=== PATIENT | female | born 1945 | race Caucasian/White ===

== ENCOUNTER → 2018-03-21 07:57 | Outpatient (CLI) | payer OTHER, SELFPAY ==
--- NOTE | 2018-03-21 | DI.MG.S_ITS ---
BILATERAL DIGITAL SCREENING MAMMOGRAM 3D/2D WITH CAD POST LUMPECTOMY: 03/21/2018 CLINICAL: Routine screening. Personal history of right breast cancer. Comparison is made to exams dated: 03/10/2017 mammogram, 03/09/2016 mammogram, and 03/02/2015 mammogram - [facility]. There are scattered fibroglandular elements in both breasts. Current study was also evaluated with a Computer Aided Detection (CAD) system. There are benign post operative findings in the right breast. No significant masses, calcifications, or other findings are seen in either breast. There has been no significant interval change. IMPRESSION: There is no mammographic evidence of malignancy. A 1 year screening mammogram is recommended. This exam was interpreted at Station ID: [id number]. NOTE: For mammograms, a report in lay terms will be sent to the patient. Approximately 15% of breast malignancies will not be visualized mammographically. In the management of a palpable breast mass, a negative mammogram must not discourage biopsy of a clinically suspicious lesion. Electronically Signed By: Connie howard/gianni:03/21/2018 15:59:25 letter sent: Normal Exam ACR BI-RADS Category 2: Benign Finding(s) 3342F
== END ==
PROVIDERS: Family Provider Family Medicine; PCP Family Medicine; Visit Provider Family Medicine
DX: Z12.31 Encounter for screening mammogram for malignant neoplasm of breast (principal); Z85.3 Personal history of malignant neoplasm of breast
CPT/HCPCS: 77063; 77067

== ENCOUNTER 2018-04-25 12:31 | Inpatient (IN) | payer OTHER, SELFPAY ==
[2018-04-25] VITALS (8 sets, daily range): BP systolic 91–154; BP diastolic 51–68; PULSE 79–91; RESP 15–22; TEMP 36.6–36.7; O2SAT 96–100; BMI 24.9
--- NOTE | 2018-04-25 13:03 | ED.SYNCOPE ---
HPI - Syncope General Chief Complaint: Syncope Stated Complaint: PASSED OUT AN HOUR AGO Time Seen by Provider: 04/25/18 12:40 Source: patient Mode of arrival: ambulatory Limitations: no limitations History of Present Illness HPI narrative: Patient is a 72-year-old female who presents after syncopal episode. She says she has been fatigued over the last couple of days. Today while on the toilet she passed out. She felt very lightheaded her was holding her she passed out briefly. As she does have a history of gastric ulcer which was found after numerous blood transfusions and EGD and by that time bleeding had stopped. She is not vomiting she says she does not vomit she sometimes feels nauseated. Over last 1 week she has had some black stool but not consistently. No black stool today. She has no abdominal pain. She denies any shortness of breath. MD complaint: loss of consciousness -: second(s) Related Data Home Medications Medication Instructions Recorded Confirmed lactase 250 mg PO TIDWM #0 05/21/16 04/25/18 loratadine [Claritin] 10 mg PO QDAY #0 05/21/16 04/25/18 aspirin 81 mg PO QDAY #0 09/15/16 04/25/18 CARBOXYMETHYLCELL/HYPROMELLOSE 1 jose OU BID #0 02/08/17 04/25/18 (Genteal Gel Drops) [PRO-BIOTIC] 2 cap PO QDAY #0 02/08/17 04/25/18 [ULTRA-ZYME] 325 mg TIDWM #0 02/08/17 04/25/18 ProAir HFA 2 puff INHALATION PRN PRN 04/25/18 04/25/18 acetaminophen [Tylenol] 650 mg PO Q6H PRN 04/25/18 04/25/18 alprazolam 0.5 - 1 tab PO PRN PRN 04/25/18 04/25/18 beclomethasone dipropionate [Qvar 2 puff INHALATION BID 04/25/18 04/25/18 RediHaler] citalopram 40 mg PO DAILY 04/25/18 04/25/18 clotrimazole-betameth dip-zinc 1 appful TOPICAL BID PRN 04/25/18 04/25/18 cyclobenzaprine 5 - 10 mg PO PRN PRN 04/25/18 04/25/18 diphenhydramine HCl [Benadryl] 50 mg PO Q6-8H PRN 04/25/18 04/25/18 epinephrine [EpiPen 2-Shen] 0.3 mg IM SEE INSTRUCTIONS PRN 04/25/18 04/25/18 fluconazole [Diflucan] 150 mg PO X1 PRN 04/25/18 04/25/18 Previous Rx's Medication Instructions Recorded rizatriptan [Maxalt] 10 mg PO SEE INSTRUCTIONS #12 tab 06/08/17 atenolol 25 mg tablet 25 mg PO QDAY #90 tab 11/23/17 hydrochlorothiazide 25 mg tablet 25 mg PO QDAY #90 tab 02/13/18 nortriptyline 50 mg capsule 50 mg PO HS #90 cap 02/13/18 esomeprazole magnesium 40 mg 40 mg PO QDAY #90 cap 03/13/18 capsule,delayed release ezetimibe 10 mg tablet 10 mg PO Q DAY #90 tab 03/13/18 calcitonin (salmon) 200 1 spray INTRANASAL (ALT) DAILY 03/14/18 unit/actuation nasal spray #3.7 ml Allergies Allergy/AdvReac Type Severity Reaction Status Date / Time lentils [LENTILS] Allergy Severe SOB Verified 04/25/18 13:28 nut - unspecified [NUT] Allergy Severe ANAPHYLAXIS Verified 04/25/18 13:28 soy [SOY] Allergy Severe SOB Verified 04/25/18 13:28 latex [LATEX] Allergy Intermediate RASH Verified 04/25/18 13:28 propofol [PROPOFOL] Allergy Unknown UNSURE OF Verified 04/25/18 13:28 REACTION-related to soy?? corn Allergy Verified 04/25/18 17:31 grapefruit Allergy Verified 04/25/18 17:31 legumes Allergy Verified 04/25/18 17:31 orange Allergy Verified 04/25/18 17:31 potato Allergy Verified 04/25/18 17:31 adhesive tape [ADHESIVE TAPE] AdvReac Mild Verified 04/25/18 13:28 iceburg lettuce Allergy Uncoded 04/25/18 17:31 Review of Systems Review of Systems All systems reviewed & are unremarkable except as noted in HPI and below Constitutional Denies chills, Reports fatigue, Denies fever(s), Denies lethargy and Denies weakness Cardiovascular Reports syncope, Denies palpitations, Denies dyspnea and Denies dyspnea on exertion Respiratory Denies cough, Denies dyspnea, Denies dyspnea on exertion and Denies wheezing Gastrointestinal Gastrointestinal: Reports as per HPI, Denies abdominal pain, Reports change in stool character, Denies diarrhea, Denies nausea and Denies vomiting Musculoskeletal Denies back pain, Denies muscle weakness, Denies numbness and Denies tingling Integumentary/Breasts Denies pruritus, Denies erythema, Denies rash and Denies wounds Neurologic Reports syncope, Denies numbness, Denies tingling and Denies weakness Endocrine Reports fatigue and Denies palpitations Allergic/Immunologic Denies wheezing [facility] Medical History Gastric ulcer (Acute) Surgical History History of cataract removal with insertion of prosthetic lens History of third molar tooth extraction Status post breast lumpectomy Status post hysterectomy Status post laparoscopic cholecystectomy Status post tonsillectomy and adenoidectomy Social History household members: spouse Smoking Status: Never smoker alcohol intake: current Exam Initial Vital Signs Initial Vital Signs: Vital Signs Temperature 98.0 F 04/25/18 12:41 Pulse Rate 89 04/25/18 12:41 Respiratory Rate 15 04/25/18 12:41 Blood Pressure 91/51 L 04/25/18 12:41 Pulse Oximetry 100 04/25/18 12:41 GENERAL: Slightly pale alert and oriented x3 no acute distress HEENT: Head atraumatic,EOMI, pupils reactive, face symmetric, CARDIOVASCULAR: Regular rate and rhythm without murmurs, rubs or gallops. RESPIRATORY: Breath sounds equal bilaterally, no wheezes rales or rhonchi. ABDOMEN: Soft, nontender. Normoactive bowel sounds all 4 quadrants. No guarding or rebound. RECTAL: No stool : No CVA tenderness EXTREMITIES: Normal range of motion, no clubbing or edema. Neurovascularly intact NEUROLOGICAL: Alert and oriented x4.Normal gait and speech. Cranial nerves II through XII grossly intact. SKIN: Warm, dry, no laceration, no petechiae, no rashes or lesions. Course Orders Ordered: ED Orders 04/25/18 13:09 Complete Blood Count AUTO DIFF Stat Comprehensive Metabolic Panel Stat Lactate (Lactic Acid) Stat Packed Cells Stat Partial Thromboplastin Time Stat Prothrombin Time INR Stat Type and Screen Stat Discontinued Medications Sodium Chloride (Normal Saline 0.9%) 1,000 mls @ 1,000 mls/hr IV BOLUS ONE Stop: 04/25/18 14:16 Last Infusion: 04/25/18 14:47 Dose: 0 mls/hr Admin: 04/25/18 13:28 Dose: 1,000 mls/hr Ondansetron HCl (Zofran) 4 mg IV NOW ONE Stop: 04/25/18 13:18 Last Admin: 04/25/18 13:29 Dose: 4 mg Pantoprazole Sodium (Protonix) 40 mg IV NOW ONE Stop: 04/25/18 13:18 Last Admin: 04/25/18 13:29 Dose: 40 mg Vital Signs - 8 hr 04/25/18 12:41 04/25/18 15:07 04/25/18 16:00 Temperature 98.0 F Pulse Rate 89 79 87 Respiratory Rate 15 16 22 Blood Pressure 91/51 L Blood Pressure [Left Arm] 154/54 H 116/61 Pulse Oximetry 100 98 04/25/18 16:16 04/25/18 16:39 Temperature 97.9 F Pulse Rate 82 91 H Respiratory Rate 20 20 Blood Pressure 116/61 109/68 Blood Pressure [Left Arm] Pulse Oximetry 98 100 MDM - Syncope Medical Records Attestation: I reviewed the patient's medical records. Lab Data Attestation: I reviewed the patient's lab results. Result diagrams: 04/25/18 13:09 04/25/18 13:09 Lab Results 04/25/18 04/25/18 04/25/18 Range/Units 13:09 13:09 13:09 WBC 10.5 (4.5-11.0) X10^3/uL RBC 3.41 L (4.0-5.2) X10^6/uL Hgb 10.9 L (12.0-16.0) g/dL Hct 31.4 L (36-46) % MCV 92.1 (80-100) fL MCH 31.9 (26-34) PG MCHC 34.7 (30-36) % RDW 13.6 (11.6-14.8) % Plt Count 265 (150-400) X10^3/uL Neut % (Auto) 73.9 (50-75) % Lymph % (Auto) 16.1 L (25-40) % [place] % (Auto) 8.5 (3-14) % Eos % (Auto) 1.0 L (2-4) % Baso % (Auto) 0.5 (0-2) % Neut # (Auto) 7800 H (1494-9776) /uL PT (10.1-12.7) SECONDS INR (0.9-1.3) APTT (26.4-36.2) SECONDS Sodium (137-145) mmol/L Potassium (3.4-5.1) mmol/L Chloride (98-107) mmol/L Carbon Dioxide (22-32) mmol/L BUN (7-17) mg/dL Creatinine (0.52-1.04) mg/dL Estimated GFR (>60) mL/min BUN/Creatinine Ratio (6-22) Glucose (80-110) mg/dL Lactate 1.5 (0.7-2.1) mmol/L Calcium (8.4-10.2) mg/dL Total Bilirubin (0.2-1.3) mg/dL AST (14-36) IU/L ALT (9-52) IU/L Alkaline Phosphatase (38-126) U/L Total Protein (6.3-8.2) g/dL Albumin (3.5-5.0) g/dL Globulin (1.7-4.1) g/dL Albumin/Globulin Ratio (1.0-2.8) Blood Type A Positive Antibody Screen Negative Crossmatch See Detail 04/25/18 04/25/18 Range/Units 13:09 13:09 WBC (4.5-11.0) X10^3/uL RBC (4.0-5.2) X10^6/uL Hgb (12.0-16.0) g/dL Hct (36-46) % MCV (80-100) fL MCH (26-34) PG MCHC (30-36) % RDW (11.6-14.8) % Plt Count (150-400) X10^3/uL Neut % (Auto) (50-75) % Lymph % (Auto) (25-40) % [place] % (Auto) (3-14) % Eos % (Auto) (2-4) % Baso % (Auto) (0-2) % Neut # (Auto) (7894-2899) /uL PT 12.6 (10.1-12.7) SECONDS INR 1.1 (0.9-1.3) APTT 27 (26.4-36.2) SECONDS Sodium 142 (137-145) mmol/L Potassium 4.1 (3.4-5.1) mmol/L Chloride 105 (98-107) mmol/L Carbon Dioxide 26 (22-32) mmol/L BUN 70 H (7-17) mg/dL Creatinine 0.90 (0.52-1.04) mg/dL Estimated GFR > 60.0 (>60) mL/min BUN/Creatinine Ratio 77.8 H (6-22) Glucose 112 H (80-110) mg/dL Lactate (0.7-2.1) mmol/L Calcium 8.7 (8.4-10.2) mg/dL Total Bilirubin 0.4 (0.2-1.3) mg/dL AST 21 (14-36) IU/L ALT 26 (9-52) IU/L Alkaline Phosphatase 56 (38-126) U/L Total Protein 5.6 L (6.3-8.2) g/dL Albumin 3.3 L (3.5-5.0) g/dL Globulin 2.3 (1.7-4.1) g/dL Albumin/Globulin Ratio 1.4 (1.0-2.8) Blood Type Antibody Screen Crossmatch [facility] Narrative Medical decision making narrative: Patient is not actively bleeding. Initially hypotensive but blood pressure quickly improved with a small amount of fluid. BUN significantly more elevated than creatinine consistent with upper GI bleed. His hemoglobin been and hematocrit is do not meet criteria for blood transfusion. I have spoken with Dr. Zuniga, updated on patient's history of current symptoms and test results. She agrees to consult. No intervention needed on. Dr. Luevano accepts patient Discharge Plan Departure Patient Disposition: Admitted As Inpatient Clinical Impression: Acute upper gastrointestinal bleeding Discharge Date/Time: 04/25/18 16:58 Interventions: ED Discharge Assessment Last Done: 04/25/18 16:16 Admit Date/Time: 04/25/18 16:03 Admit Provider: Yocasta Mcdonnell
[2018-04-25] MEDS: SODIUM CHLORIDE 0.9% 1,000 ML 1000 ML IV (13:28)
[2018-04-25] MEDS: ONDANSETRON 4 MG/2 ML INJ IV (13:29)
[2018-04-25] MEDS: PANTOPRAZOLE 40 MG VIAL IV ×2 (13:29→23:53)
[2018-04-25 13:31] LABS: Add Manual Diff / Slide Review NO; Basophils Percent Auto 0.5 % (0-2); Hematocrit 31.4 % (36-46); Hemoglobin 10.9 g/dL (12.0-16.0); Lymphocytes Percent Auto 16.1 % (25-40); Mean Corpuscular HGB Conc 34.7 % (30-36); Mean Corpuscular Hemoglobin 31.9 PG (26-34); Mean Corpuscular Volume 92.1 fL (80-100); Monocytes Percent Auto 8.5 % (3-14); Neutrophils Absolute Auto 7800 /uL (1500-7000); Neutrophils Percent Auto 73.9 % (50-75); Platelet Count 265 X10^3/uL (150-400); Red Blood Cell Count 3.41 X10^6/uL (4.0-5.2); Red Cell Distribution Width 13.6 % (11.6-14.8); White Blood Cell Count 10.5 X10^3/uL (4.5-11.0)
--- NOTE | 2018-04-25 13:33 | PC.NURSE ---
pt c/o mucous in her BM this morning. denies CP, N&V
[2018-04-25 13:34] LABS: INR 1.1 (0.9-1.3); Prothrombin Time 12.6 SECONDS (10.1-12.7)
[2018-04-25 13:37] LABS: PTT Partial Thromboplastin Tim 27 SECONDS (26.4-36.2)
[2018-04-25 13:39] LABS: Alanine Aminotransferase 26 IU/L (9-52); Albumin 3.3 g/dL (3.5-5.0); Albumin Globulin Ratio 1.4 (1.0-2.8); Alkaline Phosphatase 56 U/L (38-126); Aspartate Aminotransferase 21 IU/L (14-36); BUN Creatinine Ratio 77.8 (6-22); Bilirubin Total 0.4 mg/dL (0.2-1.3); Blood Urea Nitrogen 70 mg/dL (7-17); Calcium 8.7 mg/dL (8.4-10.2); Carbon Dioxide 26 mmol/L (22-32); Chloride 105 mmol/L (98-107); Estimated Glomerular Filt Rate > 60.0 mL/min (>60); Globulin 2.3 g/dL (1.7-4.1); Glucose 112 mg/dL (80-110); HEMOLYSIS < 15 (0-50); Potassium 4.1 mmol/L (3.4-5.1); Sodium 142 mmol/L (137-145); Total Protein 5.6 g/dL (6.3-8.2)
[2018-04-25 13:44] LABS: Lactate (Lactic Acid) 1.5 mmol/L (0.7-2.1)
--- NOTE | 2018-04-25 19:44 | PC.NURSE ---
Addendum entered by Shadia Campbell R.N. 04/25/18 22:57: 2119 H & H 29.[address] Mcdonnell, no orders received. Original Note: Addendum entered by Shadia Campbell R.N. 04/25/18 21:43: Correction to note below . . .Tele reading from ER report Relatively uneventful evening. Denies discomfort. Tele in place, NSR first degree AVB per ICU staff HL intact.patent. H & H drawn at 2109. Call light w/in reach, bed alarm on for pt safety. Continue w/plan of care. Original Note: Pt arrived from ER to RM 214 at 1630. Pt and spouse oriented to room and call system. Pt states she had a syncopal episode earlier today. Denies such at this time. Tele in place showing NSR per ICU staff. HL in LFA intact/patent. Call light w/in reach, bed alarm on for pt safety.
--- NOTE | 2018-04-25 21:23 | PM.HP.1 ---
History of Present Illness Date Patient Seen: 04/25/18 Time Patient Seen: 16:45 Chief complaint: PASSED OUT AN HOUR AGO Narrative: Patient is a 72-year-old female who follows with Dr. Babin here today with her because of the syncopal episode earlier today. She has a history of a GI bleed in the past year requiring 4 units of blood. Her blood pressures at home and on presentation were systolic in the 80s. She was given fluids in the emergency department and her blood pressures have improved and she is feeling much better. Tells me for the last few days she has been feeling more fatigued than normal. She tells me that last week she had a stool that smelled like melena. However she has not had any stools that looked like melena. She has a history constipation predominant IBS. She also tells me that yesterday afternoon she had an episode of a looser stool with some urgency so she took some antidiarrheal medications. Physician in the ED was unable to get stool on rectal exam. She has no pain type complaints. She does occasionally get abdominal distension but does not have that now. Patient History Medical History Breast cancer (Acute) Gastric ulcer (Acute) IBS (irritable bowel syndrome) (Acute) Surgical History History of cataract removal with insertion of prosthetic lens History of third molar tooth extraction Status post breast lumpectomy Status post hysterectomy Status post laparoscopic cholecystectomy Status post tonsillectomy and adenoidectomy Family & Social History Social History: household members spouse Safety & Behavioral: Feels Safe in Current Yes Environment Been Physically Hurt or No Threatened By a Person Suicidal Ideation Description None Suicide Plan Description No Plan Tobacco & Substance use: Smoking Status Never smoker alcohol intake current alcohol intake frequency holiday/special occasion Substance Use Type does not use Meds Home Medications Medication Instructions Recorded Confirmed Type lactase 250 mg PO TIDWM #0 05/21/16 04/25/18 History loratadine [Claritin] 10 mg PO QDAY #0 05/21/16 04/25/18 History aspirin 81 mg PO QDAY #0 09/15/16 04/25/18 History CARBOXYMETHYLCELL/HYPROMELLOSE 1 jose OU BID #0 02/08/17 04/25/18 History (Genteal Gel Drops) [PRO-BIOTIC] 2 cap PO QDAY #0 02/08/17 04/25/18 History [ULTRA-ZYME] 325 mg TIDWM #0 02/08/17 04/25/18 History rizatriptan [Maxalt] 10 mg PO SEE INSTRUCTIONS #12 tab 06/08/17 04/25/18 Rx atenolol 25 mg tablet 25 mg PO QDAY #90 tab 11/23/17 04/25/18 Rx hydrochlorothiazide 25 mg tablet 25 mg PO QDAY #90 tab 02/13/18 04/25/18 Rx nortriptyline 50 mg capsule 50 mg PO HS #90 cap 02/13/18 04/25/18 Rx esomeprazole magnesium 40 mg 40 mg PO QDAY #90 cap 03/13/18 04/25/18 Rx capsule,delayed release ezetimibe 10 mg tablet 10 mg PO Q DAY #90 tab 03/13/18 04/25/18 Rx calcitonin (salmon) 200 1 spray INTRANASAL (ALT) DAILY 03/14/18 04/25/18 Rx unit/actuation nasal spray #3.7 ml ProAir HFA 2 puff INHALATION PRN PRN 04/25/18 04/25/18 History acetaminophen [Tylenol] 650 mg PO Q6H PRN 04/25/18 04/25/18 History alprazolam 0.5 - 1 tab PO PRN PRN 04/25/18 04/25/18 History beclomethasone dipropionate [Qvar 2 puff INHALATION BID 04/25/18 04/25/18 History RediHaler] citalopram 40 mg PO DAILY 04/25/18 04/25/18 History clotrimazole-betameth dip-zinc 1 appful TOPICAL BID PRN 04/25/18 04/25/18 History cyclobenzaprine 5 - 10 mg PO PRN PRN 04/25/18 04/25/18 History diphenhydramine HCl [Benadryl] 50 mg PO Q6-8H PRN 04/25/18 04/25/18 History epinephrine [EpiPen 2-Shen] 0.3 mg IM SEE INSTRUCTIONS PRN 04/25/18 04/25/18 History fluconazole [Diflucan] 150 mg PO X1 PRN 04/25/18 04/25/18 History Allergies Allergy/AdvReac Type Severity Reaction Status Date / Time lentils [LENTILS] Allergy Severe SOB Verified 04/25/18 13:28 nut - unspecified [NUT] Allergy Severe ANAPHYLAXIS Verified 04/25/18 13:28 soy [SOY] Allergy Severe SOB Verified 04/25/18 13:28 latex [LATEX] Allergy Intermediate RASH Verified 04/25/18 13:28 propofol [PROPOFOL] Allergy Unknown UNSURE OF Verified 04/25/18 13:28 REACTION-related to soy?? corn Allergy Verified 04/25/18 17:31 grapefruit Allergy Verified 04/25/18 17:31 legumes Allergy Verified 04/25/18 17:31 orange Allergy Verified 04/25/18 17:31 potato Allergy Verified 04/25/18 17:31 adhesive tape [ADHESIVE TAPE] AdvReac Mild Verified 04/25/18 13:28 iceburg lettuce Allergy Uncoded 04/25/18 17:31 Review of Systems Review of Systems All systems reviewed & are unremarkable except as noted in HPI and below Exam Vital Signs (past 8 hours): - 04/25/18 15:07 04/25/18 16:00 04/25/18 16:16 Temperature Pulse Rate 79 87 82 Respiratory Rate 16 22 20 Blood Pressure 116/61 Blood Pressure [Left Arm] 154/54 H 116/61 Pulse Oximetry 98 98 04/25/18 16:39 04/25/18 21:17 Temperature 97.9 F 97.9 F Pulse Rate 91 H 87 Respiratory Rate 20 20 Blood Pressure 109/68 118/54 L Blood Pressure [Left Arm] Pulse Oximetry 100 96 Oxygen Delivery Method Room Air Narrative Exam Narrative: General: Well-developed, well-nourished, female, no acute distress. Heart: Regular rate and rhythm, 2-3/6 murmur heard everywhere Lungs: Clear to auscultation bilaterally, no wheezes, rales or rhonchi Abd: BS+, soft, nontender, nondistended, no rebound, no guarding Extremities: Warm and well perfused, no edema Objective Labs Result Diagrams: 04/25/18 13:09 04/25/18 13:09 Labs: Laboratory Results - last 24 hr 04/25/18 04/25/18 04/25/18 13:09 13:09 13:09 WBC 10.5 RBC 3.41 L Hgb 10.9 L Hct 31.4 L MCV 92.1 MCH 31.9 MCHC 34.7 RDW 13.6 Plt Count 265 Neut % (Auto) 73.9 Lymph % (Auto) 16.1 L [place] % (Auto) 8.5 Eos % (Auto) 1.0 L Baso % (Auto) 0.5 Neut # (Auto) 7800 H PT INR APTT Sodium Potassium Chloride Carbon Dioxide BUN Creatinine Estimated GFR BUN/Creatinine Ratio Glucose Lactate 1.5 Calcium Total Bilirubin AST ALT Alkaline Phosphatase Total Protein Albumin Globulin Albumin/Globulin Ratio Blood Type A Positive Antibody Screen Negative Crossmatch See Detail 04/25/18 04/25/18 13:09 13:09 WBC RBC Hgb Hct MCV MCH MCHC RDW Plt Count Neut % (Auto) Lymph % (Auto) [place] % (Auto) Eos % (Auto) Baso % (Auto) Neut # (Auto) PT 12.6 INR 1.1 APTT 27 Sodium 142 Potassium 4.1 Chloride 105 Carbon Dioxide 26 BUN 70 H Creatinine 0.90 Estimated GFR > 60.0 BUN/Creatinine Ratio 77.8 H Glucose 112 H Lactate Calcium 8.7 Total Bilirubin 0.4 AST 21 ALT 26 Alkaline Phosphatase 56 Total Protein 5.6 L Albumin 3.3 L Globulin 2.3 Albumin/Globulin Ratio 1.4 Blood Type Antibody Screen Crossmatch Assessment & Plan Plan: Assessment/Plan Narrative: 72 yo female with history of GI bleed presenting with syncopal episode secondary to hypotension likely from dehydration given BUN of 70. Responded well to hydration. 1. GI: history of gastric ulcer, gastritis, and reflux. Has been on PPI. Hgb is lower than last checked 12.7 - 10.9. Serial H+H. Blood has been typed and screened. Surgery was consulted. Will monitor for now. Avoid anticoagulants. Protonix twice daily. Can have clears. 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 Monitor for now. 3. Hypertension, depression, anxiety, allergies. Continue home medications. CODE STATUS: full code DVT prophylaxis: SCD's Patient is at high risk for worsening of her anemia and requires hospital monitoring. I anticipate that this will be for the next [address] Babin to see in the AM.
[2018-04-25 21:30] LABS: Hematocrit 29.1 % (36-46); Hemoglobin 9.8 g/dL (12.0-16.0)
[2018-04-25] MEDS: NORTRIPTYLINE HCL 25 MG CAPSULE 50 MG PO (22:44)
[2018-04-25] MEDS: ATENOLOL 25 MG TABLET PO (22:47)
[2018-04-25] MEDS: CITALOPRAM 20 MG TABLET 40 MG PO (22:47)
[2018-04-26] VITALS (7 sets, daily range): BP systolic 97–109; BP diastolic 39–49; PULSE 63–85; RESP 13–18; TEMP 36.4–36.9; O2SAT 97–100
[2018-04-26 05:56] LABS: BUN Creatinine Ratio 57.8 (6-22); Blood Urea Nitrogen 52 mg/dL (7-17); Calcium 8.4 mg/dL (8.4-10.2); Carbon Dioxide 24 mmol/L (22-32); Chloride 110 mmol/L (98-107); Estimated Glomerular Filt Rate > 60.0 mL/min (>60); Glucose 86 mg/dL (80-110); HEMOLYSIS < 15 (0-50); Potassium 3.2 mmol/L (3.4-5.1); Sodium 141 mmol/L (137-145)
[2018-04-26 08:30] LABS: Add Manual Diff / Slide Review NO; Basophils Percent Auto 0.5 % (0-2); Eosinophils Percent Auto 1.6 % (2-4); Hematocrit 28.8 % (36-46); Hemoglobin 9.7 g/dL (12.0-16.0); Lymphocytes Percent Auto 34.7 % (25-40); Mean Corpuscular HGB Conc 33.6 % (30-36); Mean Corpuscular Hemoglobin 30.9 PG (26-34); Mean Corpuscular Volume 92.1 fL (80-100); Monocytes Percent Auto 8.1 % (3-14); Neutrophils Absolute Auto 4700 /uL (1500-7000); Neutrophils Percent Auto 55.1 % (50-75); Platelet Count 237 X10^3/uL (150-400); Red Blood Cell Count 3.13 X10^6/uL (4.0-5.2); Red Cell Distribution Width 13.7 % (11.6-14.8); White Blood Cell Count 8.6 X10^3/uL (4.5-11.0)
--- NOTE | 2018-04-26 09:14 | CM.DANOTE ---
DCP: Case received, EMR reviewed and met with patient. Introduced self and role. DCP template completed with information currently available. Patient is a 72 year old female who admitted yesterday afternoon to the care of the hospitalist team. PCP: Dr. Babin. Payer: confirmed: [facility]. Patient came to hospital via family vehicle, with symptoms of syncope/fatigue. Patient carries diagnosis of Anemia. She has had this history, along with GI bleed. Met with patient in room, pleasant, alert and oriented. She mentioned this anemia has been an ongoing problem. Patient resides with spouse in [place]. She is independent at home. Patient has had transfusions in the past. P: DCP to follow closely. Patient should be able to return home when she is medically stable. Verna Goldberg RN/Technical Expert
[2018-04-26 09:46] LABS: HEMOLYSIS < 15 (0-50); Iron 99 ug/dL (37-170)
[2018-04-26 10:01] LABS: Total Iron Binding Capacity 279 ug/dL (265-497)
[2018-04-26 10:02] LABS: Percent Iron Saturation 35 % (15-50); Transferrin 214 mg/dL (206-381)
--- NOTE | 2018-04-26 10:23 | PC.NURSE ---
Addendum entered by Rosalba Ellison R.N. 04/26/18 15:10: LAB - reported the 1400 H&H to , new order entered for repeat HH at 1800. Original Note: Addendum entered by Rosalba Ellison R.N. 04/26/18 14:56: GI - subhash clear liq lunch, no abd pain, did ambul into br w/formed light and dark brown stool, guaiac positive. Original Note: AM NOTE - alert, spouse in at bedside this am, H&H reviewed with this am, hr 62, reports some dizziness when up to br earlier, discussed medications and will hold atenolol for now, denies nausea and subhash clear liq, ra 98%.
[2018-04-26] MEDS: KCL 40 MEQ IN NS 1,000 ML 125 MEQ IV ×2 (10:43→19:25)
[2018-04-26 11:59] LABS: Ferritin 15.7 ng/mL (11.1-264)
[2018-04-26] MEDS: PANTOPRAZOLE 40 MG VIAL IV (13:40)
[2018-04-26 14:15] LABS: Add Manual Diff / Slide Review NO; Basophils Percent Auto 0.4 % (0-2); Eosinophils Percent Auto 1.6 % (2-4); Hematocrit 24.8 % (36-46); Hemoglobin 8.5 g/dL (12.0-16.0); Lymphocytes Percent Auto 29.3 % (25-40); Mean Corpuscular HGB Conc 34.2 % (30-36); Mean Corpuscular Hemoglobin 31.4 PG (26-34); Mean Corpuscular Volume 91.9 fL (80-100); Monocytes Percent Auto 7.2 % (3-14); Neutrophils Absolute Auto 5200 /uL (1500-7000); Neutrophils Percent Auto 61.5 % (50-75); Platelet Count 219 X10^3/uL (150-400); Red Cell Distribution Width 13.7 % (11.6-14.8); White Blood Cell Count 8.4 X10^3/uL (4.5-11.0)
[2018-04-26 14:26] LABS: BUN Creatinine Ratio 58.8 (6-22); Blood Urea Nitrogen 47 mg/dL (7-17); Calcium 7.9 mg/dL (8.4-10.2); Carbon Dioxide 25 mmol/L (22-32); Chloride 111 mmol/L (98-107); Estimated Glomerular Filt Rate > 60.0 mL/min (>60); Glucose 93 mg/dL (80-110); HEMOLYSIS < 15 (0-50); Potassium 4.1 mmol/L (3.4-5.1); Sodium 144 mmol/L (137-145)
--- NOTE | 2018-04-26 15:34 | P.CONS_ITS ---
History of Present Illness Date Patient Seen: 04/26/18 Time Patient Seen: 10:26 Chief complaint: PASSED OUT AN HOUR AGO Reason for consult: GI bleeding Requesting provider: Vipul Babin Narrative: Elizabeth is a very pleasant 9-year-old lady who is well known to me from prior visits. She has a history of having had a GI bleed about a year ago. She has a Elizabeth fundoplication for significant reflux disease but it has essentially completely failed. She was seen at [facility] for consideration of repeat reflux surgery but due to the presence of significant esophageal dysmotility, she was determined not to be a surgical candidate. She last had an upper GI endoscopy in May 2017. At that time she had no gastritis and no danita ulceration or location for GI bleeding. A month prior to that visit, she had an EGD which showed some gastritis or small ulcer. She had an episode late yesterday afternoon after which time she felt very faint. She says that her energy has been low in the past couple of weeks or so. She does not recall ever seeing any danita blood in her stool. She feels like she has had a couple of stools that smelled like melena but she has not really seen any blood. She also takes iron supplements every day and isn't sure whether not the appearance and smell of the stool was related to the iron. She is concerned about this problem more now than ever because she is planning a 7 week trip to [facility] in [facility] and wants to make sure she has everything settled before leaving the country. Since arriving here, she has not had any stools. She has not had any syncopal episodes or any clinical evidence of bleeding. She was hypotensive when she presented to the emergency room but responded quickly to IV hydration. She denies any abdominal pain at this time. She reports that she has been taking her proton pump inhibitor once daily. Since being admitted to the hospital yesterday, she has been taking it twice daily. [facility] Medical History Breast cancer (Acute) Gastric ulcer (Acute) IBS (irritable bowel syndrome) (Acute) Surgical History History of cataract removal with insertion of prosthetic lens History of third molar tooth extraction Status post breast lumpectomy Status post hysterectomy Status post laparoscopic cholecystectomy Status post tonsillectomy and adenoidectomy Social History household members: spouse Smoking Status: Never smoker alcohol intake: current Meds Home Medications Medication Instructions Recorded Confirmed Type lactase 250 mg PO TIDWM #0 05/21/16 04/25/18 History loratadine [Claritin] 10 mg PO QDAY #0 05/21/16 04/25/18 History aspirin 81 mg PO QDAY #0 09/15/16 04/25/18 History CARBOXYMETHYLCELL/HYPROMELLOSE 1 jose OU BID #0 02/08/17 04/25/18 History (Genteal Gel Drops) [PRO-BIOTIC] 2 cap PO QDAY #0 02/08/17 04/25/18 History [ULTRA-ZYME] 325 mg TIDWM #0 02/08/17 04/25/18 History rizatriptan [Maxalt] 10 mg PO SEE INSTRUCTIONS #12 tab 06/08/17 04/25/18 Rx atenolol 25 mg tablet 25 mg PO QDAY #90 tab 11/23/17 04/25/18 Rx hydrochlorothiazide 25 mg tablet 25 mg PO QDAY #90 tab 02/13/18 04/25/18 Rx nortriptyline 50 mg capsule 50 mg PO HS #90 cap 02/13/18 04/25/18 Rx esomeprazole magnesium 40 mg 40 mg PO QDAY #90 cap 03/13/18 04/25/18 Rx capsule,delayed release ezetimibe 10 mg tablet 10 mg PO Q DAY #90 tab 03/13/18 04/25/18 Rx calcitonin (salmon) 200 1 spray INTRANASAL (ALT) DAILY 03/14/18 04/25/18 Rx unit/actuation nasal spray #3.7 ml ProAir HFA 2 puff INHALATION PRN PRN 04/25/18 04/25/18 History acetaminophen [Tylenol] 650 mg PO Q6H PRN 04/25/18 04/25/18 History alprazolam 0.5 - 1 tab PO PRN PRN 04/25/18 04/25/18 History beclomethasone dipropionate [Qvar 2 puff INHALATION BID 04/25/18 04/25/18 History RediHaler] citalopram 40 mg PO DAILY 04/25/18 04/25/18 History clotrimazole-betameth dip-zinc 1 appful TOPICAL BID PRN 04/25/18 04/25/18 History cyclobenzaprine 5 - 10 mg PO PRN PRN 04/25/18 04/25/18 History diphenhydramine HCl [Benadryl] 50 mg PO Q6-8H PRN 04/25/18 04/25/18 History epinephrine [EpiPen 2-Shen] 0.3 mg IM SEE INSTRUCTIONS PRN 04/25/18 04/25/18 History fluconazole [Diflucan] 150 mg PO X1 PRN 04/25/18 04/25/18 History Allergies Allergy/AdvReac Type Severity Reaction Status Date / Time lentils [LENTILS] Allergy Severe SOB Verified 04/25/18 13:28 nut - unspecified [NUT] Allergy Severe ANAPHYLAXIS Verified 04/25/18 13:28 soy [SOY] Allergy Severe SOB Verified 04/25/18 13:28 latex [LATEX] Allergy Intermediate RASH Verified 04/25/18 13:28 propofol [PROPOFOL] Allergy Unknown UNSURE OF Verified 04/25/18 13:28 REACTION-related to soy?? corn Allergy Verified 04/25/18 17:31 grapefruit Allergy Verified 04/25/18 17:31 legumes Allergy Verified 04/25/18 17:31 orange Allergy Verified 04/25/18 17:31 potato Allergy Verified 04/25/18 17:31 adhesive tape [ADHESIVE TAPE] AdvReac Mild Verified 04/25/18 13:28 iceburg lettuce Allergy Uncoded 04/25/18 17:31 Review of Systems Review of Systems All systems reviewed & are unremarkable except as noted in HPI and below Exam Vital Signs (past 8 hours): - 04/26/18 08:00 04/26/18 10:33 04/26/18 12:00 Temperature 98.2 F 98.3 F Pulse Rate 63 74 Respiratory Rate 16 16 Blood Pressure 106/48 L 97/40 L Pulse Oximetry 100 97 99 Oxygen Delivery Method Room Air Oxygen Flow Rate 0 Narrative Exam Narrative: Very pleasant lady in no obvious distress. She isn't happy mood and would like to know with the planus. HEENT: Normocephalic and atraumatic, pupils are equal round and reactive to light accommodation with anicteric sclera Lungs: Essentially clear bilaterally Heart: Regular rate and rhythm without murmur rub or gallop Abdomen: Soft, nontender, hyperactive bowel tones. No masses or skin lesions appreciated. No hernias appreciated. Extremities: Warm and well perfused Objective Labs Result Diagrams: 04/26/18 Unknown 04/26/18 14:00 Labs: Laboratory Results - last 24 hr 04/25/18 04/25/18 04/25/18 13:09 13:09 21:28 WBC RBC Hgb 9.8 L Hct 29.1 L MCV MCH MCHC RDW Plt Count Neut % (Auto) Lymph % (Auto) [place] % (Auto) Eos % (Auto) Baso % (Auto) Neut # (Auto) Sodium Potassium Chloride Carbon Dioxide BUN Creatinine Estimated GFR BUN/Creatinine Ratio Glucose Calcium Iron 99 TIBC 279 % Saturation 35 Transferrin 214 Ferritin 15.7 04/26/18 04/26/18 04/26/18 05:32 14:00 14:00 WBC 8.4 RBC 2.70 L Hgb 8.5 L Hct 24.8 L MCV 91.9 MCH 31.4 MCHC 34.2 RDW 13.7 Plt Count 219 Neut % (Auto) 61.5 Lymph % (Auto) 29.3 [place] % (Auto) 7.2 Eos % (Auto) 1.6 L Baso % (Auto) 0.4 Neut # (Auto) 5200 Sodium 141 144 Potassium 3.2 L 4.1 Chloride 110 H 111 H Carbon Dioxide 24 25 BUN 52 H 47 H Creatinine 0.90 0.80 Estimated GFR > 60.0 > 60.0 BUN/Creatinine Ratio 57.8 H 58.8 H Glucose 86 93 Calcium 8.4 7.9 L Iron TIBC % Saturation Transferrin Ferritin 04/26/18 Unknown WBC 8.6 RBC 3.13 L Hgb 9.7 L Hct 28.8 L MCV 92.1 MCH 30.9 MCHC 33.6 RDW 13.7 Plt Count 237 Neut % (Auto) 55.1 Lymph % (Auto) 34.7 [place] % (Auto) 8.1 Eos % (Auto) 1.6 L Baso % (Auto) 0.5 Neut # (Auto) 4700 Sodium Potassium Chloride Carbon Dioxide BUN Creatinine Estimated GFR BUN/Creatinine Ratio Glucose Calcium Iron TIBC % Saturation Transferrin Ferritin Assessment & Plan Plan: Assessment/Plan Narrative: A syncopal or near syncopal episode in the setting of chronic anemia. We do not actually have evidence of any active or recent hemorrhage though it is certainly possible. If she has bled recently, she appears to have stopped at this time and her hemoglobin is stable. I would recommend iron polysaccharide as opposed to Veress gluconate or ferous sulfate. It is better tolerated in better absorbed then the other 2. I do not think we have much to gain by performing an endoscopy now. If she has bled recently all we can offer her at endoscopy is a chance to make her bleed again. If she bleeds again while hospitalized and we can see clinical evidence of it, that would be an indication to perform an endoscopy. I would continue proton pump inhibitors twice a day. I would like to see her in the office in a couple weeks. As long as her symptoms have resolved, we can certainly perform an endoscopy and once again check for H pylori. I would advance her diet and watch her overnight. If she does well she can be discharged home in the morning.
--- NOTE | 2018-04-26 16:47 | RT ---
Note given to Dr. Babin requesting he DC the Qvar order; pt uses this prn, and has not used in a long time
[2018-04-26 18:11] LABS: Hematocrit 24.9 % (36-46); Hemoglobin 8.2 g/dL (12.0-16.0)
[2018-04-26] MEDS: NORTRIPTYLINE HCL 25 MG CAPSULE 50 MG PO (20:37)
[2018-04-26] MEDS: CITALOPRAM 20 MG TABLET 40 MG PO (20:37)
[2018-04-26] MEDS: ACETAMINOPHEN 325 MG TABLET 650 MG PO (20:37)
[2018-04-26] MEDS: LORATADINE 10 MG TABLET PO (20:38)
--- NOTE | 2018-04-26 21:04 | PM.PN.1 ---
Subjective Date Patient Seen: 04/26/18 Time Patient Seen: 18:04 Interval history: The patient is still feeling weak tired. Attempted as stool this morning but it was mucus got somewhat lightheaded going to and fro his bed. Not terribly interested in eating. This afternoon she had fairly large black stool in the toilet. And she was lightheaded going to and fro the toilet. Currently at this time she is resting quietly a just feels tired. Exam Vital Signs (past 8 hours): - 04/26/18 15:00 04/26/18 16:13 04/26/18 20:41 Temperature 98.4 F 97.9 F Pulse Rate 71 73 Respiratory Rate 14 13 Blood Pressure 98/43 L 106/39 L Pulse Oximetry 100 97 97 Oxygen Delivery Method Room Air Oxygen Flow Rate 0 Narrative Exam Narrative: The patient is seen twice today. Early this morning she seemed comfortable had not really done much she weighs activity overnight. No abdominal pain passing gas new. This evening she was tucked underneath her blankets pain to being cold. Her lungs are clear heart regular rhythm and her abdominal exam was soft the and nontender Nursing report large melanotic stool this afternoon Objective Labs Result Diagrams: 04/26/18 Unknown 04/26/18 14:00 Labs: Laboratory Results - last 24 hr 04/25/18 04/25/18 04/25/18 13:09 13:09 21:28 WBC RBC Hgb 9.8 L Hct 29.1 L MCV MCH MCHC RDW Plt Count Neut % (Auto) Lymph % (Auto) [place] % (Auto) Eos % (Auto) Baso % (Auto) Neut # (Auto) Sodium Potassium Chloride Carbon Dioxide BUN Creatinine Estimated GFR BUN/Creatinine Ratio Glucose Calcium Iron 99 TIBC 279 % Saturation 35 Transferrin 214 Ferritin 15.7 04/26/18 04/26/18 04/26/18 05:32 14:00 14:00 WBC 8.4 RBC 2.70 L Hgb 8.5 L Hct 24.8 L MCV 91.9 MCH 31.4 MCHC 34.2 RDW 13.7 Plt Count 219 Neut % (Auto) 61.5 Lymph % (Auto) 29.3 [place] % (Auto) 7.2 Eos % (Auto) 1.6 L Baso % (Auto) 0.4 Neut # (Auto) 5200 Sodium 141 144 Potassium 3.2 L 4.1 Chloride 110 H 111 H Carbon Dioxide 24 25 BUN 52 H 47 H Creatinine 0.90 0.80 Estimated GFR > 60.0 > 60.0 BUN/Creatinine Ratio 57.8 H 58.8 H Glucose 86 93 Calcium 8.4 7.9 L Iron TIBC % Saturation Transferrin Ferritin 04/26/18 04/26/18 18:03 Unknown WBC 8.6 RBC 3.13 L Hgb 8.2 L 9.7 L Hct 24.9 L 28.8 L MCV 92.1 MCH 30.9 MCHC 33.6 RDW 13.7 Plt Count 237 Neut % (Auto) 55.1 Lymph % (Auto) 34.7 [place] % (Auto) 8.1 Eos % (Auto) 1.6 L Baso % (Auto) 0.5 Neut # (Auto) 4700 Sodium Potassium Chloride Carbon Dioxide BUN Creatinine Estimated GFR BUN/Creatinine Ratio Glucose Calcium Iron TIBC % Saturation Transferrin Ferritin labs reviewed. She had a hemoglobin drawn at unknown lab report shows it was reported at approximately 8:00 a.m. this morning hemoglobin then was 9.7 follow-up hemoglobin today is 1400 was 8.5 and at 6:00 p.m. was 8.3 additionally patient short a potassium and BUN had improved slightly Assessment & Plan Plan: Assessment/Plan Narrative: 1. Presumed upper GI bleed based on the melena. Patient's hemoglobin has dropped somewhat from this morning stabilize out since his afternoon presumably. Will rediscuss the case with Dr. Zuniga to reconsider doing endoscopy as her hemoglobin is indeed dropped 2. acute blood loss anemia. 3. chronic anemia. 4. chronic anxiety stable. 5. history of hypertension and hypertensive will be him pending reassessment of patient's vital signs and need for antihypertensive at least temporarily. 6. status post Rvier fundoplication with some secondary residual apparently has been assessed in the past
[2018-04-27] VITALS (17 sets, daily range): BP systolic 99–134; BP diastolic 47–89; PULSE 71–86; RESP 16–18; TEMP 36.6–36.9; O2SAT 96–99
[2018-04-27] MEDS: PANTOPRAZOLE 40 MG VIAL IV ×3 (00:23→23:48)
[2018-04-27] MEDS: KCL 40 MEQ IN NS 1,000 ML 125 MEQ IV ×2 (03:30→21:36)
[2018-04-27 06:28] LABS: Add Manual Diff / Slide Review NO; Basophils Percent Auto 0.9 % (0-2); Eosinophils Percent Auto 3.7 % (2-4); Hematocrit 23.7 % (36-46); Mean Corpuscular Hemoglobin 31.4 PG (26-34); Mean Corpuscular Volume 92.4 fL (80-100); Monocytes Percent Auto 7.9 % (3-14); Neutrophils Absolute Auto 3100 /uL (1500-7000); Neutrophils Percent Auto 52.5 % (50-75); Platelet Count 197 X10^3/uL (150-400); Red Blood Cell Count 2.56 X10^6/uL (4.0-5.2); Red Cell Distribution Width 13.8 % (11.6-14.8); White Blood Cell Count 5.9 X10^3/uL (4.5-11.0)
--- NOTE | 2018-04-27 06:52 | PC.NURSE ---
A&OX3, 97%RA, LS Clear. vss. soft heart murmur. pt denied pain or n/v. BTx4. pt feels weak. 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 IVF infusing. call light in reach. bed alarm active.
--- NOTE | 2018-04-27 08:37 | P.PN_ITS ---
Subjective Date Patient Seen: 04/27/18 Time Patient Seen: 08:35 Interval history: Patient able to sleep during the night. Has minimal abdominal pain. No nausea. Apparently had 2 stools yesterday the 1st 1 was brown but guaiac-positive. Second 1 reportedly was ?dark? Patient out of bed this morning to urinate and had no problems dizziness or lightheaded overall feeling better. Concerned about the reason for the decrease in hemoglobin. Exam Vital Signs (past 8 hours): - 04/27/18 03:32 Temperature 98.0 F Pulse Rate 76 Respiratory Rate 18 Blood Pressure 112/47 L Pulse Oximetry 97 Oxygen Delivery Method Room Air Oxygen Flow Rate 0 Narrative Exam Narrative: The patient initially was evaluated as she walked back from the toilet to bed. She was in examined in the bed. She appeared in no distress abdominal exam was benign nontender no masses Lungs are clear heart regular rhythm no murmur gallop Objective Labs Result Diagrams: 04/27/18 05:41 04/26/18 14:00 Labs: Laboratory Results - last 24 hr 04/25/18 04/25/18 04/25/18 13:09 13:09 13:09 WBC RBC Hgb Hct MCV MCH MCHC RDW Plt Count Neut % (Auto) Lymph % (Auto) [place] % (Auto) Eos % (Auto) Baso % (Auto) Neut # (Auto) Sodium Potassium Chloride Carbon Dioxide BUN Creatinine Estimated GFR BUN/Creatinine Ratio Glucose Calcium Iron 99 TIBC 279 % Saturation 35 Transferrin 214 Ferritin 15.7 Crossmatch See Detail 04/26/18 04/26/18 04/26/18 14:00 14:00 18:03 WBC 8.4 RBC 2.70 L Hgb 8.5 L 8.2 L Hct 24.8 L 24.9 L MCV 91.9 MCH 31.4 MCHC 34.2 RDW 13.7 Plt Count 219 Neut % (Auto) 61.5 Lymph % (Auto) 29.3 [place] % (Auto) 7.2 Eos % (Auto) 1.6 L Baso % (Auto) 0.4 Neut # (Auto) 5200 Sodium 144 Potassium 4.1 Chloride 111 H Carbon Dioxide 25 BUN 47 H Creatinine 0.80 Estimated GFR > 60.0 BUN/Creatinine Ratio 58.8 H Glucose 93 Calcium 7.9 L Iron TIBC % Saturation Transferrin Ferritin Crossmatch 04/27/18 05:41 WBC 5.9 RBC 2.56 L Hgb 8.0 L Hct 23.7 L MCV 92.4 MCH 31.4 MCHC 34.0 RDW 13.8 Plt Count 197 Neut % (Auto) 52.5 Lymph % (Auto) 35.0 [place] % (Auto) 7.9 Eos % (Auto) 3.7 Baso % (Auto) 0.9 Neut # (Auto) 3100 Sodium Potassium Chloride Carbon Dioxide BUN Creatinine Estimated GFR BUN/Creatinine Ratio Glucose Calcium Iron TIBC % Saturation Transferrin Ferritin Crossmatch labs reviewed from this morning. Hemoglobin continue to drop. Currently down to 8.0. Yesterday morning hemoglobin was 9.7. Electrolytes from this morning are pending patient had hypokalemia yesterday that was corrected yesterday afternoon Assessment & Plan Plan: Assessment/Plan Narrative: 1. Patient has had continued drop in hemoglobin. Presumption that she is still bleeding from upper gastrointestinal source. Will transfuse 2 units of pack cells. Rediscuss issues with Dr. Zuniga. Reconsider EGD. Electrolyte imbalance corrected. Because of the persistence and a decrease in hemoglobin patient will certainly require at least 2 more days hospitalization for observation and perhaps diagnostic examination. Dr. Mcdonnell bat person for the weekend who will be making rounds on patient
[2018-04-27 09:12] LABS: BUN Creatinine Ratio 38.8 (6-22); Blood Urea Nitrogen 31 mg/dL (7-17); Carbon Dioxide 22 mmol/L (22-32); Chloride 115 mmol/L (98-107); Estimated Glomerular Filt Rate > 60.0 mL/min (>60); Glucose 80 mg/dL (80-110); HEMOLYSIS < 15 (0-50); Potassium 4.8 mmol/L (3.4-5.1); Sodium 143 mmol/L (137-145)
--- NOTE | 2018-04-27 10:26 | PC.NURSE ---
Addendum entered by Rosalba Ellison R.N. 04/27/18 12:05: GI - up to br and had large, softly formed dark tarry stool. Original Note: Addendum entered by Rosalba Ellison R.N. 04/27/18 11:46: ms/gi - standby assist oob, ambul br w/void, no stool, denies dizziness when up, ret to chair, advised pt surg schedule and enc po intake this afternoon, subhash sips water. Original Note: Addendum entered by Rosalba Ellison R.N. 04/27/18 11:13: GI - per , pt will have egd 10am 04/28/18, return to diet and npo after midn. Original Note: AM NOTE - pt is alert, no complaint abd discomfort, membranes are pale, standby assist to br, denies dizziness this am, ret to bed, voided and no stool this am, bs clear, ra 99%, in this am and will continue npo status until we hear otherwise, new order to transfuse 2 units prbc, consent signed and 1st unit started this am.
[2018-04-27] MEDS: SODIUM CHLORIDE 0.9% FLUSH 10 ML IV ×2 (10:40→20:35)
--- NOTE | 2018-04-27 11:12 | PM.PN.1 ---
Subjective Date Patient Seen: 04/27/18 Time Patient Seen: 11:12 Interval history: Patient denies pain. Her hemoglobin has continued to drop over the day. Dr. Babin saw her this morning and she is getting 2 units of packed red blood cells. Our plan when I saw her yesterday was to avoid scoping her if she stabilized at hemoglobin around 9. Since that is not the case, she will receive blood today and we will plan for EGD in the morning at 10:00 a.m.. She is NPO after midnight. Exam Vital Signs (past 8 hours): - 04/27/18 03:32 04/27/18 09:00 04/27/18 09:10 Temperature 98.0 F 97.9 F 97.9 F Pulse Rate 76 78 78 Respiratory Rate 18 18 18 Blood Pressure 112/47 L 106/50 L 106/50 L Pulse Oximetry 97 99 04/27/18 09:15 04/27/18 09:45 04/27/18 10:21 Temperature 97.9 F 97.9 F Pulse Rate 78 76 Respiratory Rate 18 18 Blood Pressure 106/50 L 121/89 Pulse Oximetry 99 Oxygen Delivery Method Room Air Oxygen Flow Rate 0 Objective Labs Result Diagrams: 04/27/18 05:41 04/27/18 05:41 Labs: Laboratory Results - last 24 hr 04/25/18 04/25/18 04/26/18 13:09 13:09 14:00 WBC 8.4 RBC 2.70 L Hgb 8.5 L Hct 24.8 L MCV 91.9 MCH 31.4 MCHC 34.2 RDW 13.7 Plt Count 219 Neut % (Auto) 61.5 Lymph % (Auto) 29.3 [place] % (Auto) 7.2 Eos % (Auto) 1.6 L Baso % (Auto) 0.4 Neut # (Auto) 5200 Sodium Potassium Chloride Carbon Dioxide BUN Creatinine Estimated GFR BUN/Creatinine Ratio Glucose Calcium Ferritin 15.7 Blood Type A Positive Antibody Screen Negative Crossmatch See Detail 04/26/18 04/26/18 04/27/18 14:00 18:03 05:41 WBC 5.9 RBC 2.56 L Hgb 8.2 L 8.0 L Hct 24.9 L 23.7 L MCV 92.4 MCH 31.4 MCHC 34.0 RDW 13.8 Plt Count 197 Neut % (Auto) 52.5 Lymph % (Auto) 35.0 [place] % (Auto) 7.9 Eos % (Auto) 3.7 Baso % (Auto) 0.9 Neut # (Auto) 3100 Sodium 144 Potassium 4.1 Chloride 111 H Carbon Dioxide 25 BUN 47 H Creatinine 0.80 Estimated GFR > 60.0 BUN/Creatinine Ratio 58.8 H Glucose 93 Calcium 7.9 L Ferritin Blood Type Antibody Screen Crossmatch 04/27/18 05:41 WBC RBC Hgb Hct MCV MCH MCHC RDW Plt Count Neut % (Auto) Lymph % (Auto) [place] % (Auto) Eos % (Auto) Baso % (Auto) Neut # (Auto) Sodium 143 Potassium 4.8 Chloride 115 H Carbon Dioxide 22 BUN 31 H Creatinine 0.80 Estimated GFR > 60.0 BUN/Creatinine Ratio 38.8 H Glucose 80 Calcium 8.0 L Ferritin Blood Type Antibody Screen Crossmatch
[2018-04-27] MEDS: CITALOPRAM 20 MG TABLET 40 MG PO (20:35)
[2018-04-27] MEDS: NORTRIPTYLINE HCL 25 MG CAPSULE 50 MG PO (20:35)
[2018-04-27] MEDS: POLYVINYL ALCOHOL DROPS 1 DROPS EYE-BOTH (20:35)
[2018-04-27] MEDS: LORATADINE 10 MG TABLET PO (20:35)
[2018-04-28] VITALS (19 sets, daily range): BP systolic 117–145; BP diastolic 58–85; PULSE 70–94; RESP 14–18; TEMP 36.4–36.9; O2SAT 91–98
--- NOTE | 2018-04-28 | PATH_ITS ---
[facility] Accession Number: [id number] . 01 Material submitted: . PART A: DUODENUM BIOPSY PART B: ANTRUM BIOPSY . 02 Diagnosis: A. Duodenum, Biopsy: Superficial fragments of duodenal mucosa with no diagnostic abnormality. Negative for active inflammation, features of sprue, dysplasia and malignancy. . B. Stomach, Antrum, Biopsy: Superficial fragments of antral mucosa with no diagnostic abnormality. Negative for intestinal metaplasia. Negative for Helicobacter by immunohistochemistry. Negative for dysplasia and malignancy. [facility]/05/04/2018 . 02 Electronically signed: . Richa Canales MD, Pathologist NPI- [id number] . 01 Gross description: . Part A: DUODENUM BIOPSY: Received in formalin is 1 fragment(s) of resendiz, soft tissue measuring 0.3 x 0.2 x 0.1 cm submitted entirely in 1 cassette(s) Part B: ANTRUM BIOPSY: Received in formalin is 1 fragment(s) of resendiz, soft tissue measuring 0.1 x 0.1 x 0.1 cm submitted entirely in 1 cassette(s) /CKI /CKI . 02 Microscopic: . B. An immunohistochemical stain was performed in order to evaluate for Helicobacter organisms and is negative. The control stain showed appropriate reactivity. . * This test was developed and its performance characteristics determined by [facility]. It has not been cleared or approved by the U.S. Food and Drug Administration. The FDA has determined that such clearance or approval is not necessary. This test is used for clinical purposes. It should not be regarded as investigational or for research. . 02 Pathologist provided ICD-10: R10.9 . 02 CPT . 385760, 139821, H07616 Performed at: [address], [place], [place] [id number] MD Demarcus Monteiro MD Phone: [phone] Performed at: 02 [facility] [address] [place] [id number] MD Richa Canales MD Phone: [phone]
--- NOTE | 2018-04-28 00:31 | PC.NURSE ---
welder 2nd shift 0000: Assumed care of pt with safe hand off. Safety checks done. Pt is a/ox4 and denies pain at this time. Pt reports last melena stool earlier this morning. BP 134/57. Pt sates that it's higher than what it normally is at home. Education done about blood products and BP medication was held earlier in the day. Pt was able to ambulate from bed to bathroom with SBA. Pt tolerated well. Pt informed of NPO status for EGD in AM.
[2018-04-28] MEDS: ACETAMINOPHEN 325 MG TABLET 650 MG PO (06:11)
[2018-04-28] MEDS: KCL 40 MEQ IN NS 1,000 ML 125 MEQ IV (06:11)
[2018-04-28] MEDS: SODIUM CHLORIDE 0.9% FLUSH 10 ML IV ×2 (09:02→21:05)
[2018-04-28 09:32] LABS: Add Manual Diff / Slide Review NO; Basophils Percent Auto 0.6 % (0-2); Eosinophils Percent Auto 3.9 % (2-4); Hematocrit 31.4 % (36-46); Hemoglobin 10.9 g/dL (12.0-16.0); Mean Corpuscular HGB Conc 34.6 % (30-36); Mean Corpuscular Hemoglobin 31.2 PG (26-34); Mean Corpuscular Volume 90.2 fL (80-100); Monocytes Percent Auto 9.3 % (3-14); Neutrophils Absolute Auto 3900 /uL (1500-7000); Neutrophils Percent Auto 56.2 % (50-75); Platelet Count 196 X10^3/uL (150-400); Red Blood Cell Count 3.48 X10^6/uL (4.0-5.2); Red Cell Distribution Width 14.3 % (11.6-14.8); White Blood Cell Count 6.9 X10^3/uL (4.5-11.0)
[2018-04-28 09:59] LABS: BUN Creatinine Ratio 21.4 (6-22); Blood Urea Nitrogen 15 mg/dL (7-17); Calcium 8.3 mg/dL (8.4-10.2); Carbon Dioxide 22 mmol/L (22-32); Chloride 114 mmol/L (98-107); Estimated Glomerular Filt Rate > 60.0 mL/min (>60); Glucose 81 mg/dL (80-110); HEMOLYSIS < 15 (0-50); Potassium 4.9 mmol/L (3.4-5.1); Sodium 140 mmol/L (137-145)
--- NOTE | 2018-04-28 11:03 | PM.OP.1 ---
Operative Date/Time/Diagnoses Date of procedure: 04/28/18 Time of procedure: 11:03 Pre-op diagnosis: Presumed upper GI hemorrhage Post-op diagnosis: same Procedure & Clinicians Procedure: Esophagogastroduodenoscopy with biopsies Same procedure as scheduled: Yes Indications: History of upper GI hemorrhage with recent evidence of recurrent hemorrhage Surgeon: Telma Zuniga Click Yes if Unassisted: Yes Anesthesia Type: General (Dr. Hoover) Operative Notes Findings: 1. Normal appearing duodenum-1st 2nd and 3rd portions 2. Normal-appearing antrum with no evidence of ulcerations 3. Fundus with 1 3 mm telangiectasia noted. No evidence of recent or active hemorrhage 4. No blood or blood products within the stomach or duodenum 5. GE junction at 38 cm from the incisors. Mildly ragged but without evidence of recent or impending hemorrhage. No ulcerations noted. 6. Source of GI hemorrhage is not identified. 7. Consider capsule endoscopy Closure Type: not applicable Specimen(s): other (Cold forceps biopsies of duodenum and antrum) Estimated Blood Loss (mL): 1 Procedure in detail: After obtaining informed consent, the patient was brought to the GI suite and placed in the left lateral decubitus position on the examination table. After placement of appropriate monitors, the patient was given incremental doses of Versed and Fentanyl until an appropriate level of sedation was achieved. A time out was held per SCOAP protocol. A bite block was gently placed between the patient's teeth. The endoscope was lubricated and then passed into the patient's posterior oropharynx. The esophagus was cannulated under direct vision and the scope was passed to the second portion of the duodenum without difficulty. The scope was then withdrawn with careful examination of all areas of the upper GI tract and mucosa. In the stomach, the instrument was retroflexed and the GE junction examined. The scope was straightened and the procedure continued with examination of the remainder of the upper GI tract. Findings are noted above. Air was aspirated from the stomach and the endoscope gently removed from the esophagus. The patient was allowed to awaken from sedation without difficulty and taken to the post-anesthesia care unit in good condition. Complications: none Condition: stable Disposition: PACU Plan for aftercare: 1. Return to bed search for continued convalescence and supportive care 2. Consider capsule endoscopy for further evaluation.
--- NOTE | 2018-04-28 11:19 | PM.PN.1 ---
Subjective Date Patient Seen: 04/28/18 Time Patient Seen: 12:20 Interval history: Briefly talked to patient prior to procedure this morning. She has no acute complaints at this time. Returned and talk to her after her EGD. Tells me that she has no symptoms from her bleeding until she becomes syncopal or notices melena. She has had no further melanotic stools. Denies abdominal pain. Exam Vital Signs (past 8 hours): - 04/28/18 06:00 04/28/18 07:00 04/28/18 07:30 Temperature 97.7 F 97.6 F Pulse Rate 78 76 Respiratory Rate 16 16 Blood Pressure 120/58 L 122/69 Pulse Oximetry 97 97 97 04/28/18 10:26 04/28/18 11:11 Temperature 97.5 F L 98.1 F Pulse Rate 75 94 H Respiratory Rate 16 17 Blood Pressure 121/64 145/66 H Pulse Oximetry 97 91 Oxygen Delivery Method Room Air Oxygen Flow Rate 0 Narrative Exam Narrative: General: Well-developed, well-nourished, female, no acute distress. Heart: Regular rate and rhythm, no murmurs appreciated Lungs: Clear to auscultation bilaterally, no wheezes, rales or rhonchi Extremities: Warm and well perfused, no edema Objective Labs Result Diagrams: 04/28/18 09:15 04/28/18 09:15 Labs: Laboratory Results - last 24 hr 04/25/18 04/27/18 04/28/18 13:09 19:57 09:15 WBC 6.9 RBC 3.48 L Hgb 10.9 L Hct 31.4 L MCV 90.2 MCH 31.2 MCHC 34.6 RDW 14.3 Plt Count 196 Neut % (Auto) 56.2 Lymph % (Auto) 30.0 [place] % (Auto) 9.3 Eos % (Auto) 3.9 Baso % (Auto) 0.6 Neut # (Auto) 3900 Sodium Potassium Chloride Carbon Dioxide BUN Creatinine Estimated GFR BUN/Creatinine Ratio Glucose Calcium Blood Type A Positive A Positive Antibody Screen Negative Negative Crossmatch See Detail 04/28/18 09:15 WBC RBC Hgb Hct MCV MCH MCHC RDW Plt Count Neut % (Auto) Lymph % (Auto) [place] % (Auto) Eos % (Auto) Baso % (Auto) Neut # (Auto) Sodium 140 Potassium 4.9 Chloride 114 H Carbon Dioxide 22 BUN 15 Creatinine 0.70 Estimated GFR > 60.0 BUN/Creatinine Ratio 21.4 Glucose 81 Calcium 8.3 L Blood Type Antibody Screen Crossmatch Assessment & Plan Plan: Assessment/Plan Narrative: 72-year-old female with syncopal episode from upper GI bleed and dehydration. 1. Upper GI bleed. EGD this morning with Dr. Zuniga. No source of bleeding found. Recommend capsule endoscopy which we do not do here. Will monitor her her H&H overnight. Would transfer should she have an acute drop for further workup. Continue with Protonix. 2. Acute blood loss anemia from 1. Above. Will repeat an H and H in 12 hr to determine if she continues to bleed. She had a normal response to transfusion of 2 units yesterday. 3. Increased BUN resolved with hydration. 4. Hypertension. Was hypotensive prior to transfusion. Have continued patient's home dose of atenolol. Will continue to monitor prior to restarting her hydrochlorothiazide. 5. Anxiety. Continue home medications. Code status: Full code DVT prophylaxis: SCDs. If patients hemoglobin remained stable overnight will discharge tomorrow to have further workup as an outpatient. Should she continue with bleeding overnight we would attempt transfer to [facility] for further care.
[2018-04-28] MEDS: PANTOPRAZOLE 40 MG VIAL IV ×2 (11:53→23:43)
[2018-04-28 20:28] LABS: Hematocrit 31.3 % (36-46); Hemoglobin 10.8 g/dL (12.0-16.0)
[2018-04-28] MEDS: CITALOPRAM 20 MG TABLET 40 MG PO (21:05)
[2018-04-28] MEDS: NORTRIPTYLINE HCL 25 MG CAPSULE 50 MG PO (21:06)
[2018-04-28] MEDS: ATENOLOL 25 MG TABLET PO (21:06)
[2018-04-28] MEDS: LORATADINE 10 MG TABLET PO (21:06)
[2018-04-29 05:45] VITALS: BP 109/50; PULSE 63; RESP 16; TEMP 36.7; O2SAT 99
[2018-04-29 05:57] LABS: Add Manual Diff / Slide Review NO; Basophils Percent Auto 0.8 % (0-2); Eosinophils Percent Auto 4.4 % (2-4); Hematocrit 33.5 % (36-46); Hemoglobin 11.6 g/dL (12.0-16.0); Lymphocytes Percent Auto 32.6 % (25-40); Mean Corpuscular HGB Conc 34.6 % (30-36); Mean Corpuscular Hemoglobin 31.6 PG (26-34); Mean Corpuscular Volume 91.1 fL (80-100); Monocytes Percent Auto 7.6 % (3-14); Neutrophils Absolute Auto 4300 /uL (1500-7000); Neutrophils Percent Auto 54.6 % (50-75); Platelet Count 212 X10^3/uL (150-400); Red Blood Cell Count 3.67 X10^6/uL (4.0-5.2); Red Cell Distribution Width 14.3 % (11.6-14.8); White Blood Cell Count 7.9 X10^3/uL (4.5-11.0)
[2018-04-29 06:07] LABS: BUN Creatinine Ratio 16.3 (6-22); Blood Urea Nitrogen 13 mg/dL (7-17); Calcium 8.6 mg/dL (8.4-10.2); Carbon Dioxide 27 mmol/L (22-32); Chloride 108 mmol/L (98-107); Estimated Glomerular Filt Rate > 60.0 mL/min (>60); Glucose 82 mg/dL (80-110); HEMOLYSIS < 15 (0-50); Potassium 4.4 mmol/L (3.4-5.1); Sodium 140 mmol/L (137-145)
[2018-04-29 07:00] VITALS: BP 126/69; PULSE 65; RESP 18; TEMP 36.6; O2SAT 98
[2018-04-29] MEDS: BECLOMETHASONE 40 MCG INH 10.6 GM 2 PUFF INH (08:46)
[2018-04-29] MEDS: POLYVINYL ALCOHOL DROPS 1 DROPS EYE-BOTH (08:46)
--- NOTE | 2018-04-29 09:33 | PM.DS.1 ---
History of Present Illness Chief complaint: PASSED OUT AN HOUR AGO Narrative: Patient is a 72-year-old female who follows with Dr. Babin here today with her because of the syncopal episode earlier today. She has a history of a GI bleed in the past year requiring 4 units of blood. Her blood pressures at home and on presentation were systolic in the 80s. She was given fluids in the emergency department and her blood pressures have improved and she is feeling much better. Tells me for the last few days she has been feeling more fatigued than normal. She tells me that last week she had a stool that smelled like melena. However she has not had any stools that looked like melena. She has a history constipation predominant IBS. She also tells me that yesterday afternoon she had an episode of a looser stool with some urgency so she took some antidiarrheal medications. Physician in the ED was unable to get stool on rectal exam. She has no pain type complaints. She does occasionally get abdominal distension but does not have that now. Discharge Providers Date of admission: 04/25/18 16:03 Primary care physician: Vipul Babin MD Consults: 04/25/18 19:24 Consult to General Surgery Routine Comment: Consulting Provider: Telma Zuniga Reason for consultation: upper GI bleed Has provider been notified: Yes Consult to Physician Stat Comment: Consulting Provider: Yocasta Mcdonnell Reason for consultation: upper GI bleed Has provider been notified: Yes Discharge provider: Yocasta Mcdonnell DO Discharge Date: 04/29/18 Summary Discharge Diagnosis: Syncope from hypotension GI bleed, unknown etiology, likely upper Acute blood loss anemia Hypotension Hypertension Anxiety Hospital Course: [address] [address] Progress Note Patient: Rosy Nieves MR#: [id number] : 1945 Acct:[id number] Age/Sex: 72 / F Date of Service: 04/25/18 Provider: Yocasta Mcdonnell D.O. Subjective Date Patient Seen: 04/28/18 Time Patient Seen: 12:20 Interval history: Briefly talked to patient prior to procedure this morning. She has no acute complaints at this time. Returned and talk to her after her EGD. Tells me that she has no symptoms from her bleeding until she becomes syncopal or notices melena. She has had no further melanotic stools. Denies abdominal pain. Exam Vital Signs (past 8 hours): - 04/28/18 06:00 04/28/18 07:00 04/28/18 07:30 Temperature 97.7 F 97.6 F Pulse Rate 78 76 Respiratory Rate 16 16 Blood Pressure 120/58 L 122/69 Pulse Oximetry 97 97 97 04/28/18 10:26 04/28/18 11:11 Temperature 97.5 F L 98.1 F Pulse Rate 75 94 H Respiratory Rate 16 17 Blood Pressure 121/64 145/66 H Pulse Oximetry 97 91 Oxygen Delivery Method Room Air Oxygen Flow Rate 0 Narrative Exam Narrative: General: Well-developed, well-nourished, female, no acute distress. Heart: Regular rate and rhythm, no murmurs appreciated Lungs: Clear to auscultation bilaterally, no wheezes, rales or rhonchi Extremities: Warm and well perfused, no edema Objective Labs Result Diagrams: 04/28/18 09:15 document embedded image 04/28/18 09:15 document embedded image Labs: Laboratory Results - last 24 hr 04/25/18 04/27/18 04/28/18 13:09 19:57 09:15 WBC 6.9 RBC 3.48 L Hgb 10.9 L Hct 31.4 L MCV 90.2 MCH 31.2 MCHC 34.6 RDW 14.3 Plt Count 196 Neut % (Auto) 56.2 Lymph % (Auto) 30.0 [place] % (Auto) 9.3 Eos % (Auto) 3.9 Baso % (Auto) 0.6 Neut # (Auto) 3900 Sodium Potassium Chloride Carbon Dioxide BUN Creatinine Estimated GFR BUN/Creatinine Ratio Glucose Calcium Blood Type A Positive A Positive Antibody Screen Negative Negative Crossmatch See Detail 04/28/18 09:15 WBC RBC Hgb Hct MCV MCH MCHC RDW Plt Count Neut % (Auto) Lymph % (Auto) [place] % (Auto) Eos % (Auto) Baso % (Auto) Neut # (Auto) Sodium 140 Potassium 4.9 Chloride 114 H Carbon Dioxide 22 BUN 15 Creatinine 0.70 Estimated GFR > 60.0 BUN/Creatinine Ratio 21.4 Glucose 81 Calcium 8.3 L Blood Type Antibody Screen Crossmatch Assessment & Plan 72-year-old female with syncopal episode from upper GI bleed and dehydration. 1. Upper GI bleed. EGD did not reveal source, capsule endoscopy recommended. No further bleeding. Will continue workup outpatient. If she rebleeds would transfer to higher level of care for further workup. 2. Acute blood loss anemia from 1. Above. H&H stable after transfusion of 2 units yesterday. 3. Increased BUN resolved with hydration. 4. Hypertension. Was hypotensive prior to transfusion. Continued patient's home dose of atenolol. Remained normotensive so hctz was held. Will continue with hold at discharge. 5. Anxiety. Continued home medications. Code status: Full code DVT prophylaxis: SCDs secondary to bleed. Status at Discharge Cognitive/behavioral status at discharge: Normal Functional status at discharge: independent ambulation Overall status at discharge: patient is back to baseline Time Spent with Patient Less than 30 minutes Exam Vital Signs (past 8 hours): - 04/29/18 05:45 04/29/18 07:00 Temperature 98.0 F 97.8 F Pulse Rate 63 65 Respiratory Rate 16 18 Blood Pressure 109/50 L 126/69 Pulse Oximetry 99 98 Oxygen Delivery Method Room Air Oxygen Flow Rate 0 Narrative Exam Narrative: General: Well-developed, well-nourished, female, no acute distress. Heart: Regular rate and rhythm, no murmurs appreciated Lungs: Clear to auscultation bilaterally, no wheezes, rales or rhonchi Abd: BS+, soft, nontender, nondistended, no rebound, no guarding Extremities: Warm and well perfused, no edema Objective Labs Result Diagrams: 04/29/18 05:38 04/29/18 05:38 Labs: Laboratory Results - last 24 hr 04/28/18 04/28/18 04/28/18 09:15 09:15 20:00 WBC 6.9 RBC 3.48 L Hgb 10.9 L 10.8 L Hct 31.4 L 31.3 L MCV 90.2 MCH 31.2 MCHC 34.6 RDW 14.3 Plt Count 196 Neut % (Auto) 56.2 Lymph % (Auto) 30.0 [place] % (Auto) 9.3 Eos % (Auto) 3.9 Baso % (Auto) 0.6 Neut # (Auto) 3900 Sodium 140 Potassium 4.9 Chloride 114 H Carbon Dioxide 22 BUN 15 Creatinine 0.70 Estimated GFR > 60.0 BUN/Creatinine Ratio 21.4 Glucose 81 Calcium 8.3 L 04/29/18 04/29/18 05:38 05:38 WBC 7.9 RBC 3.67 L Hgb 11.6 L Hct 33.5 L MCV 91.1 MCH 31.6 MCHC 34.6 RDW 14.3 Plt Count 212 Neut % (Auto) 54.6 Lymph % (Auto) 32.6 [place] % (Auto) 7.6 Eos % (Auto) 4.4 H Baso % (Auto) 0.8 Neut # (Auto) 4300 Sodium 140 Potassium 4.4 Chloride 108 H Carbon Dioxide 27 BUN 13 Creatinine 0.80 Estimated GFR > 60.0 BUN/Creatinine Ratio 16.3 Glucose 82 Calcium 8.6 Discharge Plan Discharge Plan Discharge Problem: Acute upper gastrointestinal bleeding Patient Disposition: Home Discharge Med Rec/Prescriptions Prescriptions: Continue lactase 3,000 unit Tablet 250 mg PO TIDWM Qty: 0 RF: 0 loratadine [Claritin] 10 MG tablet 10 mg PO QDAY Qty: 0 RF: 0 CARBOXYMETHYLCELL/HYPROMELLOSE (Genteal Gel Drops) 1 jose OU BID Qty: 0 RF: 0 [ULTRA-ZYME] 325 mg TIDWM Qty: 0 RF: 0 [PRO-BIOTIC] 2 cap PO QDAY Qty: 0 RF: 0 rizatriptan [Maxalt] 10 MG tablet 10 mg PO SEE INSTRUCTIONS Qty: 12 RF: 11 atenolol 25 mg tablet 25 mg PO QDAY Qty: 90 RF: 3 nortriptyline [Pamelor] 50 mg capsule 50 mg PO HS Qty: 90 RF: 0 ezetimibe [Zetia] 10 mg tablet 10 mg PO Q DAY Qty: 90 RF: 0 esomeprazole magnesium [Nexium] 40 mg capsule,delayed release(DR/EC) 40 mg PO QDAY Qty: 90 RF: 0 calcitonin (salmon) 200 unit/actuation spray,non-aerosol 1 spray Intranasal (ALT) DAILY Qty: 3.7 RF: 0 ProAir HFA 2 puff Inhalation PRN PRN (Reason: Shortness Of Breath) RF: 0 cyclobenzaprine 10 MG tablet 5 - 10 mg PO PRN PRN (Reason: Pain (Scale Score 4-6)) RF: 0 fluconazole [Diflucan] 150 MG tablet 150 mg PO X1 PRN (Reason: Vaginal Irritation) RF: 0 alprazolam 0.25 mg tablet 0.5 - 1 tab PO PRN PRN (Reason: Anxiety) RF: 0 epinephrine [EpiPen 2-Shen] 0.3 MG/0.3 ML auto-injector 0.3 mg IM SEE INSTRUCTIONS PRN (Reason: Allergic Reaction) RF: 0 acetaminophen [Tylenol] 325 mg Tablet 650 mg PO Q6H PRN (Reason: Pain (Scale Score 1-3)) RF: 0 citalopram 40 mg Tablet 40 mg PO DAILY RF: 0 diphenhydramine HCl [Benadryl] 25 mg Capsule 50 mg PO Q6-8H PRN (Reason: Allergic Symptoms) RF: 0 beclomethasone dipropionate [Qvar RediHaler] 40 mcg/actuation Hfa Aerosol Breath Activated 2 puff INHALATION BID RF: 0 clotrimazole-betameth dip-zinc 1 appful Topical BID PRN (Reason: Skin Irritation) RF: 0 Discontinued aspirin 81 MG tablet,delayed release (DR/EC) 81 mg PO QDAY Qty: 0 RF: 0 hydrochlorothiazide 25 mg tablet 25 mg PO QDAY Qty: 90 RF: 0 Follow up/Referrals: Vipul Babin MD [Primary Care Provider] - 3-5 Days Comfort Alexander MD [Physician] - 3-5 Days (Capsule endoscopy) Provider Discharge Instructions Diet: Diet as Tolerated Activity: As tolerated Skin/Wound/Dressing Care Report to your healthcare provider any signs of infection, such as:: chills, fever and increased pain Discharge Data Primary Care Provider: Vipul Babin Attending Provider: Yocasta Mcdonnell Admit Date/Time: 04/25/18 16:03
[2018-04-29 11:24] VITALS: PULSE 65; RESP 18; O2SAT 98
== END 2018-04-29 10:14 | disposition home or self-care (01) | DRG 378 ==
LOC: ED 15:12 → AC 04-26 07:29
PROVIDERS: Surgery; Admitting Provider Family Medicine; Emergency Provider Emergency Medicine; Family Provider Family Medicine; PCP Family Medicine; Visit Provider Family Medicine
PROC: 0DJ08ZZ Inspection of Upper Intestinal Tract, Via Natural or Artificial Opening Endoscopic (ICD-10-PCS; CPT 43235; principal; 2018-04-28 09:30)
DX: K92.1 Melena (principal); D62 Acute posthemorrhagic anemia; I10 Essential (primary) hypertension; E86.0 Dehydration; F41.9 Anxiety disorder, unspecified; I95.9 Hypotension, unspecified
CPT/HCPCS: 36415; 36430; 36591; 43239; 80048; 80053; 82728; 83540; 83550; 83605; 85014; 85018; 85025; 85610; 85730; 86850; 86900; 86901; 93005; 94760; 96361; 96374; 96375; 99222; 99223; 99231; 99232; 99233; 99238; 99283; P9016; C9113; J2250; J2405; J3010; J3480

== ENCOUNTER → 2018-04-30 08:39 | Outpatient (CLI) | payer OTHER, SELFPAY ==
[2018-04-25 17:22] VITALS: BMI 24.9
[2018-04-30 10:31] LABS: Add Manual Diff / Slide Review NO; Basophils Percent Auto 0.9 % (0-2); Eosinophils Percent Auto 3.1 % (2-4); Hematocrit 33.9 % (36-46); Hemoglobin 11.4 g/dL (12.0-16.0); Lymphocytes Percent Auto 26.3 % (25-40); Mean Corpuscular HGB Conc 33.6 % (30-36); Mean Corpuscular Hemoglobin 30.9 PG (26-34); Mean Corpuscular Volume 91.8 fL (80-100); Monocytes Percent Auto 8.4 % (3-14); Neutrophils Absolute Auto 4100 /uL (1500-7000); Neutrophils Percent Auto 61.3 % (50-75); Platelet Count 255 X10^3/uL (150-400); Red Blood Cell Count 3.69 X10^6/uL (4.0-5.2); Red Cell Distribution Width 14.4 % (11.6-14.8); White Blood Cell Count 6.7 X10^3/uL (4.5-11.0)
[2018-04-30 10:45] LABS: Alanine Aminotransferase 22 IU/L (9-52); Albumin 3.3 g/dL (3.5-5.0); Albumin Globulin Ratio 1.4 (1.0-2.8); Alkaline Phosphatase 68 U/L (38-126); Aspartate Aminotransferase 23 IU/L (14-36); Bilirubin Total 0.3 mg/dL (0.2-1.3); Blood Urea Nitrogen 23 mg/dL (7-17); Calcium 8.6 mg/dL (8.4-10.2); Carbon Dioxide 28 mmol/L (22-32); Chloride 106 mmol/L (98-107); Cholesterol 142 mg/dL (140-199); Estimated Glomerular Filt Rate 54.8 mL/min (>60); Globulin 2.3 g/dL (1.7-4.1); Glucose 90 mg/dL (80-110); HDL Cholesterol 54 mg/dL (40-60); HEMOLYSIS < 15 (0-50); LDL Cholesterol Calculated 74 mg/dL (<100); Potassium 4.3 mmol/L (3.4-5.1); Sodium 141 mmol/L (137-145); Total Protein 5.6 g/dL (6.3-8.2); Triglycerides 70 mg/dL (35-150)
[2018-04-30 11:13] LABS: Ferritin 15.9 ng/mL (11.1-264)
[2018-04-30 11:30] LABS: Thyroid Stimulating Hormone 0.68 uIU/mL (0.47-4.68)
== END ==
PROVIDERS: Family Provider Family Medicine; PCP Family Medicine; Visit Provider Family Medicine
DX: D64.9 Anemia, unspecified (principal); E78.5 Hyperlipidemia, unspecified; Z98.890 Other specified postprocedural states
CPT/HCPCS: 36415; 80053; 80061; 82728; 84443; 85025

== ENCOUNTER → 2018-05-07 08:20 | Outpatient (CLI) | payer OTHER, SELFPAY ==
[2018-04-25 17:22] VITALS: BMI 24.9
[2018-05-07 08:43] LABS: Hematocrit 36.5 % (36-46); Hemoglobin 12.1 g/dL (12.0-16.0)
== END ==
PROVIDERS: Family Provider Family Medicine; PCP Family Medicine; Visit Provider Family Medicine
DX: D64.9 Anemia, unspecified (principal)
CPT/HCPCS: 36415; 85014; 85018

== ENCOUNTER → 2018-05-14 08:20 | Outpatient (CLI) | payer OTHER, SELFPAY ==
[2018-04-25 17:22] VITALS: BMI 24.9
[2018-05-14 08:58] LABS: Add Manual Diff / Slide Review NO; Basophils Absolute Auto 0 /uL (0-100); Basophils Percent Auto 0.3 % (0-2); Eosinophils Absolute Auto 200 /uL (0-450); Eosinophils Percent Auto 2.1 % (2-4); Hematocrit 38.7 % (36-46); Hemoglobin 12.6 g/dL (12.0-16.0); Lymphocytes Absolute Auto 2200 /uL (1100-4500); Mean Corpuscular HGB Conc 32.6 % (30-36); Mean Corpuscular Hemoglobin 30.3 PG (26-34); Mean Corpuscular Volume 92.9 fL (80-100); Monocytes Absolute Auto 800 /uL (0-900); Monocytes Percent Auto 9.3 % (3-14); Neutrophils Absolute Auto 5800 /uL (1500-7000); Neutrophils Percent Auto 64.3 % (50-75); Platelet Count 365 X10^3/uL (150-400); Red Blood Cell Count 4.16 X10^6/uL (4.0-5.2); Red Cell Distribution Width 14.3 % (11.6-14.8)
== END ==
PROVIDERS: Family Provider Family Medicine; PCP Family Medicine; Visit Provider Family Medicine
DX: K92.2 Gastrointestinal hemorrhage, unspecified (principal)
CPT/HCPCS: 36415; 85025

== ENCOUNTER → 2018-05-21 08:37 | Outpatient (CLI) | payer OTHER, SELFPAY ==
[2018-04-25 17:22] VITALS: BMI 24.9
[2018-05-21 09:24] LABS: Hematocrit 36.9 % (36-46); Hemoglobin 12.1 g/dL (12.0-16.0)
== END ==
PROVIDERS: Family Provider Family Medicine; PCP Family Medicine; Visit Provider Family Medicine
DX: D64.9 Anemia, unspecified (principal)
CPT/HCPCS: 36415; 85014; 85018

== ENCOUNTER → 2018-05-28 08:32 | Outpatient (CLI) | payer OTHER, SELFPAY ==
[2018-04-25 17:22] VITALS: BMI 24.9
[2018-05-28 09:08] LABS: Add Manual Diff / Slide Review NO; Basophils Absolute Auto 100 /uL (0-100); Basophils Percent Auto 0.9 % (0-2); Eosinophils Absolute Auto 200 /uL (0-450); Eosinophils Percent Auto 3.3 % (2-4); Hematocrit 38.7 % (36-46); Hemoglobin 12.9 g/dL (12.0-16.0); Lymphocytes Absolute Auto 2300 /uL (1100-4500); Mean Corpuscular HGB Conc 33.3 % (30-36); Mean Corpuscular Hemoglobin 30.5 PG (26-34); Mean Corpuscular Volume 91.5 fL (80-100); Monocytes Absolute Auto 500 /uL (0-900); Monocytes Percent Auto 7.4 % (3-14); Neutrophils Absolute Auto 3400 /uL (1500-7000); Neutrophils Percent Auto 52.4 % (50-75); Platelet Count 301 X10^3/uL (150-400); Red Blood Cell Count 4.23 X10^6/uL (4.0-5.2); White Blood Cell Count 6.4 X10^3/uL (4.5-11.0)
[2018-05-28 10:08] LABS: Hep C Virus Ab w/Reflex Quant NEGATIVE s/c (NEGATIVE)
== END ==
PROVIDERS: Family Provider Family Medicine; PCP Family Medicine; Visit Provider Family Medicine
DX: D64.9 Anemia, unspecified (principal)
CPT/HCPCS: 36415; 85014; 85018; 85025; 86803

== ENCOUNTER → 2018-06-04 08:36 | Outpatient (CLI) | payer OTHER, SELFPAY ==
[2018-04-25 17:22] VITALS: BMI 24.9
[2018-06-04 09:15] LABS: Hematocrit 38.8 % (36-46); Hemoglobin 12.7 g/dL (12.0-16.0)
[2018-06-04 09:27] LABS: HEMOLYSIS < 15 (0-50); Iron 60 ug/dL (37-170)
[2018-06-04 09:38] LABS: Percent Iron Saturation 16 % (15-50); Total Iron Binding Capacity 364 ug/dL (265-497); Transferrin 284 mg/dL (206-381)
== END ==
PROVIDERS: PCP Family Medicine; Visit Provider Family Medicine
DX: D64.9 Anemia, unspecified (principal); K92.2 Gastrointestinal hemorrhage, unspecified
CPT/HCPCS: 36415; 83540; 83550; 85014; 85018

== ENCOUNTER → 2018-07-16 10:07 | Outpatient (CLI) | payer OTHER, SELFPAY ==
[2018-04-25 17:22] VITALS: BMI 24.9
[2018-07-16 10:58] LABS: Hematocrit 40.8 % (36-46); Hemoglobin 13.3 g/dL (12.0-16.0)
[2018-07-16 11:19] LABS: HEMOLYSIS < 15 (0-50); Iron 81 ug/dL (37-170)
[2018-07-16 11:29] LABS: Percent Iron Saturation 25 % (15-50); Total Iron Binding Capacity 330 ug/dL (265-497); Transferrin 260 mg/dL (206-381)
== END ==
PROVIDERS: PCP Family Medicine; Visit Provider Family Medicine
DX: D64.9 Anemia, unspecified (principal); K92.2 Gastrointestinal hemorrhage, unspecified
CPT/HCPCS: 36415; 83540; 83550; 85014; 85018

== ENCOUNTER → 2018-07-26 16:49 | Outpatient (CLI) | payer OTHER, SELFPAY ==
[2018-04-25 17:22] VITALS: BMI 24.9
[2018-07-26 17:34] LABS: Add Manual Diff / Slide Review NO; Basophils Absolute Auto 0 /uL (0-100); Basophils Percent Auto 0.4 % (0-2); Eosinophils Absolute Auto 100 /uL (0-450); Eosinophils Percent Auto 1.4 % (2-4); Hemoglobin 14.1 g/dL (12.0-16.0); Lymphocytes Absolute Auto 2400 /uL (1100-4500); Lymphocytes Percent Auto 27.8 % (25-40); Mean Corpuscular HGB Conc 32.8 % (30-36); Mean Corpuscular Hemoglobin 30.2 PG (26-34); Mean Corpuscular Volume 92.2 fL (80-100); Monocytes Absolute Auto 600 /uL (0-900); Monocytes Percent Auto 7.4 % (3-14); Neutrophils Absolute Auto 5500 /uL (1500-7000); Platelet Count 316 X10^3/uL (150-400); Red Blood Cell Count 4.66 X10^6/uL (4.0-5.2); Red Cell Distribution Width 14.5 % (11.6-14.8); White Blood Cell Count 8.8 X10^3/uL (4.5-11.0)
[2018-07-26 18:11] LABS: Erythrocyte Sedimentation Rate 5 MM/HR (0-20)
[2018-07-26 18:40] LABS: C-Reactive Protein Quant < 0.5 mg/dL (<1.0); Rheumatoid Factor < 8.6 IU/mL (<12.0)
[2018-07-26 18:51] LABS: Vitamin D 25 Hydroxy (D3) 39.6 ng/mL (30.0-100.0)
[2018-07-26 19:06] LABS: Thyroid Stimulating Hormone 0.52 uIU/mL (0.47-4.68)
[2018-07-28 11:31] LABS: CCP Antibody (IgG) < 16 Units (< 20)
[2018-07-28 15:46] LABS: ANA Pattern Nucleolar; ANA Screen, IFA Positive (Negative); ANA Titer 1:40 titer (<1:40)
== END ==
PROVIDERS: PCP Family Medicine; Visit Provider Family Medicine
DX: I77.6 Arteritis, unspecified (principal)
CPT/HCPCS: 36415; 82306; 83516; 84443; 85025; 85651; 86038; 86140; 86430

== ENCOUNTER → 2018-08-03 08:39 | Outpatient (CLI) | payer OTHER, SELFPAY ==
[2018-04-25 17:22] VITALS: BMI 24.9
[2018-08-03 10:10] LABS: BUN Creatinine Ratio 31.1 (6-22); Blood Urea Nitrogen 28 mg/dL (7-17); Estimated Glomerular Filt Rate > 60.0 mL/min (>60)
--- NOTE | 2018-08-03 10:11 | DI.RAD.S_ITS ---
This blank DEXA report has been sent in error by the PACS system. The correct and complete report will be forthcoming in 1-2 days. Thank you for your patience and understanding. Dictated by: Hair Pierre M.D. on 08/03/2018 at 12:47 Approved by: Hair Pierre M.D. on 08/03/2018 at 12:49
--- NOTE | 2018-08-03 10:16 | DI.CT.S_ITS ---
PROCEDURE: CT ABDOMEN WO/W CON INDICATIONS: liver hemanigoma TECHNIQUE: 4 phase scanning was performed. Non-contrast 5 mm axial sections acquired from the diaphragm to the iliac crests. Following the administration of intravenous contrast, 5 mm thick arterial-phase, portal venous-phase, and 5-minute delayed phase images were acquired through the liver. 5 mm thick coronal and sagittal reformats were performed. For radiation dose reduction, the following was used: automated exposure control, adjustment of mA and/or kV according to patient size. COMPARISON: Located Within [facility], CT, ABDOMEN/PELVIS WITH CONTRAST, 05/08/2014, 8:55. Located Within [facility], CT, ANGIOGRAPHY ABDOMEN AND PELVIS, 03/02/2016, 15:34. FINDINGS: Image quality: Excellent. Lung bases: Lung bases are clear. Heart size is normal. Liver: Examination of liver shows 1.4 x 1.4 x 1.2 cm hypodense area involving anterior superior left hepatic lobe medial segment and shows peripheral nodular contrast enhancement during arterial phase of the scan and near complete filling of this structure during portal venous phase. There is persistent contrast opacification of this area during delayed phase of the scan. No other area of abnormal contrast enhancement is seen. Portal veins and splenic vein are patent. Hepatic arteries and veins are patent. Other solid organs: Gallbladder is surgically absent. Biliary system is non dilated. Pancreas is normal in morphology. Spleen is normal in size and enhancement. No adrenal nodules. Both kidneys demonstrate normal size and enhancement, without hydronephrosis or nephrolithiasis. Nodes and vessels: No retroperitoneal or mesenteric adenopathy by size criteria. Aorta and inferior vena cava are normal in size. Bowel and peritoneum: There is a small hiatal hernia Unenhanced bowel loops are normal in caliber. No free fluid or air. Mild fecal stasis in the colon is seen. Bones: No suspicious bony lesions. No vertebral body compression fractures. Miscellaneous: No ventral hernias. IMPRESSION: 1. 1.4 x 1.4 x 1.2 cm hypodense lesion involving superior anterior periphery of the left hepatic lobe as described above. The contrast enhancing characteristics are suggestive of this being a benign hemangioma. Followup CT or MRI examination in 12 months is recommended for evaluation of stability. No other discrete hepatic lesion is seen. 2. Prior cholecystectomy. No biliary ductal dilatation. 3. Small hiatal hernia and mild constipation. No bowel obstruction. No free fluid or free air. Dictated by: Hair Pierre M.D. on 08/03/2018 at 12:35 Approved by: Hair Pierre M.D. on 08/03/2018 at 12:47
== END ==
PROVIDERS: PCP Family Medicine; Visit Provider Family Medicine
DX: Z01.812 Encounter for preprocedural laboratory examination (principal); D18.03 Hemangioma of intra-abdominal structures; M81.0 Age-related osteoporosis without current pathological fracture; Z78.0 Asymptomatic menopausal state; K44.9 Diaphragmatic hernia without obstruction or gangrene; K59.00 Constipation, unspecified; Z85.3 Personal history of malignant neoplasm of breast; Z82.62 Family history of osteoporosis; Z90.49 Acquired absence of other specified parts of digestive tract
CPT/HCPCS: 36415; 74170; 77080; 82565; 84520; Q9967

== ENCOUNTER → 2018-10-12 08:39 | Outpatient (CLI) | payer OTHER, SELFPAY ==
[2018-04-25 17:22] VITALS: BMI 24.9
[2018-10-12 09:02] LABS: Hematocrit 39.6 % (36-46); Hemoglobin 13.3 g/dL (12.0-16.0)
[2018-10-12 10:04] LABS: Ferritin 25.4 ng/mL (11.1-264)
[2018-10-12 10:30] LABS: HEMOLYSIS < 15 (0-50); Iron 134 ug/dL (37-170)
[2018-10-12 10:40] LABS: Percent Iron Saturation 40 % (15-50); Total Iron Binding Capacity 331 ug/dL (265-497); Transferrin 276 mg/dL (206-381)
== END ==
PROVIDERS: PCP Family Medicine; Visit Provider Family Medicine
DX: D62 Acute posthemorrhagic anemia (principal); D64.9 Anemia, unspecified; K92.2 Gastrointestinal hemorrhage, unspecified; R55 Syncope and collapse
CPT/HCPCS: 36415; 82728; 83540; 83550; 85014; 85018

== ENCOUNTER → 2018-11-16 08:27 | Outpatient (CLI) | payer OTHER, SELFPAY ==
[2018-04-25 17:22] VITALS: BMI 24.9
[2018-11-16 09:24] LABS: BUN Creatinine Ratio 25.6 (6-22); Blood Urea Nitrogen 23 mg/dL (7-17); Estimated Glomerular Filt Rate > 60.0 mL/min (>60)
== END ==
PROVIDERS: PCP Family Medicine; Visit Provider Family Medicine
DX: Z01.812 Encounter for preprocedural laboratory examination (principal)
CPT/HCPCS: 36415; 82565; 84520

== ENCOUNTER → 2019-01-02 08:29 | Outpatient (CLI) | payer OTHER, SELFPAY ==
[2018-04-25 17:22] VITALS: BMI 24.9
[2019-01-02 08:55] LABS: Add Manual Diff / Slide Review NO; Basophils Absolute Auto 100 /uL (0-100); Eosinophils Absolute Auto 200 /uL (0-450); Eosinophils Percent Auto 2.5 % (2-4); Hematocrit 40.6 % (36-46); Hemoglobin 13.6 g/dL (12.0-16.0); Lymphocytes Absolute Auto 2700 /uL (1100-4500); Mean Corpuscular HGB Conc 33.5 % (30-36); Mean Corpuscular Hemoglobin 30.9 PG (26-34); Mean Corpuscular Volume 92.2 fL (80-100); Monocytes Absolute Auto 700 /uL (0-900); Monocytes Percent Auto 9.7 % (3-14); Neutrophils Absolute Auto 3500 /uL (1500-7000); Neutrophils Percent Auto 48.8 % (50-75); Platelet Count 292 X10^3/uL (150-400); Red Cell Distribution Width 13.1 % (11.6-14.8); White Blood Cell Count 7.2 X10^3/uL (4.5-11.0)
[2019-01-02 09:04] LABS: HEMOLYSIS < 15 (0-50); Iron 113 ug/dL (37-170)
[2019-01-02 09:15] LABS: Percent Iron Saturation 36 % (15-50); Total Iron Binding Capacity 316 ug/dL (265-497); Transferrin 265 mg/dL (206-381)
[2019-01-02 09:35] LABS: Ferritin 20.8 ng/mL (11.1-264)
== END ==
PROVIDERS: Family Provider Family Medicine; PCP Family Medicine; Visit Provider Physician Assistant
DX: D50.0 Iron deficiency anemia secondary to blood loss (chronic) (principal)
CPT/HCPCS: 36415; 82728; 83540; 83550; 85025

== ENCOUNTER → 2019-01-30 11:11 | Outpatient (CLI) | payer OTHER, SELFPAY ==
[2018-04-25 17:22] VITALS: BMI 24.9
[2019-01-30 11:41] LABS: Blood Urea Nitrogen 27 mg/dL (7-17); Estimated Glomerular Filt Rate 54.7 mL/min (>60)
[2019-02-03 21:09] LABS: (tTG) Ab, IgA < 1 U/mL
== END ==
PROVIDERS: PCP Family Medicine; Visit Provider Physician Assistant
DX: R93.5 Abnormal findings on diagnostic imaging of other abdominal regions, including retroperitoneum (principal); R94.5 Abnormal results of liver function studies; K90.41 Non-celiac gluten sensitivity
CPT/HCPCS: 36415; 82565; 82784; 83516; 84520; 86255

== ENCOUNTER → 2019-04-09 11:07 | Outpatient (CLI) | payer OTHER, SELFPAY ==
[2018-04-25 17:22] VITALS: BMI 24.9
--- NOTE | 2019-04-09 | DI.MG.S_ITS ---
BILATERAL DIGITAL SCREENING MAMMOGRAM 3D/2D WITH CAD POST LUMPECTOMY: 04/09/2019 CLINICAL: Routine screening. Personal history of breast cancer. Comparison is made to exams dated: 03/21/2018 mammogram, 03/10/2017 mammogram, and 03/09/2016 mammogram - . There are scattered fibroglandular elements in both breasts. Current study was also evaluated with a Computer Aided Detection (CAD) system. There are benign post operative findings in the right breast. No significant masses, calcifications, or other findings are seen in either breast. There has been no significant interval change. IMPRESSION: There is no mammographic evidence of malignancy. A 1 year screening mammogram is recommended. This exam was interpreted at Station ID: [id number]. NOTE: For mammograms, a report in lay terms will be sent to the patient. Approximately 15% of breast malignancies will not be visualized mammographically. In the management of a palpable breast mass, a negative mammogram must not discourage biopsy of a clinically suspicious lesion. Electronically Signed By: Connie howard/gianni:04/09/2019 12:34:29 letter sent: Normal Exam ACR BI-RADS Category 2: Benign Finding(s) 3342F
== END ==
PROVIDERS: PCP Family Medicine; Visit Provider Family Medicine
DX: Z12.31 Encounter for screening mammogram for malignant neoplasm of breast (principal); Z85.3 Personal history of malignant neoplasm of breast
CPT/HCPCS: 77063; 77067

== ENCOUNTER → 2019-04-10 08:40 | Outpatient (CLI) | payer OTHER, SELFPAY ==
[2018-04-25 17:22] VITALS: BMI 24.9
[2019-04-10 09:14] LABS: Add Manual Diff / Slide Review NO; Basophils Absolute Auto 100 /uL (0-100); Basophils Percent Auto 0.9 % (0-2); Eosinophils Absolute Auto 200 /uL (0-450); Eosinophils Percent Auto 3.2 % (2-4); Hematocrit 39.1 % (36-46); Hemoglobin 13.3 g/dL (12.0-16.0); Lymphocytes Absolute Auto 2400 /uL (1100-4500); Lymphocytes Percent Auto 32.8 % (25-40); Mean Corpuscular HGB Conc 34.1 % (30-36); Mean Corpuscular Hemoglobin 31.1 PG (26-34); Mean Corpuscular Volume 91.5 fL (80-100); Monocytes Absolute Auto 700 /uL (0-900); Monocytes Percent Auto 9.7 % (3-14); Neutrophils Absolute Auto 3900 /uL (1500-7000); Neutrophils Percent Auto 53.4 % (50-75); Platelet Count 282 X10^3/uL (150-400); Red Blood Cell Count 4.28 X10^6/uL (4.0-5.2); Red Cell Distribution Width 13.8 % (11.6-14.8); White Blood Cell Count 7.2 X10^3/uL (4.5-11.0)
[2019-04-10 09:21] LABS: Cholesterol 169 mg/dL (140-199); HDL Cholesterol 60 mg/dL (40-60); LDL Cholesterol Calculated 90 mg/dL (<100); Triglycerides 93 mg/dL (35-150)
[2019-04-10 09:40] LABS: HEMOLYSIS < 15 (0-50); Iron 162 ug/dL (37-170)
[2019-04-10 09:52] LABS: Percent Iron Saturation 53 % (15-50); Total Iron Binding Capacity 307 ug/dL (265-497); Transferrin 250 mg/dL (206-381)
[2019-04-10 09:54] LABS: Ferritin 32.7 ng/mL (11.1-264)
== END ==
PROVIDERS: PCP Family Medicine; Visit Provider Family Medicine
DX: D64.9 Anemia, unspecified (principal); E78.5 Hyperlipidemia, unspecified
CPT/HCPCS: 36415; 80061; 82728; 83540; 83550; 85025

== ENCOUNTER → 2019-06-17 08:46 | Outpatient (CLI) | payer OTHER, SELFPAY ==
[2019-05-07 13:33] VITALS: BMI 24.9
[2019-06-17 10:14] LABS: BUN Creatinine Ratio 26.4 (6-22); Blood Urea Nitrogen 29 mg/dL (7-17)
== END ==
PROVIDERS: PCP Family Medicine; Referring Provider Surgery; Visit Provider Surgery
DX: I71.4 Abdominal aortic aneurysm, without rupture (principal)
CPT/HCPCS: 36415; 82565; 84520

== ENCOUNTER → 2019-07-16 16:25 | Outpatient (CLI) | payer OTHER, SELFPAY ==
[2019-05-07 13:33] VITALS: BMI 24.9
[2019-07-16 16:53] LABS: Hematocrit 40.1 % (36-46); Hemoglobin 13.4 g/dL (12.0-16.0)
[2019-07-16 18:40] LABS: Ferritin 52 ng/mL (11-264)
== END ==
PROVIDERS: PCP Family Medicine; Referring Provider Nurse Practitioner; Visit Provider Nurse Practitioner
DX: D64.9 Anemia, unspecified (principal)
CPT/HCPCS: 36415; 82728; 85014; 85018

== ENCOUNTER → 2019-10-18 13:07 | Outpatient (CLI) | payer OTHER, SELFPAY ==
[2019-05-07 13:33] VITALS: BMI 24.9
[2019-10-18 14:53] LABS: Hemoglobin 13.5 g/dL (12.0-16.0)
[2019-10-18 15:13] LABS: HEMOLYSIS < 15 (0-50); Iron 130 ug/dL (37-170)
[2019-10-18 15:19] LABS: Glucose 83 mg/dL (80-110)
[2019-10-18 15:25] LABS: Percent Iron Saturation 42 % (15-50); Total Iron Binding Capacity 313 ug/dL (265-497); Transferrin 246 mg/dL (206-381)
[2019-10-18 15:52] LABS: Ferritin 40 ng/mL (11-264)
== END ==
PROVIDERS: PCP Family Medicine; Referring Provider Family Medicine; Visit Provider Family Medicine
DX: D50.9 Iron deficiency anemia, unspecified (principal); D64.9 Anemia, unspecified
CPT/HCPCS: 36415; 82728; 82947; 83540; 83550; 85014; 85018

== ENCOUNTER → 2020-01-31 09:52 | Outpatient (CLI) | payer OTHER, SELFPAY ==
[2019-05-07 13:33] VITALS: BMI 24.9
[2020-01-31 11:09] LABS: Add Manual Diff / Slide Review NO; Basophils Absolute Auto 100 /uL (0-100); Basophils Percent Auto 0.9 % (0-2); Eosinophils Absolute Auto 300 /uL (0-450); Eosinophils Percent Auto 3.2 % (2-4); Hematocrit 41.4 % (36-46); Hemoglobin 13.8 g/dL (12.0-16.0); Lymphocytes Absolute Auto 2600 /uL (1100-4500); Lymphocytes Percent Auto 32.5 % (25-40); Mean Corpuscular HGB Conc 33.3 % (30-36); Mean Corpuscular Hemoglobin 30.7 PG (26-34); Mean Corpuscular Volume 92.1 fL (80-100); Monocytes Absolute Auto 800 /uL (0-900); Monocytes Percent Auto 9.6 % (3-14); Neutrophils Absolute Auto 4400 /uL (1500-7000); Neutrophils Percent Auto 53.8 % (50-75); Platelet Count 283 X10^3/uL (150-400); Red Blood Cell Count 4.49 X10^6/uL (4.0-5.2); Red Cell Distribution Width 13.6 % (11.6-14.8); White Blood Cell Count 8.1 X10^3/uL (4.5-11.0)
[2020-01-31 11:20] LABS: BUN Creatinine Ratio 28.7 (6-22); Blood Urea Nitrogen 29 mg/dL (7-17); Calcium 9.2 mg/dL (8.4-10.2); Carbon Dioxide 31 mmol/L (22-32); Chloride 103 mmol/L (98-107); Estimated Glomerular Filt Rate 53.9 mL/min (>60); Glucose 81 mg/dL (80-110); HEMOLYSIS < 15 (0-50); Magnesium 2.4 mg/dL (1.6-2.3); Potassium 4.3 mmol/L (3.4-5.1); Sodium 138 mmol/L (137-145)
[2020-01-31 11:54] LABS: Ferritin 41 ng/mL (11-264)
== END ==
PROVIDERS: PCP Family Medicine; Referring Provider Family Medicine; Visit Provider Family Medicine
DX: D64.9 Anemia, unspecified (principal); G47.19 Other hypersomnia; M62.838 Other muscle spasm; R25.2 Cramp and spasm; R74.8 Abnormal levels of other serum enzymes
CPT/HCPCS: 36415; 80048; 82728; 83735; 85025

== ENCOUNTER → 2020-04-10 10:52 | Outpatient (CLI) | payer OTHER, SELFPAY ==
[2019-05-07 13:33] VITALS: BMI 24.9
--- NOTE | 2020-04-10 | DI.MG.S_ITS ---
BILATERAL DIGITAL SCREENING MAMMOGRAM 3D/2D WITH CAD POST LUMPECTOMY: 04/10/2020 CLINICAL: Routine screening. Personal history of right breast cancer. Comparison is made to exams dated: 04/09/2019 mammogram, 03/21/2018 mammogram, and 03/10/2017 mammogram - [facility]. There are scattered fibroglandular elements in both breasts. Current study was also evaluated with a Computer Aided Detection (CAD) system. There are benign post operative findings in the right breast. No significant masses, calcifications, or other findings are seen in either breast. There has been no significant interval change. IMPRESSION: BENIGN There is no mammographic evidence of malignancy. A 1 year screening mammogram is recommended. This exam was interpreted at Station ID: [id number]. NOTE: For mammograms, a report in lay terms will be sent to the patient. Approximately 15% of breast malignancies will not be visualized mammographically. In the management of a palpable breast mass, a negative mammogram must not discourage biopsy of a clinically suspicious lesion. Electronically Signed By: Demarcus henry/gianni:04/10/2020 12:05:09 letter sent: Normal Exam ACR BI-RADS Category 2: Benign Finding(s) 3342F
== END ==
PROVIDERS: PCP Family Medicine; Referring Provider Family Medicine; Visit Provider Family Medicine
DX: Z12.31 Encounter for screening mammogram for malignant neoplasm of breast (principal); Z85.3 Personal history of malignant neoplasm of breast
CPT/HCPCS: 77063; 77067

== ENCOUNTER → 2020-04-13 14:22 | Outpatient (CLI) | payer OTHER, SELFPAY ==
[2019-05-07 13:33] VITALS: BMI 24.9
[2020-04-13 16:48] LABS: Add Manual Diff / Slide Review NO; Basophils Absolute Auto 100 /uL (0-100); Basophils Percent Auto 0.9 % (0-2); Eosinophils Absolute Auto 100 /uL (0-450); Eosinophils Percent Auto 2.1 % (2-4); Hematocrit 40.4 % (36-46); Hemoglobin 13.3 g/dL (12.0-16.0); Lymphocytes Absolute Auto 2100 /uL (1100-4500); Lymphocytes Percent Auto 29.3 % (25-40); Mean Corpuscular HGB Conc 32.9 % (30-36); Mean Corpuscular Hemoglobin 30.5 PG (26-34); Mean Corpuscular Volume 92.8 fL (80-100); Monocytes Absolute Auto 700 /uL (0-900); Monocytes Percent Auto 9.5 % (3-14); Neutrophils Absolute Auto 4200 /uL (1500-7000); Neutrophils Percent Auto 58.2 % (50-75); Platelet Count 291 X10^3/uL (150-400); Red Blood Cell Count 4.36 X10^6/uL (4.0-5.2); Red Cell Distribution Width 13.9 % (11.6-14.8); White Blood Cell Count 7.2 X10^3/uL (4.5-11.0)
[2020-04-13 17:24] LABS: Cholesterol 172 mg/dL (140-199); HDL Cholesterol 81 mg/dL (40-60); LDL Cholesterol Calculated 81 mg/dL (<100); Triglycerides 52 mg/dL (35-150)
== END ==
PROVIDERS: PCP Family Medicine; Referring Provider Student in an Organized Health Care Education/Training Program; Visit Provider Family Medicine
DX: E78.2 Mixed hyperlipidemia (principal)
CPT/HCPCS: 36415; 80061; 85025

== ENCOUNTER → 2020-05-20 12:05 | Outpatient (CLI) | payer OTHER, SELFPAY ==
[2019-05-07 13:33] VITALS: BMI 24.9
[2020-05-20 12:42] LABS: Hematocrit 40.6 % (36-46); Hemoglobin 13.7 g/dL (12.0-16.0)
[2020-05-20 12:59] LABS: HEMOLYSIS < 15 (0-50); Iron 95 ug/dL (37-170)
[2020-05-20 13:09] LABS: Percent Iron Saturation 29 % (15-50); Total Iron Binding Capacity 328 ug/dL (265-497); Transferrin 258 mg/dL (206-381)
[2020-05-20 13:13] LABS: Vitamin D 25 Hydroxy (D3) 40.2 ng/mL (30.0-100.0)
[2020-05-20 13:30] LABS: Ferritin 56 ng/mL (11-264)
== END ==
PROVIDERS: PCP Student in an Organized Health Care Education/Training Program; Referring Provider Student in an Organized Health Care Education/Training Program; Visit Provider Student in an Organized Health Care Education/Training Program
DX: D62 Acute posthemorrhagic anemia (principal); M81.0 Age-related osteoporosis without current pathological fracture; K25.9 Gastric ulcer, unspecified as acute or chronic, without hemorrhage or perforation
CPT/HCPCS: 36415; 82306; 82728; 83540; 83550; 85014; 85018

== ENCOUNTER → 2020-06-09 09:37 | Outpatient (CLI) | payer OTHER, SELFPAY ==
[2019-05-07 13:33] VITALS: BMI 24.9
== END ==
PROVIDERS: PCP Student in an Organized Health Care Education/Training Program; Referring Provider Student in an Organized Health Care Education/Training Program; Visit Provider Student in an Organized Health Care Education/Training Program
DX: M81.0 Age-related osteoporosis without current pathological fracture (principal); Z78.0 Asymptomatic menopausal state; Z85.3 Personal history of malignant neoplasm of breast; Z82.62 Family history of osteoporosis
CPT/HCPCS: 77080

== ENCOUNTER → 2020-12-02 10:41 | Outpatient (CLI) | payer OTHER, SELFPAY ==
[2019-05-07 13:33] VITALS: BMI 24.9
[2020-12-02 12:57] LABS: Hematocrit 38.5 % (36-46); Mean Corpuscular HGB Conc 33.7 % (30-36); Mean Corpuscular Hemoglobin 31.3 PG (26-34); Mean Corpuscular Volume 92.9 fL (80-100); Platelet Count 294 X10^3/uL (150-400); Red Blood Cell Count 4.14 X10^6/uL (4.0-5.2); Red Cell Distribution Width 13.5 % (11.6-14.8)
[2020-12-02 13:46] LABS: HEMOLYSIS < 15 (0-50); Iron 85 ug/dL (37-170)
[2020-12-02 13:48] LABS: BUN Creatinine Ratio 28.6 (6-22); Blood Urea Nitrogen 30 mg/dL (7-17); Estimated Glomerular Filt Rate 51.5 mL/min (>60)
[2020-12-02 13:57] LABS: Percent Iron Saturation 28 % (15-50); Total Iron Binding Capacity 305 ug/dL (265-497); Transferrin 252 mg/dL (206-381)
[2020-12-02 14:22] LABS: Ferritin 42 ng/mL (11-264)
== END ==
PROVIDERS: PCP Student in an Organized Health Care Education/Training Program; Referring Provider Student in an Organized Health Care Education/Training Program; Visit Provider Student in an Organized Health Care Education/Training Program
DX: D50.8 Other iron deficiency anemias (principal); N18.9 Chronic kidney disease, unspecified
CPT/HCPCS: 36415; 82565; 82728; 83540; 83550; 84520; 85027

== ENCOUNTER → 2020-12-22 16:43 | Outpatient (CLI) | payer OTHER, SELFPAY ==
[2019-05-07 13:33] VITALS: BMI 24.9
== END ==
PROVIDERS: PCP Student in an Organized Health Care Education/Training Program; Referring Provider Physician Assistant; Visit Provider Physician Assistant
DX: N34.3 Urethral syndrome, unspecified (principal); N89.8 Other specified noninflammatory disorders of vagina
CPT/HCPCS: 87086; 87210

== ENCOUNTER → 2021-04-14 07:57 | Outpatient (CLI) | payer OTHER, SELFPAY ==
[2019-05-07 13:33] VITALS: BMI 24.9
--- NOTE | 2021-04-14 | DI.MG.S_ITS ---
BILATERAL DIGITAL SCREENING MAMMOGRAM 3D/2D WITH CAD POST LUMPECTOMY: 04/14/2021 CLINICAL: Routine screening. Personal history of right breast cancer. Comparison is made to exams dated: 04/10/2020 mammogram, 04/09/2019 mammogram, and 03/21/2018 mammogram - [facility]. There are scattered fibroglandular elements in both breasts. Current study was also evaluated with a Computer Aided Detection (CAD) system. There are benign post operative findings in the right breast. No significant masses, calcifications, or other findings are seen in either breast. There has been no significant interval change. IMPRESSION: BENIGN There is no mammographic evidence of malignancy. A 1 year screening mammogram is recommended. This exam was interpreted at Station ID: [id number]. NOTE: For mammograms, a report in lay terms will be sent to the patient. Approximately 15% of breast malignancies will not be visualized mammographically. In the management of a palpable breast mass, a negative mammogram must not discourage biopsy of a clinically suspicious lesion. Electronically Signed By: Topher Patterson M.D., jr/gianni:04/14/2021 11:30:19 letter sent: Normal Exam ACR BI-RADS Category 2: Benign Finding(s) 3342F
== END ==
PROVIDERS: PCP Student in an Organized Health Care Education/Training Program; Referring Provider Student in an Organized Health Care Education/Training Program; Visit Provider Student in an Organized Health Care Education/Training Program
DX: Z12.31 Encounter for screening mammogram for malignant neoplasm of breast (principal); Z85.3 Personal history of malignant neoplasm of breast
CPT/HCPCS: 77063; 77067

== ENCOUNTER → 2021-06-09 11:23 | Outpatient (CLI) | payer OTHER, SELFPAY ==
[2019-05-07 13:33] VITALS: BMI 24.9
[2021-06-09 13:14] LABS: Hematocrit 38.6 % (36-46); Hemoglobin 12.8 g/dL (12.0-16.0); Mean Corpuscular HGB Conc 33.1 % (30-36); Mean Corpuscular Hemoglobin 30.6 PG (26-34); Mean Corpuscular Volume 92.4 fL (80-100); Platelet Count 271 X10^3/uL (150-400); Red Blood Cell Count 4.17 X10^6/uL (4.0-5.2); Red Cell Distribution Width 13.6 % (11.6-14.8); White Blood Cell Count 5.9 X10^3/uL (4.5-11.0)
[2021-06-09 13:47] LABS: HEMOLYSIS < 15 (0-50); Iron 105 ug/dL (37-170)
[2021-06-09 13:50] LABS: BUN Creatinine Ratio 30.6 (6-22); Blood Urea Nitrogen 34 mg/dL (7-17); Estimated Glomerular Filt Rate 48.2 mL/min (>60)
[2021-06-09 13:58] LABS: Percent Iron Saturation 34 % (15-50); Total Iron Binding Capacity 312 ug/dL (265-497); Transferrin 255 mg/dL (206-381)
[2021-06-09 14:24] LABS: Ferritin 46 ng/mL (11-264)
[2021-06-09 17:08] LABS: Vitamin D 25 Hydroxy (D3) 36.8 ng/mL (30.0-100.0)
== END ==
PROVIDERS: PCP Student in an Organized Health Care Education/Training Program; Referring Provider Student in an Organized Health Care Education/Training Program; Visit Provider Student in an Organized Health Care Education/Training Program
DX: D50.8 Other iron deficiency anemias (principal); E55.9 Vitamin D deficiency, unspecified; N18.31 Chronic kidney disease, stage 3a
CPT/HCPCS: 36415; 82306; 82565; 82728; 83540; 83550; 84520; 85027

== ENCOUNTER → 2021-10-26 16:31 | Outpatient (CLI) | payer OTHER, SELFPAY ==
[2019-05-07 13:33] VITALS: BMI 24.9
[2021-10-26 17:14] LABS: Add Manual Diff / Slide Review NO; Basophils Absolute Auto 100 /uL (0-100); Basophils Percent Auto 0.7 % (0-2); Eosinophils Absolute Auto 100 /uL (0-450); Eosinophils Percent Auto 1.3 % (2-4); Hematocrit 39.3 % (36-46); Hemoglobin 13.4 g/dL (12.0-16.0); Lymphocytes Absolute Auto 2600 /uL (1100-4500); Lymphocytes Percent Auto 32.4 % (25-40); Mean Corpuscular HGB Conc 34.3 % (30-36); Mean Corpuscular Hemoglobin 31.6 PG (26-34); Mean Corpuscular Volume 92.3 fL (80-100); Monocytes Absolute Auto 600 /uL (0-900); Monocytes Percent Auto 7.8 % (3-14); Neutrophils Absolute Auto 4700 /uL (1500-7000); Neutrophils Percent Auto 57.8 % (50-75); Platelet Count 286 X10^3/uL (150-400); Red Blood Cell Count 4.26 X10^6/uL (4.0-5.2); Red Cell Distribution Width 12.9 % (11.6-14.8); White Blood Cell Count 8.1 X10^3/uL (4.5-11.0)
[2021-10-26 17:21] LABS: Hemoglobin A1C% w Est Avg Glu 5.5 % (4.0-6.0)
[2021-10-26 17:26] LABS: Alanine Aminotransferase 34 IU/L (<35); Albumin 4.2 g/dL (3.5-5.0); Albumin Globulin Ratio 1.6 (1.0-2.8); Alkaline Phosphatase 76 U/L (38-126); Aspartate Aminotransferase 30 IU/L (14-36); BUN Creatinine Ratio 32.3 (6-22); Bilirubin Total 0.3 mg/dL (0.2-1.3); Blood Urea Nitrogen 32 mg/dL (7-17); Calcium 9.4 mg/dL (8.4-10.2); Carbon Dioxide 31 mmol/L (22-32); Chloride 104 mmol/L (98-107); Cholesterol 176 mg/dL (140-199); Estimated Glomerular Filt Rate > 60 mL/min (>60); Globulin 2.6 g/dL (1.7-4.1); Glucose 91 mg/dL (80-110); HDL Cholesterol 71 mg/dL (40-60); HEMOLYSIS < 15 (0-50); LDL Cholesterol Calculated 73 mg/dL (<100); Lipase 157 U/L (23-300); Potassium 4.1 mmol/L (3.4-5.1); Sodium 138 mmol/L (137-145); Total Protein 6.8 g/dL (6.3-8.2); Triglycerides 161 mg/dL (35-150)
== END ==
PROVIDERS: PCP Student in an Organized Health Care Education/Training Program; Referring Provider Student in an Organized Health Care Education/Training Program; Visit Provider Student in an Organized Health Care Education/Training Program
DX: E78.2 Mixed hyperlipidemia (principal); E11.9 Type 2 diabetes mellitus without complications; N18.31 Chronic kidney disease, stage 3a; R21 Rash and other nonspecific skin eruption; R35.89 Other polyuria
CPT/HCPCS: 36415; 80053; 80061; 83036; 83690; 85025

== ENCOUNTER → 2022-04-04 15:03 | Outpatient (CLI) | payer OTHER, SELFPAY ==
[2022-03-23 14:18] VITALS: BMI 24.9
--- NOTE | 2022-04-04 15:20 | DI.RAD.S_ITS ---
PROCEDURE: XR KNEE RT 3V INDICATIONS: Right lateral knee pain TECHNIQUE: 3 views of the knee were acquired. COMPARISON: [facility], , KNEE 3V LEFT, 02/05/2014, 10:51. FINDINGS: Bones: No fractures or dislocations. No suspicious bony lesions. Soft tissues: No joint effusion. No suspicious soft tissue calcifications. IMPRESSION: No acute abnormality of the right knee. Dictated by: Alexander Tirado M.D. on 04/04/2022 at 16:42 Approved by: Alexander Tirado M.D. on 04/04/2022 at 16:43
== END ==
PROVIDERS: PCP Student in an Organized Health Care Education/Training Program; Referring Provider Student in an Organized Health Care Education/Training Program; Visit Provider Student in an Organized Health Care Education/Training Program
DX: M25.561 Pain in right knee (principal)
CPT/HCPCS: 73562

== ENCOUNTER → 2022-04-07 15:47 | Outpatient (CLI) | payer OTHER, SELFPAY ==
[2022-03-23 14:18] VITALS: BMI 24.9
[2022-04-07 18:28] LABS: Occult Blood 1 Negative (Negative); Occult Blood 2 Negative (Negative); Occult Blood 3 Negative (Negative)
== END ==
PROVIDERS: PCP Student in an Organized Health Care Education/Training Program; Referring Provider Student in an Organized Health Care Education/Training Program; Visit Provider Student in an Organized Health Care Education/Training Program
DX: K31.819 Angiodysplasia of stomach and duodenum without bleeding (principal)
CPT/HCPCS: 82270

== ENCOUNTER → 2022-04-15 11:22 | Outpatient (CLI) | payer OTHER, SELFPAY ==
[2022-03-23 14:18] VITALS: BMI 24.9
--- NOTE | 2022-04-15 11:22 | DI.MG.S_ITS ---
BILATERAL DIGITAL SCREENING MAMMOGRAM 3D/2D WITH CAD: 04/15/2022 CLINICAL: Routine screening. Personal history of right breast cancer. Comparison is made to exams dated: 04/14/2021 mammogram, 04/10/2020 mammogram, and 04/09/2019 mammogram - [facility]. There are scattered areas of fibroglandular density in both breasts (category b / 25%-50% glandular tissue). Current study was also evaluated with a Computer Aided Detection (CAD) system. There are benign post operative findings in the right breast. No significant masses, calcifications, or other findings are seen in either breast. There has been no significant interval change. IMPRESSION: BENIGN There is no mammographic evidence of malignancy. A 1 year screening mammogram is recommended. This exam was interpreted at Station ID: [id number]. NOTE: For mammograms, a report in lay terms will be sent to the patient. Approximately 15% of breast malignancies will not be visualized mammographically. In the management of a palpable breast mass, a negative mammogram must not discourage biopsy of a clinically suspicious lesion. Electronically Signed By: Topher Patterson M.D., jr/gianni:04/15/2022 12:17:30 letter sent: Normal Exam ACR BI-RADS Category 2: Benign Finding(s) 3342F
== END ==
PROVIDERS: PCP Student in an Organized Health Care Education/Training Program; Referring Provider Student in an Organized Health Care Education/Training Program; Visit Provider Student in an Organized Health Care Education/Training Program
DX: Z12.31 Encounter for screening mammogram for malignant neoplasm of breast (principal); Z85.3 Personal history of malignant neoplasm of breast
CPT/HCPCS: 77063; 77067

== ENCOUNTER 2022-06-09 10:01 | Day surgery (SDC) | payer OTHER, SELFPAY ==
[2022-05-16 14:05] VITALS: BMI 24.9
[2022-06-09] VITALS (7 sets, daily range): BP systolic 98–138; BP diastolic 50–84; PULSE 65–88; RESP 15–18; TEMP 36.1–36.4; O2SAT 98–100; BMI 24.0
--- NOTE | 2022-06-09 | PATH_ITS ---
[facility] Accession Number: [id number] No. of containers.. Tissue . 01 Material submitted: . PART A: stomach - ANTRUM BIOPSIES PART B: gastrointestinal site - GASTRIC BODY BIOPSIES PART C: esophagus - DISTAL ESOPHAGUS BIOPSIES PART D: colon - CECAL POLYP PART E: colon - ASCENDING COLON POLYP PART F: colon - DESCENDING COLON POLYP . 01 Diagnosis: A. Antrum, Biopsies: Gastric antral mucosa with mild chronic inflammation and intestinal metaplasia. Intestinal metaplasia present in two of three biopsy fragments. Negative for Helicobacter organisms by immunohistochemistry. Negative for dysplasia or malignancy. . B. Gastric Body, Biopsies: Gastric body mucosa with no diagnostic abnormality. No evidence of Helicobacter organisms on H/E stain. Negative for intestinal metaplasia. Negative for dysplasia or malignancy. . C. Distal Esophagus, Biopsies: Squamocolumnar junctional mucosa with specialized intestinal metaplasia, consistent with Jones's esophagus. Negative for dysplasia and malignancy. . D. Cecal Polyp: Tubular adenoma. . E. Ascending Colon Polyp: Tubular adenoma. . F. Descending Colon Polyp: Hyperplastic polyp. [facility] 06/21/2022 1504 Local . 01 Electronically signed: . Michael Castillo MD, PhD, Pathologist NPI- [id number] . 01 Gross description: . Part A: ANTRUM BIOPSIES: Received in formalin are 3 fragment(s) of resendiz, soft tissue measuring 0.4 x 0.2 x 0.1 cm to 0.3 x 0.3 x 0.1 cm submitted entirely in 1 cassette(s) Part B: GASTRIC BODY BIOPSIES: Received in formalin is 1 fragment(s) of resendiz, soft tissue measuring 0.2 x 0.2 x 0.1 cm submitted entirely in 1 cassette(s) Part C: DISTAL ESOPHAGUS BIOPSIES: Received in formalin are 3 fragment(s) of resendiz, soft tissue measuring 0.4 x 0.2 x 0.1 cm to 0.3 x 0.1 x 0.1 cm submitted entirely in 1 cassette(s) Part D: CECAL POLYP : Received in formalin are 2 fragment(s) of resendiz, soft tissue measuring 0.1 x 0.1 x 0.1 cm to 0.1 x 0.1 x 0.1 cm submitted entirely in 1 cassette(s) Part E: ASCENDING COLON POLYP: Received in formalin are multiple fragment(s) of resendiz, soft tissue measuring 1.3 x 1.0 x 0.1 cm in aggregate submitted entirely in 1 cassette(s) Part F: DESCENDING COLON POLYP: Received in formalin is 1 fragment(s) of resendiz, soft tissue measuring 1.5 x 0.1 x 0.1 cm submitted entirely in 1 cassette(s) /CPE 06/10/2022 0918 Local . 01 Microscopic: . A. An immunohistochemical stain was performed to evaluate for Helicobacter organisms and is negative. The control stain showed appropriate reactivity. . * This test was developed and its performance characteristics determined by [facility]. It has not been cleared or approved by the U.S. Food and Drug Administration. The FDA has determined that such clearance or approval is not necessary. This test is used for clinical purposes. It should not be regarded as investigational or for research. . 01 Pathologist provided ICD-10: K22.70, K29.70, K31.9, D12.0, D12.2 . 01 CPT . 351577, 172076, 225455, 177072, 644416, 430549, [id number] Specimen Comment: A courtesy copy of this report has been sent to [phone] Performed at: 01 [facility] [address] [place] [address] [address], [place], [place] [id number] MD Demarcus Monteiro MD Phone: [phone]
[2022-06-09] MEDS: LACTATED RINGERS 1,000 ML 100 ML IV ×2 (11:06→12:43)
--- NOTE | 2022-06-09 12:02 | PM.PREOP ---
Pre-operative Note COVID-19 COVID-19 status: Not tested Interval Note History & Physical reviewed/Exam performed by Physician: Yes Changes to H&P: No ASA Class (for procedural sedation): II
--- NOTE | 2022-06-09 13:05 | P.OP.EGD&C_ITS ---
Operative Date/Time/Diagnoses Date of procedure: 06/09/22 Time of procedure: 13:05 Pre-op diagnosis: History of Jones's esophagus and colon polyps Post-op diagnosis: same Procedure & Clinicians Study performed: EGD and colonoscopy Same procedure as scheduled: Yes Surgeon: Kai Tran Procedure Notes Procedure in detail: Surgeon: Kai Tran MD Anesthesia: Dr. Babb Procedure in detail: A timeout was performed. A bite blocked was placed and monitors were attached to the patient. The patient was positioned in a left lateral decubitus position. Sedation was administered by Dr. Babb. Once the patient was sedated the endoscope was inserted through the bite block and passed through the esophagus and stomach and into the duodenum. The duodenum was normal.. We then withdrew the scope into the stomach. There was mild antritis and gastritis. Random biopsies were taken from the antrum and body of the stomach. The endoscope was retroflexed and no hiatal hernia was seen. The endoscope was straightned and withdrawn into the esophagus. There was some salmon-colored mucosa in the distal esophagus about 2 cm from the expected location of the Z-line. Random biopsies were taken from this salmon-colored mucosa and sent as ?distal esophagus?. Findings: Mild antritis and gastritis and patches of salmon-colored mucosa in the distal esophagus up to 2 cm Next we repositioned the patient for a colonoscopy. A digital rectal exam was performed and was normal. The colonoscope was inserted and advanced to the cecum. The appendiceal orifice was identified and photographed. The scope was slowly withdrawn over greater than 6 minutes. There was a 5 mm polyp in the c ecum removed with a cold snare. There was a 6 mm polyp in the ascending colon removed with a hot snare. There was a 7 mm polyp in the descending colon removed with a cold snare. The scope was retroflexed in the rectum and no abnormalities were seen. Findings: 5 mm polyp in the cecum, 6 mm polyp in the ascending colon and 7 mm polyp in the descending colon EBL: 5 mL Scope withdrawal time: 24 minutes Sedation minutes: 38 minutes Post-procedure Disposition: PACU
== END 2022-06-09 13:57 | disposition home or self-care (01) ==
PROVIDERS: PCP Student in an Organized Health Care Education/Training Program; Referring Provider Surgery; Visit Provider Surgery
PROC: 0DJ08ZZ Inspection of Upper Intestinal Tract, Via Natural or Artificial Opening Endoscopic (ICD-10-PCS; CPT 43235; principal; 2022-06-09 11:15)
PROC: 0DJD8ZZ Inspection of Lower Intestinal Tract, Via Natural or Artificial Opening Endoscopic (ICD-10-PCS; CPT 45378; 2022-06-09 11:15)
DX: Z12.11 Encounter for screening for malignant neoplasm of colon (principal); Z86.010 Personal history of colon polyps; Z87.19 Personal history of other diseases of the digestive system; K29.50 Unspecified chronic gastritis without bleeding; K22.70 Barrett's esophagus without dysplasia; D12.0 Benign neoplasm of cecum; D12.2 Benign neoplasm of ascending colon
CPT/HCPCS: 45385; 43239; J2405

== ENCOUNTER → 2022-07-05 08:50 | Outpatient (CLI) | payer OTHER, SELFPAY ==
[2022-05-16 14:05] VITALS: BMI 24.9
[2022-07-05 09:19] LABS: Add Manual Diff / Slide Review NO; Basophils Absolute Auto 0 /uL (0-100); Basophils Percent Auto 0.5 % (0-2); Eosinophils Absolute Auto 200 /uL (0-450); Eosinophils Percent Auto 2.1 % (2-4); Hematocrit 40.6 % (36-46); Hemoglobin 13.3 g/dL (12.0-16.0); Lymphocytes Absolute Auto 2700 /uL (1100-4500); Lymphocytes Percent Auto 30.1 % (25-40); Mean Corpuscular HGB Conc 32.7 % (30-36); Mean Corpuscular Hemoglobin 30.3 PG (26-34); Mean Corpuscular Volume 92.8 fL (80-100); Monocytes Absolute Auto 800 /uL (0-900); Monocytes Percent Auto 9.3 % (3-14); Neutrophils Absolute Auto 5300 /uL (1500-7000); Platelet Count 300 X10^3/uL (150-400); Red Blood Cell Count 4.38 X10^6/uL (4.0-5.2); Red Cell Distribution Width 13.5 % (11.6-14.8); White Blood Cell Count 9.1 X10^3/uL (4.5-11.0)
[2022-07-05 09:34] LABS: Alanine Aminotransferase 23 IU/L (<35); Albumin 4.1 g/dL (3.5-5.0); Albumin Globulin Ratio 1.7 (1.0-2.8); Alkaline Phosphatase 73 U/L (38-126); Aspartate Aminotransferase 26 IU/L (14-36); BUN Creatinine Ratio 28.2 (6-22); Bilirubin Total 0.2 mg/dL (0.2-1.3); Blood Urea Nitrogen 31 mg/dL (7-17); Calcium 8.8 mg/dL (8.4-10.2); Carbon Dioxide 32 mmol/L (22-32); Chloride 102 mmol/L (98-107); Estimated Glomerular Filt Rate 53 mL/min (>60); Globulin 2.4 g/dL (1.7-4.1); Glucose 94 mg/dL (80-110); HEMOLYSIS < 15 (0-50); Potassium 3.9 mmol/L (3.4-5.1); Sodium 140 mmol/L (137-145); Total Protein 6.5 g/dL (6.3-8.2)
[2022-07-05 10:22] LABS: Vitamin B12 738 pg/mL (239-931)
[2022-07-05 10:27] LABS: TSH w/ Reflex to FT4 2.31 uIU/mL (0.47-4.68)
== END ==
PROVIDERS: PCP Student in an Organized Health Care Education/Training Program; Referring Provider Student in an Organized Health Care Education/Training Program; Visit Provider Student in an Organized Health Care Education/Training Program
DX: N18.31 Chronic kidney disease, stage 3a (principal); R53.83 Other fatigue
CPT/HCPCS: 36415; 80053; 82607; 84443; 85025

== ENCOUNTER → 2022-08-10 12:50 | Outpatient (CLI) | payer OTHER, SELFPAY ==
[2022-05-16 14:05] VITALS: BMI 24.9
--- NOTE | 2022-08-10 12:51 | DI.ECHO.S_ITS ---
[facility]---------+ [facility] +---------+ : : [address] [place] : : : : [id number] : : : : Phone: [phone]---------+ Echocardiogram Report + + :Name: TIFFANY ZAMBRANO Study Date: 08/10/2022 Height: 64 in : :[facility] ReadingLocation: Weight: 138 lb : : Gender: Female BSA: 1.7 m2 : :: 1945 Age: 76 yrs BP: 112/60 mmHg: :Reason For Study: AORTIC VALVE INSUFFICIENCY HR: 70 : :Ordering Physician: VICKY, : :TED Performed By: KELLEE HOGAN : :Referring: TED PERRY : + + Interpretation Summary The left ventricle is normal in size. The ejection fraction is estimated to be 60-65%. No significant change in LVEF from the previous study. The right ventricle is normal in size and function. There is mild to moderate mitral regurgitation. Compared to the prior echo study, there has been no change in the severity of mitral regurgitation. There is moderate aortic regurgitation. Compared to the prior echo study, there has been no change in the severity of aortic regurgitation. The IVC is of normal diameter and collapses greater than 50% with a sniff. This suggests a low right atrial pressure of 3 mm Hg. The ascending aorta is moderately enlarged. 4.4 cm in diameter. Previously 3.3 cm in October 14, 2016. Mild atherosclerotic plaque(s) in the aortic arch. Procedure: A two-dimensional transthoracic echocardiogram with color flow and Doppler was performed. The study quality was technically adequate. Comparison is made with the echocardiogram of 10/14/2016. The patient was in normal sinus rhythm during the exam. Left Ventricle: The left ventricle is normal in size. Proximal septal thickening is noted. There is no echo evidence for significant left ventricular outflow tract obstruction. There is no thrombus. A false chord is noted (normal variant). Left ventricular systolic function is normal. The ejection fraction is estimated to be 60-65%. There are no focal wall motion abnormalities. Diastolic parameters suggest a relaxation abnormality of the left ventricle, consistent with probable normal filling pressures. Right Ventricle: The right ventricle is normal in size and function. Atria: Both atria are normal in size. The left atrium has significantly decreased in size since the prior echo exam. The interatrial septum grossly appears intact with no obvious evidence for an atrial septal defect. Mitral Valve: The mitral valve leaflets appear moderately thickened, but open well. There is mild mitral annular calcification. The mitral valve leaflets are mildly calcified. The mitral valve chordae are thickened and/or calcified. There is mild to moderate mitral regurgitation. Compared to the prior echo study, there has been no change in the severity of mitral regurgitation. Aortic Valve: The aortic valve is trileaflet. The aortic valve opens well. The aortic valve is mildly calcified. There is no aortic valve stenosis. There is moderate aortic regurgitation. Compared to the prior echo study, there has been no change in the severity of aortic regurgitation. Tricuspid Valve: The tricuspid valve is normal. There is trace tricuspid regurgitation. Pulmonary artery pressures cannot be estimated because of the lack of a measurable TR jet velocity. Pulmonic Valve: The pulmonic valve is not well seen, but is grossly normal. There is no pulmonic valvular regurgitation. Great Vessels: The aortic root is normal size. The ascending aorta is moderately enlarged. Mild atherosclerotic plaque(s) in the aortic arch. The IVC is of normal diameter and collapses greater than 50% with a sniff. This suggests a low right atrial pressure of 3 mm Hg. Pericardium/ Pleura There is no pericardial effusion. There is no pleural effusion. MMode/2D Measurements & Calculations LVIDd: 3.5 cm LVOT diam: 2.0 cm LVIDs: 2.7 cm Ao root diam: 3.3 cm FS: 22.2 % asc Aorta Diam: 4.4 cm IVSd: 1.1 cm LVPWd: 1.1 cm LV chowdhury. diameter/BSA (cm/m^2): 2.1 LV sys. diameter/BSA (cm/m^2): 1.6 LA A2 area: 18.1 cm2 RA long axis: 5.5 cm LA A4 area: 12.2 cm2 RA area: 19.6 cm2 LA length (vol): 3.7 cm RA vol: 59.6 ml LA vol: 50.9 ml RA : 35.7 ml/m2 LA vol index: 30.4 ml/m2 TAPSE: 2.7 cm Doppler Measurements & Calculations Ao V2 max: 170.6 cm/sec LVOT Max Joel: 152.1 cm/sec Ao V2 mean: 136.2 cm/sec LV V1 max P.3 mmHg Ao max P.6 mmHg LV V1 VTI: 39.7 cm Ao mean P.8 mmHg FELICIANO(I,D): 2.9 cm2 Ao V2 VTI: 42.5 cm FELICIANO(V,D): 2.7 cm2 sev ratio: 0.93 FELICIANO indexed to BSA (cm^2/m^2): 1.7 AI P1/2t: 293.9 msec AI dec slope: 442.3 cm/sec2 MV E max joel: 55.4 cm/sec PA V2 max: 74.5 cm/sec MV A max joel: 66.2 cm/sec PA V2 mean: 57.3 cm/sec MV E/A: 0.84 PA mean P.4 mmHg Med Peak E' Joel: 4.4 cm/sec PA pr(Accel): 24.2 mmHg E/E' med: 12.5 Lat Peak E' Joel: 7.6 cm/sec E/E' lat: 7.3 E/e' average: 9.9 MV dec time: 0.21 sec SV(LVOT): 121.5 ml Reading Physician:04:54 PM
--- NOTE | 2022-08-10 13:04 | DI.DEXA.S_ITS ---
Bone Density Report Name: TIFFANY ZAMBRANO Age: 76 Sex: Female Ethnicity: White Date of : 1945 Indication: osteopenia; monitoring treatment; Referring Provider: TED PERRY Study: Bone densitometry was performed. Exam Date: August 10, 2022 Accession number: [id number] Bone Density: Region BMD T-score Z-score Classification AP Spine(L1, L2, L4) 0.814 -2.0 0.4 Osteopenia Femoral Neck (Left) 0.561 -2.6 -0.5 Osteoporosis Total Hip (Left) 0.738 -1.7 0.1 Osteopenia Femoral Neck (Right) 0.535 -2.8 -0.8 Osteoporosis Total Hip (Right) 0.705 -1.9 -0.2 Osteopenia Total Hip Mean 0.721 -1.8 -0.1 Osteopenia World Health Organization criteria for BMD impression classify patients as: Normal (T-score at or above -1.0), Osteopenia (T-score between -1.0 and -2.5), or Osteoporosis (T-score at or below -2.5). 10-year Fracture Risk: FRAX not reported because: Some T-score for Spine Total or Hip Total or Femoral Neck at or below -2.5 Treated for osteoporosis Previous Exams: -- Region Exam Age BMD T-score BMD Change BMD Change Date g/cm2 vs Baseline vs Previous -- AP Spine (L1-L2,L4) 08/10/2022 76 0.814 -2.0 0.023 (2.9%)# 0.023 (2.9%)# 06/09/2020 74 0.791 -2.2 Total Hip(Left) 08/10/2022 76 0.738 -1.7 0.001 (0.1%)# 0.001 (0.1%)# 06/09/2020 74 0.737 -1.7 Total Hip(Right) 08/10/2022 76 0.705 -1.9 -0.025 (-3.4%)# -0.025 (-3.4%)# 06/09/2020 74 0.730 -1.7 -- *Denotes significance at 95% confidence level, LSC for AP Spine = 0.022 g/cm2, LSC for Total Hip = 0.027 g/cm2 # Denotes dissimilar scan types or analysis methods Impression: The patient has osteoporosis, based on the Right Femoral Neck T-score. No significant bone loss was observed. Discussion: PATIENT UNDER TREATMENT WITH NO SIGNIFICANT BMD LOSS SINCE LAST EXAM. In an untreated patient, BMD typically declines with age. A lack of decline or gain is usually a sign that treatment is efficacious and fracture risk is reduced. It is important to ask patients whether they are taking their medications and to encourage continued and appropriate compliance with their osteoporosis therapies to reduce fracture risk. It is also important to review their risk factors and encourage appropriate calcium and vitamin D intakes, exercise, fall prevention and other lifestyle measures. Follow-Up: Consider a repeat BMD and Vertebral Fracture Assessment (VFA) exam in 2 years or sooner if medically necessary, to reassess this patient's status. Reported by: YI MAC M.D on 08/10/2022 1:14:00 PM.
== END ==
PROVIDERS: PCP Student in an Organized Health Care Education/Training Program; Referring Provider Student in an Organized Health Care Education/Training Program; Visit Provider Student in an Organized Health Care Education/Training Program
DX: I08.0 Rheumatic disorders of both mitral and aortic valves; I77.89 Other specified disorders of arteries and arterioles; I70.0 Atherosclerosis of aorta; M81.0 Age-related osteoporosis without current pathological fracture
CPT/HCPCS: 77080; 93306

== ENCOUNTER → 2022-11-11 11:27 | Outpatient (CLI) | payer OTHER, SELFPAY ==
[2022-11-10 15:19] VITALS: BMI 24.9
== END ==
PROVIDERS: PCP Student in an Organized Health Care Education/Training Program; Visit Provider Physician Assistant
DX: N39.0 Urinary tract infection, site not specified (principal); N89.8 Other specified noninflammatory disorders of vagina
CPT/HCPCS: 87086; 87210

== ENCOUNTER → 2023-01-06 08:56 | Outpatient (CLI) | payer OTHER, SELFPAY ==
[2022-11-10 15:19] VITALS: BMI 24.9
--- NOTE | 2023-01-06 | DI.CT.S_ITS ---
PROCEDURE: CT ABDOMEN PELVIS W CON INDICATIONS: ABNORMAL WEIGHT LOSS TECHNIQUE: After the administration of oral and intravenous contrast, axial sections were acquired from the lung bases to the pubic symphysis. Coronal and sagittal reformats were performed. For radiation dose reduction, the following was used: automated exposure control, adjustment of mA and/or kV according to patient size. COMPARISON:[facility], CT, CT ABDOMEN WO/W CON, 08/03/2018, 10:25. [facility], CT, ABDOMEN/PELVIS WITH CONTRAST, 05/08/2014, 8:55. FINDINGS: Lung bases: No pleural effusion. ABDOMEN: Liver: Redemonstrated enhancing structure in hepatic segment 2 previously characterized as a hemangioma. Gallbladder: Surgically absent. Biliary ducts: Mild dilation of the extrahepatic duct measuring up to 10 millimeters without intrahepatic ductal dilation demonstrated. This is not significantly changed since the prior exam. There is prominence of the central intrahepatic ducts without peripheral intrahepatic ductal dilation demonstrated. Pancreas: Dilation of the main pancreatic duct to the level of the ampulla redemonstrated, duct measuring up to 5 millimeters at the pancreatic head, not significantly changed. Spleen: Unremarkable. Adrenal Glands: Unremarkable. Kidneys and Ureters: No hydronephrosis. Stomach and Bowel: Possible prior fundoplication with portion of the suspected wrap above the hiatus. No evidence of mechanical small bowel obstruction. Peritoneum: No abnormal intraperitoneal fluid. No free air. Abdominal Nodes: No retroperitoneal or mesenteric adenopathy by size criteria. Vessels: Aorta and inferior vena cava are normal in size. 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 PELVIS: Pelvic Organs: The uterus is not visualized and is presumed surgically absent. Bladder: Unremarkable. Pelvic Nodes: No enlarged lymph nodes. Bones: Multilevel degenerative change of the visualized spine. IMPRESSION: 1. No acute appearing abnormality identified within the abdomen or pelvis. 2. Redemonstrated biliary and pancreatic ductal dilation, likely not substantially changed since the 2019 comparison exam. This is a nonspecific finding. Could consider endoscopic evaluation to assess for etiologies such as an occult ampullary mass, papillary stenosis, or sphincter of Oddi dysfunction. Dictated by: Benny Allen M.D. on 01/06/2023 at 13:33 Approved by: Benny Allen M.D. on 01/06/2023 at 14:08
== END ==
PROVIDERS: PCP Pediatrics; Referring Provider Internal Medicine; Visit Provider Internal Medicine
DX: K83.8 Other specified diseases of biliary tract (principal); K86.89 Other specified diseases of pancreas; R63.4 Abnormal weight loss
CPT/HCPCS: 74177; Q9967

== ENCOUNTER → 2023-03-11 10:40 | Outpatient (CLI) | payer OTHER, SELFPAY ==
[2022-11-10 15:19] VITALS: BMI 24.9
[2023-03-11 11:10] LABS: Add Manual Diff / Slide Review NO; Basophils Absolute Auto 100 /uL (0-100); Basophils Percent Auto 1.1 % (0-2); Eosinophils Absolute Auto 300 /uL (0-450); Eosinophils Percent Auto 3.7 % (2-4); Hematocrit 39.2 % (36-46); Hemoglobin 13.4 g/dL (12.0-16.0); Lymphocytes Absolute Auto 1900 /uL (1100-4500); Mean Corpuscular HGB Conc 34.1 % (30-36); Mean Corpuscular Volume 90.9 fL (80-100); Monocytes Absolute Auto 700 /uL (0-900); Monocytes Percent Auto 9.9 % (3-14); Neutrophils Absolute Auto 3900 /uL (1500-7000); Neutrophils Percent Auto 57.3 % (50-75); Platelet Count 281 X10^3/uL (150-400); Red Blood Cell Count 4.31 X10^6/uL (4.0-5.2); Red Cell Distribution Width 13.1 % (11.6-14.8); White Blood Cell Count 6.7 X10^3/uL (4.5-11.0)
[2023-03-11 11:14] LABS: Hemoglobin A1C% w Est Avg Glu 5.9 % (4.0-6.0)
[2023-03-11 11:41] LABS: Alanine Aminotransferase 21 IU/L (<35); Albumin 3.7 g/dL (3.5-5.0); Albumin Globulin Ratio 1.5 (1.0-2.8); Alkaline Phosphatase 67 U/L (38-126); Aspartate Aminotransferase 25 IU/L (14-36); BUN Creatinine Ratio 27.9 (6-22); Bilirubin Total 0.6 mg/dL (0.2-1.3); Blood Urea Nitrogen 29 mg/dL (7-17); Calcium 9.6 mg/dL (8.4-10.2); Carbon Dioxide 27 mmol/L (22-32); Chloride 105 mmol/L (98-107); Cholesterol 174 mg/dL (140-199); Estimated Glomerular Filt Rate 56 mL/min (>60); Globulin 2.5 g/dL (1.7-4.1); Glucose 86 mg/dL (80-110); HDL Cholesterol 71 mg/dL (40-60); HEMOLYSIS < 15 (0-50); LDL Cholesterol Calculated 87 mg/dL (<100); Sodium 138 mmol/L (137-145); Total Protein 6.2 g/dL (6.3-8.2); Triglycerides 82 mg/dL (35-150)
[2023-03-11 11:56] LABS: Vitamin D 25 Hydroxy (D3) 70.9 ng/mL (30.0-100.0)
[2023-03-11 12:10] LABS: Thyroid Stimulating Hormone 0.826 uIU/mL (0.47-4.68)
== END ==
PROVIDERS: PCP Family Medicine; Referring Provider Family Medicine; Visit Provider Family Medicine
DX: I10 Essential (primary) hypertension (principal); N18.31 Chronic kidney disease, stage 3a; K58.9 Irritable bowel syndrome, unspecified; E78.2 Mixed hyperlipidemia; M81.0 Age-related osteoporosis without current pathological fracture; Z00.00 Encounter for general adult medical examination without abnormal findings
CPT/HCPCS: 36415; 80053; 80061; 82306; 83036; 84443; 85025

== ENCOUNTER → 2023-03-15 13:09 | Outpatient (CLI) | payer OTHER, SELFPAY ==
[2022-11-10 15:19] VITALS: BMI 24.9
[2023-03-15 15:08] LABS: Creatinine Urine Random 103.5 mg/dL; Microalbumi Creatinin Ratio Ur 21.2 ug/mg CR (<30); Microalbumin Urine Random 2.2 mg/dL (0-1.6)
== END ==
PROVIDERS: PCP Family Medicine; Referring Provider Family Medicine; Visit Provider Family Medicine
DX: I10 Essential (primary) hypertension (principal); N18.31 Chronic kidney disease, stage 3a
CPT/HCPCS: 82043; 82570

== ENCOUNTER → 2023-04-17 14:05 | Outpatient (CLI) | payer OTHER, SELFPAY ==
[2022-11-10 15:19] VITALS: BMI 24.9
--- NOTE | 2023-04-17 | DI.MG.S_ITS ---
BILATERAL DIGITAL SCREENING MAMMOGRAM 3D/2D WITH CAD POST LUMPECTOMY: 04/17/2023 CLINICAL: Routine screening. Breast cancer. Comparison is made to exams dated: 04/15/2022 mammogram, 04/14/2021 mammogram, and 04/10/2020 mammogram - [facility]. There are scattered areas of fibroglandular density in both breasts (category b / 25%-50% glandular tissue). Current study was also evaluated with a Computer Aided Detection (CAD) system. There are benign post operative findings in the right breast. No significant masses, calcifications, or other findings are seen in either breast. There has been no significant interval change. IMPRESSION: BENIGN There is no mammographic evidence of malignancy. A 1 year screening mammogram is recommended. This exam was interpreted at Station ID: [id number]. NOTE: For mammograms, a report in lay terms will be sent to the patient. Approximately 15% of breast malignancies will not be visualized mammographically. In the management of a palpable breast mass, a negative mammogram must not discourage biopsy of a clinically suspicious lesion. Electronically Signed By: Connie howard/gianni:04/17/2023 15:59:02 letter sent: Normal Exam ACR BI-RADS Category 2: Benign Finding(s) 3342F
== END ==
PROVIDERS: PCP Family Medicine; Referring Provider Family Medicine; Visit Provider Family Medicine
DX: Z12.31 Encounter for screening mammogram for malignant neoplasm of breast (principal); Z85.3 Personal history of malignant neoplasm of breast
CPT/HCPCS: 77063; 77067

== ENCOUNTER → 2023-05-12 13:37 | Outpatient (CLI) | payer MEDICARE, SELFPAY ==
[2022-11-10 15:19] VITALS: BMI 24.9
[2023-05-12 16:23] LABS: BUN Creatinine Ratio 28.4 (6-22); Blood Urea Nitrogen 29 mg/dL (7-17); Carbon Dioxide 27 mmol/L (22-32); Chloride 101 mmol/L (98-107); Estimated Glomerular Filt Rate 57 mL/min (>60); Glucose 83 mg/dL (80-110); HEMOLYSIS < 15 (0-50); Magnesium 2.2 mg/dL (1.6-2.3); Sodium 136 mmol/L (137-145)
== END ==
PROVIDERS: PCP Family Medicine; Referring Provider Family Medicine; Visit Provider Family Medicine
DX: R25.2 Cramp and spasm (principal)
CPT/HCPCS: 36415; 80048; 83735

== ENCOUNTER → 2023-08-08 11:20 | Outpatient (CLI) | payer MEDICARE, SELFPAY ==
[2022-11-10 15:19] VITALS: BMI 24.9
--- NOTE | 2023-08-08 11:44 | DI.RAD.S_ITS ---
PROCEDURE: XR CHEST 2V INDICATIONS: cough x 1 week TECHNIQUE: 2 views of the chest were acquired. COMPARISON: [facility], , CHEST 1 VIEW, 02/08/2017, 8:14. FINDINGS: Surgical changes and devices: Surgical clips are seen projecting over the right breast/right axilla and upper abdomen. Lungs and pleura: Lungs are mildly hyperexpanded and clear. No pleural effusions or pneumothorax. Mediastinum: Mediastinal contours are normal. Heart size is normal. Bones and chest wall: No suspicious bony abnormalities. Generalized osteopenia. Mild scoliotic curvature of the spine. Soft tissues appear unremarkable. IMPRESSION: No acute cardiopulmonary abnormality is seen. Approved by: Benny Macias M.D. on 08/08/2023 at 14:59
[2023-08-08 12:17] LABS: Influenza A - CEPHEID Flu A NEGATIVE (NEGATIVE); Influenza B - CEPHEID Flu B NEGATIVE (NEGATIVE); Respiratory Syncytial Virus Negative (Negative)
[2023-08-08 12:18] LABS: COVID-19 CEPHEID 4-PLEX PCR Negative (Negative)
== END ==
PROVIDERS: PCP Family Medicine; Referring Provider Physician Assistant; Visit Provider Physician Assistant
DX: R05.1 Acute cough (principal); J06.9 Acute upper respiratory infection, unspecified
CPT/HCPCS: 0241U; 71046

== ENCOUNTER → 2023-08-11 08:04 | Outpatient (CLI) | payer MEDICARE, SELFPAY ==
[2022-11-10 15:19] VITALS: BMI 24.9
--- NOTE | 2023-08-11 08:05 | DI.ECHO.S_ITS ---
[place] [facility]---------+ [facility] +---------+ : : [address] : [place] : : : : [phone] : : : : Phone: [phone]---------+ Echocardiogram Report + + :Name: TIFFANY ZAMBRANO Study Date: 08/11/2023 Height: 63.5 in: :[facility] ReadingLocation: Weight: 125 lb : : Gender: Female BSA: 1.6 m2 : :: 1945 Age: 77 yrs BP: 112/59 mmHg: :Reason For Study: PALPITATIONS, AORTIC INSUFFICIENCY : :Ordering Physician: FAIZA, : :CRISTOFER Ledezma Performed By: Faviola Raygoza : :Referring: CRISTOFER KENDALL : + + Interpretation Summary Sinus rhythm with pauses during exam concerning for Mobitz II AV block. Normal LV size and wall thickness; EF is 60-65%. Normal chamber sizes. Aortic valve is a trileaflet structure with mild associated aortic regurgitation. Moderately dilated ascending aorta measuring 4.2 cm in diameter. Compared to prior echo 08/10/2022 sinus bradycardia is new, pauses are new and possible Mobitz II AV block is new. Otherwise no significant changes have occurred. Procedure: A two-dimensional transthoracic echocardiogram with color flow and Doppler was performed. The study quality was technically adequate. Comparison is made with the echocardiogram of 08/10/2022. The heart rate ranged between 46-54 bpm during the study. Left Ventricle: The left ventricle is normal in size and wall thickness. The ejection fraction is estimated to be 60-65%. Right Ventricle: The right ventricle is normal in size and function. Atria: The left atrium is mildly dilated. Right atrial size is normal. There is no Doppler evidence for an interatrial shunt. Mitral Valve: The mitral valve leaflets appear moderately thickened, but open well. There is mild mitral annular calcification. There is mild to moderate mitral regurgitation. Aortic Valve: The aortic valve is trileaflet. The aortic valve opens well. There is no aortic valve stenosis. There is moderate aortic regurgitation. Tricuspid Valve: The tricuspid valve is normal. There is trace tricuspid regurgitation. The right ventricular systolic pressure is estimated to be at least 29 mmHg based on an estimated right atrial pressure of 3 mm Hg. Pulmonic Valve: The pulmonic valve leaflets are thin and pliable; valve motion is normal. There is a trace or physiologic amount of pulmonic regurgitation. Great Vessels: The aortic root is normal size. The ascending aorta is moderately enlarged. The IVC is of normal diameter and collapses greater than 50% with a sniff. This suggests a low right atrial pressure of 3 mm Hg. Pericardium/ Pleura There is no pericardial effusion. There is no pleural effusion. MMode/2D Measurements & Calculations LVIDd: 4.8 cm LVOT diam: 2.0 cm LVIDs: 3.1 cm Ao root diam: 3.5 cm FS: 35.7 % asc Aorta Diam: 4.2 cm IVSd: 0.91 cm Ao Arch Diam (Prox Trans): 2.8 cm LVPWd: 0.86 cm LV chowdhury. diameter/BSA (cm/m^2): 3.0 LV sys. diameter/BSA (cm/m^2): 1.9 LA A2 area: 14.7 cm2 RA long axis: 5.4 cm LA A4 area: 18.3 cm2 RA area: 16.5 cm2 LA length (vol): 4.2 cm RA vol: 42.5 ml LA vol: 54.6 ml RA : 26.6 ml/m2 LA vol index: 34.3 ml/m2 IVC diam: 1.1 cm RVD1 (basal): 4.0 cm TAPSE: 2.4 cm Doppler Measurements & Calculations Ao V2 max: 157.1 cm/sec LVOT Max Joel: 128.9 cm/sec Ao V2 mean: 116.5 cm/sec LV V1 max P.7 mmHg Ao max P.9 mmHg LV V1 VTI: 32.3 cm Ao mean P.9 mmHg FELICIANO(I,D): 2.5 cm2 Ao V2 VTI: 39.0 cm FELICIANO(V,D): 2.5 cm2 sev ratio: 0.83 FELICIANO indexed to BSA (cm^2/m^2): 1.6 AI P1/2t: 849.8 msec AI dec slope: 122.6 cm/sec2 MV E max joel: 59.1 cm/sec TR max joel: 254.0 cm/sec MV A max joel: 67.3 cm/sec TR max P.8 mmHg MV E/A: 0.88 PA pr(Accel): 27.6 mmHg Med Peak E' Joel: 4.6 cm/sec E/E' med: 12.8 Lat Peak E' Joel: 6.2 cm/sec E/E' lat: 9.5 E/e' average: 11.1 MV dec time: 0.20 sec SV(LVOT): 98.1 ml Electronically signed by: Alva Stapleton M.D. on [place] Physician:08/12/2023 01:19 AM
== END ==
LOC: ECHO 08:04
PROVIDERS: PCP Family Medicine; Referring Provider Family Medicine; Visit Provider Family Medicine
DX: I77.810 Thoracic aortic ectasia (principal); I10 Essential (primary) hypertension; I08.0 Rheumatic disorders of both mitral and aortic valves; I77.89 Other specified disorders of arteries and arterioles; I44.0 Atrioventricular block, first degree; I49.1 Atrial premature depolarization
CPT/HCPCS: 93306

== ENCOUNTER → 2023-08-18 13:17 | Outpatient (CLI) | payer MEDICARE, SELFPAY ==
[2022-11-10 15:19] VITALS: BMI 24.9
[2023-08-18 14:24] LABS: Add Manual Diff / Slide Review NO; Basophils Absolute Auto 0 /uL (0-100); Basophils Percent Auto 0.7 % (0-2); Eosinophils Absolute Auto 200 /uL (0-450); Eosinophils Percent Auto 2.1 % (2-4); Hematocrit 40.3 % (36-46); Hemoglobin 13.4 g/dL (12.0-16.0); Lymphocytes Absolute Auto 2100 /uL (1100-4500); Lymphocytes Percent Auto 28.9 % (25-40); Mean Corpuscular HGB Conc 33.1 % (30-36); Mean Corpuscular Hemoglobin 30.5 PG (26-34); Mean Corpuscular Volume 92.1 fL (80-100); Monocytes Absolute Auto 600 /uL (0-900); Monocytes Percent Auto 8.7 % (3-14); Neutrophils Absolute Auto 4200 /uL (1500-7000); Neutrophils Percent Auto 59.6 % (50-75); Platelet Count 318 X10^3/uL (150-400); Red Blood Cell Count 4.38 X10^6/uL (4.0-5.2); Red Cell Distribution Width 13.4 % (11.6-14.8); White Blood Cell Count 7.1 X10^3/uL (4.5-11.0)
[2023-08-18 14:43] LABS: Alanine Aminotransferase 22 IU/L (<35); Albumin Globulin Ratio 1.7 (1.0-2.8); Alkaline Phosphatase 67 U/L (38-126); Aspartate Aminotransferase 26 IU/L (14-36); BUN Creatinine Ratio 36.5 (6-22); Bilirubin Total 0.4 mg/dL (0.2-1.3); Blood Urea Nitrogen 42 mg/dL (7-17); Carbon Dioxide 28 mmol/L (22-32); Chloride 111 mmol/L (98-107); Cholesterol 170 mg/dL (140-199); Estimated Glomerular Filt Rate 50 mL/min (>60); Globulin 2.3 g/dL (1.7-4.1); Glucose 81 mg/dL (80-110); HDL Cholesterol 64 mg/dL (40-60); HEMOLYSIS < 15 (0-50); LDL Cholesterol Calculated 92 mg/dL (<100); Potassium 4.4 mmol/L (3.4-5.1); Sodium 140 mmol/L (137-145); Total Protein 6.3 g/dL (6.3-8.2); Triglycerides 70 mg/dL (35-150)
[2023-08-18 14:55] LABS: Free T4, Direct Thyroxine 1.04 ng/dL (0.78-2.19)
[2023-08-18 15:08] LABS: Thyroid Stimulating Hormone 0.522 uIU/mL (0.47-4.68)
== END ==
PROVIDERS: PCP Family Medicine; Referring Provider Internal Medicine; Visit Provider Internal Medicine
DX: R00.2 Palpitations (principal); E78.5 Hyperlipidemia, unspecified; R06.09 Other forms of dyspnea
CPT/HCPCS: 36415; 80053; 80061; 84439; 84443; 85025

== ENCOUNTER → 2024-01-02 13:02 | Outpatient (CLI) | payer MEDICARE, SELFPAY ==
[2022-11-10 15:19] VITALS: BMI 24.9
[2024-01-02 13:26] LABS: Add Manual Diff / Slide Review NO; Basophils Absolute Auto 100 /uL (0-100); Basophils Percent Auto 0.7 % (0-2); Eosinophils Absolute Auto 100 /uL (0-450); Eosinophils Percent Auto 1.5 % (2-4); Hematocrit 40.2 % (36-46); Hemoglobin 13.6 g/dL (12.0-16.0); Lymphocytes Absolute Auto 1900 /uL (1100-4500); Lymphocytes Percent Auto 27.8 % (25-40); Mean Corpuscular HGB Conc 33.9 % (30-36); Mean Corpuscular Hemoglobin 31.1 PG (26-34); Mean Corpuscular Volume 91.5 fL (80-100); Monocytes Absolute Auto 600 /uL (0-900); Monocytes Percent Auto 8.5 % (3-14); Neutrophils Absolute Auto 4200 /uL (1500-7000); Neutrophils Percent Auto 61.5 % (50-75); Platelet Count 284 X10^3/uL (150-400); Red Blood Cell Count 4.39 X10^6/uL (4.0-5.2); Red Cell Distribution Width 13.2 % (11.6-14.8); White Blood Cell Count 6.9 X10^3/uL (4.5-11.0)
[2024-01-02 13:54] LABS: BUN Creatinine Ratio 28.7 (6-22); Blood Urea Nitrogen 31 mg/dL (7-17); Calcium 9.5 mg/dL (8.4-10.2); Carbon Dioxide 25 mmol/L (22-32); Chloride 107 mmol/L (98-107); Estimated Glomerular Filt Rate 53 mL/min (>60); Glucose 89 mg/dL (80-110); HEMOLYSIS < 15 (0-50); Sodium 138 mmol/L (137-145)
== END ==
PROVIDERS: PCP Family Medicine; Referring Provider Nurse Practitioner Family; Visit Provider Nurse Practitioner Family
DX: I49.5 Sick sinus syndrome (principal)
CPT/HCPCS: 36415; 80048; 85025

== ENCOUNTER → 2024-04-22 16:05 | Outpatient (CLI) | payer MEDICARE, SELFPAY ==
[2022-11-10 15:19] VITALS: BMI 24.9
--- NOTE | 2024-04-22 16:06 | DI.MG.S_ITS ---
BILATERAL DIGITAL SCREENING MAMMOGRAM 3D/2D WITH CAD: 04/22/2024 CLINICAL: Routine screening. Personal history of right breast cancer. Comparison is made to exams dated: 04/17/2023 mammogram, 04/15/2022 mammogram, and 04/14/2021 mammogram - [facility]. There are scattered areas of fibroglandular density (category b / 25%-50% glandular tissue). Current study was also evaluated with a Computer Aided Detection (CAD) system. There are benign post operative findings in the right breast. No significant masses, calcifications, or other findings are seen in either breast. There has been no significant interval change. IMPRESSION: BENIGN There is no mammographic evidence of malignancy. A 1 year screening mammogram is recommended. This exam was interpreted at Station ID: [id number]. NOTE: For mammograms, a report in lay terms will be sent to the patient. Approximately 15% of breast malignancies will not be visualized mammographically. In the management of a palpable breast mass, a negative mammogram must not discourage biopsy of a clinically suspicious lesion. Electronically Signed By: Meek lerma/gianni:04/23/2024 11:13:09 letter sent: Normal Exam ACR BI-RADS Category 2: Benign
== END ==
PROVIDERS: PCP Family Medicine; Referring Provider Family Medicine; Visit Provider Family Medicine
DX: Z12.31 Encounter for screening mammogram for malignant neoplasm of breast (principal); Z85.3 Personal history of malignant neoplasm of breast
CPT/HCPCS: 77063; 77067

== ENCOUNTER → 2024-05-14 08:53 | Outpatient (CLI) | payer MEDICARE, SELFPAY ==
[2022-11-10 15:19] VITALS: BMI 24.9
--- NOTE | 2024-05-14 08:55 | DI.RAD.S_ITS ---
PROCEDURE: XR ELBOW RT MIN 3V INDICATIONS: Right Elbow Pain TECHNIQUE: 3 views of the elbow were acquired. COMPARISON: None. FINDINGS: Bones: No fractures or dislocations. No suspicious bony lesions. Soft tissues: No elbow joint effusion. No suspicious soft tissue calcifications. IMPRESSION: No acute bony abnormality or significant joint effusion. Dictated by: Nikkie Prince M.D. on 05/14/2024 at 9:30 Approved by: Nikkie Prince M.D. on 05/14/2024 at 9:31
[2024-05-14 09:58] LABS: Mean Corpuscular HGB Conc 33.4 % (30-36); Mean Corpuscular Hemoglobin 30.9 PG (26-34); Mean Corpuscular Volume 92.6 fL (80-100); Platelet Count 300 X10^3/uL (150-400); Red Blood Cell Count 4.53 X10^6/uL (4.0-5.2); Red Cell Distribution Width 13.1 % (11.6-14.8); White Blood Cell Count 8.3 X10^3/uL (4.5-11.0)
[2024-05-14 10:37] LABS: Alanine Aminotransferase 23 IU/L (<35); Albumin Globulin Ratio 1.9 (1.0-2.8); Alkaline Phosphatase 80 U/L (38-126); Aspartate Aminotransferase 32 IU/L (14-36); BUN Creatinine Ratio 34.9 (6-22); Bilirubin Total 0.3 mg/dL (0.2-1.3); Blood Urea Nitrogen 38 mg/dL (7-17); Calcium 9.4 mg/dL (8.4-10.2); Carbon Dioxide 30 mmol/L (22-32); Chloride 105 mmol/L (98-107); Cholesterol 177 mg/dL (140-199); Estimated Glomerular Filt Rate 53 mL/min (>60); Globulin 2.1 g/dL (1.7-4.1); Glucose 91 mg/dL (80-110); HDL Cholesterol 72 mg/dL (40-60); HEMOLYSIS < 15 (0-50); LDL Cholesterol Calculated 85 mg/dL (<100); Potassium 4.2 mmol/L (3.4-5.1); Sodium 139 mmol/L (137-145); Total Protein 6.1 g/dL (6.3-8.2); Triglycerides 101 mg/dL (35-150)
== END ==
PROVIDERS: PCP Family Medicine; Referring Provider Family Medicine; Visit Provider Family Medicine
DX: I10 Essential (primary) hypertension (principal); M25.521 Pain in right elbow
CPT/HCPCS: 36415; 73080; 80053; 80061; 85027

== ENCOUNTER → 2024-05-15 12:50 | Outpatient (CLI) | payer MEDICARE, SELFPAY ==
[2022-11-10 15:19] VITALS: BMI 24.9
[2024-05-15 15:48] LABS: Creatinine Urine Random 241.57 mg/dL
[2024-05-15 15:52] LABS: Microalbumin Urine Random 1.6 mg/dL (0-1.6)
== END ==
PROVIDERS: PCP Family Medicine; Referring Provider Family Medicine; Visit Provider Family Medicine
DX: I10 Essential (primary) hypertension (principal)
CPT/HCPCS: 82043; 82570

== ENCOUNTER → 2024-06-03 11:47 | Outpatient (CLI) | payer MEDICARE, SELFPAY ==
[2022-11-10 15:19] VITALS: BMI 24.9
--- NOTE | 2024-06-03 11:48 | DI.RAD.S_ITS ---
PROCEDURE: XR DEXA AXIAL SKELETON INDICATIONS: bone density screening COMPARISON: , CR, XR DEXA AXIAL SKELETON, 08/10/2022, 13:04. FINDINGS: Lumbar Spine: Bone mineral density 0.787 g/cm2, T score -2.2. There is interval 3.3% decrease in total lumbar spine bone mineral density. Left Femoral Neck: Bone mineral density 0.566 g/cm2, T score -2.6. There is interval 0.9% increase in left femoral neck bone mineral density. Left Hip: Bone mineral density 0.737 g/cm2, T score -1.7. There is interval 0.1% decrease in total left hip bone mineral density. Fracture Risk Calculation (when applicable): 10-year fracture risk of a major osteoporotic fracture 31 percent and of a hip fracture 21 percent. (T score greater or equal to -1.0 to: NORMAL) (T score from -1.1 to -2.4: OSTEOPENIA) (T score less than or equal to -2.5: OSTEOPOROSIS) IMPRESSION: Osteoporosis. Follow-up guidelines as follows: Osteoporosis: Consider a repeat DEXA and Vertebral Fracture Assessment (VFA) exam in 2 years or sooner if medically necessary, to reassess this patient's status. Osteopenia: Consider a repeat DEXA in 2-3 years to reassess this patient's status, or if there is a new clinical indication. Normal: Consider a repeat DEXA in 5 years or sooner, or if there is a new clinical indication. All treatment decisions require clinical judgment and consideration of individual patient factors, including patient preferences, comorbidities, previous drug use, risk factors not captured in the FRAX model (e.g., frailty, falls, vitamin D deficiency, increased bone turnover, interval significant decline in bone density ) and possible under- or over-estimation of fracture risk by FRAX. In addition, the NOF Guide recommends that FDA-approved medical therapies be considered in postmenopausal women and men age >= 50 years with a: * Hip or vertebral (clinical or morphometric) fracture * T-score of <=-2.5 at the spine or hip * Ten-year fracture probability by FRAX of >= 3% for hip fracture or >=20% for major osteoporotic fracture. Dictated by: Hair Pierre M.D. on 06/03/2024 at 15:20 Approved by: Hair Pierre M.D. on 06/03/2024 at 15:22
== END ==
PROVIDERS: PCP Family Medicine; Referring Provider Family Medicine; Visit Provider Family Medicine
DX: M81.0 Age-related osteoporosis without current pathological fracture (principal)
CPT/HCPCS: 77080

== ENCOUNTER → 2024-09-06 10:43 | Outpatient (CLI) | payer MEDICARE, SELFPAY ==
[2022-11-10 15:19] VITALS: BMI 24.9
[2024-09-06 11:38] LABS: Add Manual Diff / Slide Review NO; Basophils Absolute Auto 100 /uL (0-100); Basophils Percent Auto 0.9 % (0-2); Eosinophils Absolute Auto 100 /uL (0-450); Eosinophils Percent Auto 1.5 % (2-4); Hematocrit 40.5 % (36-46); Hemoglobin 13.6 g/dL (12.0-16.0); Lymphocytes Absolute Auto 1700 /uL (1100-4500); Lymphocytes Percent Auto 24.7 % (25-40); Mean Corpuscular HGB Conc 33.7 % (30-36); Mean Corpuscular Hemoglobin 31.1 PG (26-34); Mean Corpuscular Volume 92.4 fL (80-100); Monocytes Absolute Auto 700 /uL (0-900); Monocytes Percent Auto 9.6 % (3-14); Neutrophils Absolute Auto 4300 /uL (1500-7000); Neutrophils Percent Auto 63.3 % (50-75); Platelet Count 265 X10^3/uL (150-400); Red Blood Cell Count 4.38 X10^6/uL (4.0-5.2); Red Cell Distribution Width 13.2 % (11.6-14.8); White Blood Cell Count 6.9 X10^3/uL (4.5-11.0)
[2024-09-06 12:10] LABS: BUN Creatinine Ratio 36.7 (6-22); Blood Urea Nitrogen 40 mg/dL (7-17); Carbon Dioxide 29 mmol/L (22-32); Chloride 104 mmol/L (98-107); Estimated Glomerular Filt Rate 53 mL/min (>60); Glucose 82 mg/dL (70-99); HEMOLYSIS < 15 (0-50); Potassium 4.1 mmol/L (3.4-5.1); Sodium 138 mmol/L (137-145)
== END ==
LOC: LAB 10:47
PROVIDERS: PCP Family Medicine; Referring Provider Internal Medicine Cardiovascular Disease; Visit Provider Internal Medicine Cardiovascular Disease
DX: I47.10 Supraventricular tachycardia, unspecified (principal)
CPT/HCPCS: 36415; 80048; 85025

== ENCOUNTER → 2025-03-14 13:10 | Outpatient (CLI) | payer MEDICARE, SELFPAY ==
[2022-11-10 15:19] VITALS: BMI 24.9
--- NOTE | 2025-03-14 13:12 | DI.RAD.S_ITS ---
PROCEDURE: XR SCAPULA RT INDICATIONS: Scapula pain TECHNIQUE: Two views of the scapula were acquired. COMPARISON: None. FINDINGS: Bones: No fractures or dislocations. No suspicious bony lesions. Visualized ribs appear intact. Soft tissues: Overlying soft tissues appear normal. Several surgical clips in the right axilla. IMPRESSION: No radiographic evidence of scapular fracture. Dictated by: Tawnya Vieyra M.D. on 03/14/2025 at 17:15 Approved by: Tawnya Vieyra M.D. on 03/14/2025 at 17:16
--- NOTE | 2025-03-14 13:12 | DI.RAD.S_ITS ---
PROCEDURE: XR RIBS RT MIN 3V W CXR 1V INDICATIONS: Right lateral rib pain TECHNIQUE: Two views of the ribs were acquired, along with a single view chest. COMPARISON: None. FINDINGS: Surgical changes and devices: Surgical clips in the right axilla and lumpectomy changes in the right breast tissue. Cholecystectomy changes.. Bones and chest wall: No visible displaced fractures or dislocations. No suspicious bony lesions. Overlying soft tissues appear unremarkable. Lungs and pleura: Coarse interstitial markings. Hyperinflated lungs. No pneumothorax or significant pleural effusion. Mediastinum: Mediastinal contours appear normal. Heart size is normal. IMPRESSION: No displaced rib fracture or pneumothorax. Dictated by: Tawnya Vieyra M.D. on 03/14/2025 at 17:16 Approved by: Tawnya Vieyra M.D. on 03/14/2025 at 17:17
== END ==
LOC: DI 13:12
PROVIDERS: PCP Family Medicine; Referring Provider Family Medicine; Visit Provider Family Medicine
DX: M89.8X1 Other specified disorders of bone, shoulder (principal)
CPT/HCPCS: 71101; 73010

== ENCOUNTER 2025-03-17 12:48 | Emergency (ER) | payer MEDICARE, SELFPAY ==
[2022-11-10 15:19] VITALS: BMI 24.9
[2025-03-17 12:53] VITALS: BP 171/75; PULSE 73; RESP 17; TEMP 36.6; O2SAT 99; BMI 23.1
--- NOTE | 2025-03-17 12:59 | DI.CT.S_ITS ---
PROCEDURE: CT CHEST WO CON INDICATIONS: injury right side/ribs/scapula TECHNIQUE: Noncontrast 5 mm thick sections acquired from the pulmonary apices to the posterior costophrenic angles. 1 mm lung window, 5 mm thick coronal and sagittal and 7 mm axial MIP reformats were then acquired. For radiation dose reduction, the following was used: automated exposure control, adjustment of mA and/or kV according to patient size. COMPARISON: None. FINDINGS: Image quality: Diagnostic. Lower Neck: No enlarged lymph nodes. Thyroid: No thyroid nodules which require sonographic follow up, per consensus guidelines. Axillae: No enlarged lymph nodes. Surgical clips are noted in right axilla. Chest Wall: Unremarkable. Bones: No aggressive appearing bony lesions. No acute displaced right rib fracture. Subtle linear lucency involving right anterolateral 4th and 5th ribs concerning for nondisplaced fractures best seen on series 2, images 35 and 39, series 4 image 38. No acute scapular fracture. No acute vertebral body compression fracture. [id number] rightward curvature of thoracic spine is seen. Lungs and Pleura: No pneumothorax or pleural effusions. Scarring/atelectasis at bilateral lung bases are seen. No consolidation or suspicious nodules. Heart: Heart size is enlarged. No pericardial effusion. Thoracic Vessels: Ascending thoracic aortic aneurysm measures up to 4.5 cm in largest AP diameter is seen. The pulmonary arteries demonstrate normal size. Mediastinum and Khloe: No enlarged lymph nodes. Esophagus: Air distended esophageal lumen without esophageal wall thickening. Small hiatal hernia. Upper Abdomen: Visualized upper abdomen solid organs and bowel loops appear normal. IMPRESSION: 1. Finding is concerning for very subtle nondisplaced right anterolateral 4th and 5th rib fractures. No displaced rib fractures. No scapular fracture. No acute vertebral body compression fracture. 2. Cardiomegaly and ascending thoracic aortic aneurysm as above. No mediastinal or hilar lymphadenopathy. 3. Air distended esophageal lumen without esophageal wall thickening. Small hiatal hernia. 4. Bibasilar scarring/atelectasis. No focal infiltrate, pleural effusion or pneumothorax. Dictated by: Hair Pierre M.D. on 03/17/2025 at 14:09 Approved by: Hair Pierre M.D. on 03/17/2025 at 14:16
[2025-03-17 15:48] VITALS: BP 145/67; PULSE 70; RESP 18; O2SAT 100
--- NOTE | 2025-03-24 15:29 | ED.BACK ---
HPI - Back Pain/Injury <Brynn Minor PA-C - Last Filed: 03/24/25 15:46> General Chief Complaint: Back Pain/Injury Stated Complaint: Branch fell on her, R rib pain, xray no breaks Time Seen by Provider: 03/17/25 13:02 Source: patient History of Present Illness HPI Narrative: 79-year-old female with past medical history hypertension, PAD, CKD, pancreatic insufficiency, GERD, first-degree AV block presents to the ED with right-sided rib pain and scapular pain following a injury sustained 1 week ago. Patient states that a branch fell on her right scapula/ribs, she had an x-ray done at a walk-in clinic which did not show any fractures. However, patient presents to the ED since her pain has not improved. Pain is worse with inspiration and with movement. No chest pain, shortness of breath, fever, chills, lightheadedness, dizziness, syncope. Related Data Home Medications ?Medication ?Instructions ?Recorded ?Confirmed loratadine 10 mg tablet (Claritin) 10 mg PO QDAY ##0 05/21/16 03/14/25 diphenhydramine HCl 25 mg capsule 50 mg PO Q6-8H PRN Allergic 04/25/18 03/14/25 (Benadryl) Symptoms polysaccharide iron complex 150 mg 150 mg PO DAILY 07/25/18 03/14/25 iron capsule (Ferrex) Resmed Aircurve 10 BIPAP #1 ea 11/26/18 03/14/25 cholecalciferol (vitamin D3) 125 125 mcg PO DAILY 04/22/21 03/14/25 mcg (5,000 unit) capsule [id number] 1 cap PO TID 07/02/24 03/14/25 36,000-114,000-180,000 unit capsule,delay rel (Creon) Previous Rx's ?Medication ?Instructions ?Recorded fluticasone propionate 50 1 spray intranasal BID #16 grams 05/12/23 mcg/actuation nasal spray,suspension albuterol sulfate 90 mcg/actuation 2 puff inhalation Q6H PRN 01/18/24 aerosol inhaler shortness of breath or wheezing #6.7 grams Massage therapy #1 ea 05/14/24 epinephrine 0.3 mg/0.3 mL 0.3 mg (0.3 mL) IM SEE 05/14/24 injection, auto-injector (EpiPen INSTRUCTIONS PRN Allergic Reaction 2-Shen) #2 ea loperamide 2 mg capsule 2 mg PO Q4H PRN for diarrhea #100 05/14/24 caps esomeprazole magnesium 40 mg 40 mg PO DAILY #90 caps 05/17/24 capsule,delayed release venlafaxine 37.5 mg 37.5 mg PO DAILY #90 caps 09/18/24 capsule,extended release 24 hr ezetimibe 10 mg tablet 10 mg PO DAILY #90 tabs 09/27/24 cyclobenzaprine 10 mg tablet 10 mg PO BEDTIME PRN muscle spasm 10/02/24 #30 tabs hydrochlorothiazide 12.5 mg tablet 12.5 mg PO DAILY #90 tabs 11/26/24 buspirone 15 mg tablet 15 mg PO BID #180 tabs 11/28/24 rizatriptan 10 mg tablet (Maxalt) 10 mg PO SEE INSTRUCTIONS #12 tabs 01/09/25 alprazolam 0.25 mg tablet 0.25 mg PO DAILY PRN anxiety #20 01/21/25 tabs oxycodone-acetaminophen 5 mg-325 1 tab PO Q6H PRN pain #20 tabs 03/25/25 mg tablet (Percocet) Allergies Allergy/AdvReac Type Severity Reaction Status Date / Time lentils (LENTILS) Allergy Severe SOB Verified 03/25/25 10:35 nut - unspecified (NUT) Allergy Severe ANAPHYLAXIS Verified 03/25/25 10:35 soy (SOY) Allergy Severe SOB Verified 03/25/25 10:35 latex (LATEX) Allergy Intermediate RASH Verified 03/25/25 10:35 propofol (PROPOFOL) Allergy Unknown UNSURE OF Verified 03/25/25 10:35 REACTION-related to soy?? corn Allergy Verified 03/25/25 10:35 grapefruit Allergy Verified 03/25/25 10:35 legumes Allergy Verified 03/25/25 10:35 orange Allergy Verified 03/25/25 10:35 potato Allergy Verified 03/25/25 10:35 adhesive tape (ADHESIVE TAPE) AdvReac Mild Verified 03/25/25 10:35 iceburg lettuce Allergy Uncoded 03/25/25 10:35 Review of Systems <Brynn Minor PA-C - Last Filed: 03/24/25 15:46> Constitutional Constitutional: Denies chills, Denies fatigue, Denies fever(s), Denies frequent falls, Denies lethargy and Denies weakness Eyes Eyes: Denies change in vision, Denies eye discharge, Denies irritation and Denies loss of vision ENT Ears, Nose, Mouth, and Throat: Denies change in voice, Denies dizziness, Denies neck pain, Denies sore throat and Denies throat swelling Cardiovascular Cardiovascular: Denies chest pain, Denies irregular heart rhythm, Denies lightheadedness, Denies palpitations, Denies dyspnea, Denies dyspnea on exertion and Denies orthopnea Respiratory Respiratory: Denies cough, Denies dyspnea, Denies dyspnea on exertion and Denies wheezing Gastrointestinal Gastrointestinal: Denies abdominal pain, Denies change in bowel habits, Denies diarrhea, Denies nausea and Denies vomiting Musculoskeletal Musculoskeletal: Denies neck pain and Denies numbness Integumentary/Breasts Skin/Breast: Denies pruritus, Denies erythema, Denies rash and Denies wounds Comments: R sided scapular and rib pain Neurologic Neurologic: Denies behavioral changes, Denies confusion, Denies dizziness, Denies frequent falls, Denies loss of vision, Denies numbness and Denies weakness Psychiatric Psychiatric: Denies anxiety, Denies behavioral changes, Denies confusion, Denies depression, Denies homicidal ideation and Denies suicidal ideation Endocrine Endocrine: Denies fatigue, Denies flushing and Denies palpitations Hematologic/Lymphatic Hematologic/Lymphatic: Denies easy bruising Allergic/Immunologic Allergic/Immunologic: Denies urticaria, Denies throat swelling and Denies wheezing Patient History <Brynn Minor PA-C - Last Filed: 03/24/25 15:46> Medical History (Updated 03/24/25 @ 16:00 by Topher Heredia MD) Celiac artery aneurysm Ascending aorta dilation Arteriovenous malformation of duodenum Insomnia, psychophysiological Breast cancer IBS (irritable bowel syndrome) Upper gastrointestinal hemorrhage (04/09/15) Osteoarthritis (03/21/11) Obstructive sleep apnea syndrome (03/21/11) Diaphragmatic hernia (03/21/11) Gastric ulcer Left ventricular outflow tract obstruction Surgical History S/P insertion of iliac artery stent Status post hysterectomy History of cataract removal with insertion of prosthetic lens Status post breast lumpectomy Status post laparoscopic cholecystectomy Status post tonsillectomy and adenoidectomy History of third molar tooth extraction Status post Elizabeth fundoplication Social History marital status: details: trish Lincoln, lives in [place] household members: spouse lives independently: Yes caregiver/support person: No housing: house alcohol intake: current caffeine: Yes frequency: 3-4 times per week Smoking Status: Never smoker alcohol intake frequency: 3 or more drinks per day Exam <Brynn Minor PA-C - Last Filed: 03/24/25 15:46> Narrative Exam Narrative: Const General:?cooperative, healthy appearing and comfortable HENMT Head:?normal to inspection Ears:?hearing grossly normal bilaterally Nose:?external nose normal Face and sinus:?normal facial exam and sinuses nontender Mouth:?oral mucosae normal Throat:?posterior oropharynx normal Eyes General:?appearance normal, both eyes and all related structures Neck Neck:?normal visual inspection and no lymphadenopathy noted Resp Effort & Inspection:?normal respiratory effort Auscultation:?clear to auscultation bilaterally Cardio Rate:?regular rate Rhythm:?regular rhythm Musculoskeletal Tenderness to palpation in the right scapula region, right-sided lateral ribs. No deformities, bruising. Neuro General:?patient alert, patient awake and patient oriented x3 Initial Vital Signs Initial Vital Signs: Vital Signs Temperature 98 F 03/17/25 12:53 Pulse Rate 73 03/17/25 12:53 Respiratory Rate 17 03/17/25 12:53 Blood Pressure 171/75 H 03/17/25 12:53 Pulse Oximetry 99 03/17/25 12:53 Oxygen Delivery Method Room Air 03/17/25 12:53 <Leonor Ritchie DO - Last Filed: 03/26/25 17:02> Initial Vital Signs Initial Vital Signs: Vital Signs Temperature 98 F 03/17/25 12:53 Pulse Rate 73 03/17/25 12:53 Respiratory Rate 17 03/17/25 12:53 Blood Pressure 171/75 H 03/17/25 12:53 Pulse Oximetry 99 03/17/25 12:53 Oxygen Delivery Method Room Air 03/17/25 12:53 Course <Brynn Minor PA-C - Last Filed: 03/24/25 15:46> Orders Ordered: Discontinued Medications Oxycodone/Acetaminophen (Oxycodone/Acetaminophen 5/325 Tablet) 1 tab PO NOW ONE Stop: 03/17/25 13:04 Last Admin: 03/17/25 13:31 Dose: 1 tab Documented By: FILI <Leonor Ritchie DO - Last Filed: 03/26/25 17:02> Orders Ordered: Discontinued Medications Oxycodone/Acetaminophen (Oxycodone/Acetaminophen 5/325 Tablet) 1 tab PO NOW ONE Stop: 03/17/25 13:04 Last Admin: 03/17/25 13:31 Dose: 1 tab Documented By: FILI MDM - Back Pain/Injury <Brynn Minor PA-C - Last Filed: 03/24/25 15:46> [facility] Narrative Medical decision making narrative: 79-year-old female with past medical history hypertension, PAD, CKD, pancreatic insufficiency, GERD, first-degree AV block presents to the ED with right-sided rib pain and scapular pain following a injury sustained 1 week ago. Concern for rib fracture versus scapular fracture versus contusion versus other. Will obtain CT chest. CT chest is concerning for very subtle nondisplaced right anterolateral 4th and 5th rib fractures. No displaced rib fractures. No scapular fracture. No acute vertebral body compression fracture. Cardiomegaly and ascending thoracic aortic aneurysm. No mediastinal or hilar lymphadenopathy. Air distended esophageal lumen without esophageal wall thickening. Small hiatal hernia. Bibasilar scarring/atelectasis. No focal infiltrate, pleural effusion or pneumothorax. RT was consulted for incentive spirometry. Discussed findings with patient, prescribed pain medication, encourage incentive spirometry to prevent pneumonia. Recommend follow-up with PCP as soon as possible. ED return precautions discussed with patient. Patient verbalized understanding. Medical records reviewed: Yes Discharge Plan Departure Patient Disposition: Home Clinical Impression: Fracture, ribs Qualifiers: Encounter type: initial encounter Fracture type: closed Laterality: right Qualified Code(s): S22.41XA - Multiple fractures of ribs, right side, initial encounter for closed fracture Instructions: DI for Rib Fracture Activity Restrictions/Additional Instructions: You were evaluated in the emergency department today for upper back pain. You have 2 fractured ribs that are nondisplaced on the right side that are contributing to your symptoms. You have been prescribed pain medication to take for the next few days. You have also been given an incentive spirometer to encourage deep breathing and prevent complications such as pneumonia. Please follow-up with your primary care doctor as soon as possible. Return to the ED if you have worsening symptoms, chest pain, shortness of breath. Prescriptions: No Action Creon 36,000-114,000- 180,000 unit capsule,delayed release(DR/EC) 1 cap PO TID epinephrine [EpiPen 2-Shen] 0.3 mg/0.3 mL auto-injector 0.3 mg IM SEE INSTRUCTIONS PRN (Reason: Allergic Reaction) Qty: 2 1RF (DME) Massage therapy See Rx Instructions .Route .MEDSUPPLY Qty: 1 0RF Rx Instructions: Monthy loperamide 2 mg capsule 2 mg PO Q4H PRN (Reason: for diarrhea) Qty: 100 5RF oxycodone-acetaminophen [Percocet] 5-325 mg tablet 1 tab PO Q6H PRN (Reason: pain) Qty: 20 0RF loratadine [Claritin] 10 MG tablet 10 mg PO QDAY Qty: 0 fluticasone propionate 50 mcg/actuation spray,suspension 1 spray intranasal BID Qty: 16 2RF Rx Instructions: administer into each nostril albuterol sulfate 90 mcg/actuation HFA aerosol inhaler 2 puff inhalation Q6H PRN (Reason: shortness of breath or wheezing) Qty: 6.7 11RF esomeprazole magnesium 40 mg capsule,delayed release(DR/EC) 40 mg PO DAILY Qty: 90 3RF venlafaxine 37.5 mg capsule,extended release 24hr 37.5 mg PO DAILY Qty: 90 1RF ezetimibe 10 mg tablet 10 mg PO DAILY Qty: 90 3RF cyclobenzaprine 10 mg tablet 10 mg PO BEDTIME PRN (Reason: muscle spasm) Qty: 30 1RF hydrochlorothiazide 12.5 mg tablet 12.5 mg PO DAILY Qty: 90 3RF buspirone 15 mg tablet 15 mg PO BID Qty: 180 1RF rizatriptan [Maxalt] 10 mg tablet 10 mg PO SEE INSTRUCTIONS Qty: 12 11RF Rx Instructions: 1 tab at onset and 1 tab 2 hours later if needed alprazolam 0.25 mg tablet 0.25 mg PO DAILY PRN (Reason: anxiety) Qty: 20 0RF polysaccharide iron complex [Ferrex 150] 150 mg iron capsule 150 mg PO DAILY cholecalciferol (vitamin D3) 125 mcg (5,000 unit) capsule 125 mcg PO DAILY diphenhydramine HCl [Benadryl] 25 mg Capsule 50 mg PO Q6-8H PRN (Reason: Allergic Symptoms) (DME) Resmed Aircurve 10 BIPAP Qty: 1 Dose Instruction: As directed Patient Comments: Pressure: IPAP 12 EPAP 4 DME: [facility] Rx Instructions: As directed Referrals: Topher Heredia MD [Primary Care Provider, Family Practice] Stand Alone Forms: Patient Portal/API ED Sign-out <Leonor Ritchie, - Last Filed: 03/26/25 17:02> Cosign ED Attending Cosgianlucaature Attestation: I was immediately available in the department for consultation.
== END 2025-03-17 16:19 | disposition home or self-care (01) ==
PROVIDERS: Emergency Provider Student in an Organized Health Care Education/Training Program; PCP Family Medicine
DX: S22.41XA Multiple fractures of ribs, right side, initial encounter for closed fracture (principal); W20.8XXA Other cause of strike by thrown, projected or falling object, initial encounter
CPT/HCPCS: 71250; 99283

== ENCOUNTER → 2025-03-25 11:09 | Outpatient (CLI) | payer MEDICARE, SELFPAY ==
[2022-11-10 15:19] VITALS: BMI 24.9
[2025-03-25 20:31] LABS: Appearance Urine UA CLEAR; Bilirubin Urine UA NEGATIVE (NEGATIVE); Color Urine UA YELLOW; Glucose Urine UA NEGATIVE (Negative); Ketones Urine UA NEGATIVE (NEGATIVE); Leukocyte Esterase Urine UA NEGATIVE (NEGATIVE); Nitrite Urine UA NEGATIVE (Negative); Occult Blood Urine UA TRACE-INTACT (Negative); Protein Urine UA NEGATIVE (Negative); Specific Gravity Urine UA 1.020 (1.000-1.035); Urobilinogen Urine UA 0.2 E.U./dL (0.2)
[2025-03-25 20:32] LABS: pH Urine UA 5.5 (4.5-8.0)
== END ==
PROVIDERS: PCP Family Medicine; Visit Provider Family Medicine
DX: R35.0 Frequency of micturition (principal)
CPT/HCPCS: 81001; 87086

== ENCOUNTER → 2025-03-25 11:19 | Outpatient (CLI) | payer MEDICARE, SELFPAY ==
[2022-11-10 15:19] VITALS: BMI 24.9
[2025-03-25 12:19] LABS: Hematocrit 41.4 % (36-46); Hemoglobin 13.9 g/dL (12.0-16.0); Mean Corpuscular HGB Conc 33.6 % (30-36); Mean Corpuscular Hemoglobin 30.3 PG (26-34); Mean Corpuscular Volume 90.4 fL (80-100); Platelet Count 316 X10^3/uL (150-400)
[2025-03-25 12:41] LABS: Alanine Aminotransferase 19 IU/L (<35); Albumin 4.2 g/dL (3.5-5.0); Albumin Globulin Ratio 1.8 (1.0-2.8); Alkaline Phosphatase 81 U/L (38-126); Blood Urea Nitrogen 37 mg/dL (7-17); Calcium 9.5 mg/dL (8.4-10.2); Carbon Dioxide 27 mmol/L (22-32); Chloride 104 mmol/L (98-107); Cholesterol 169 mg/dL (140-199); Estimated Glomerular Filt Rate > 60 mL/min (>60); Globulin 2.4 g/dL (1.7-4.1); Glucose 96 mg/dL (70-99); HDL Cholesterol 84 mg/dL (40-60); HEMOLYSIS < 15 (0-50); Potassium 4.4 mmol/L (3.4-5.1); Sodium 140 mmol/L (137-145); Total Protein 6.6 g/dL (6.3-8.2); Triglycerides 70 mg/dL (35-150)
== END ==
PROVIDERS: PCP Family Medicine; Referring Provider Family Medicine; Visit Provider Family Medicine
DX: I10 Essential (primary) hypertension (principal); R35.0 Frequency of micturition
CPT/HCPCS: 36415; 80053; 80061; 81001; 85027; 87086

== ENCOUNTER → 2025-04-14 08:06 | Outpatient (CLI) | payer MEDICARE, SELFPAY ==
[2022-11-10 15:19] VITALS: BMI 24.9
--- NOTE | 2025-04-14 08:07 | DI.MG.S_ITS ---
MM screening mammo BI: 04/14/2025. BI-RADS: 2 CLINICAL: 79-year old female for bilateral screening mammogram. No Tyrer-Cuzick risk score calculation due to the patient's personal history of breast cancer. Patient reports a history of right breast carcinoma diagnosed at age 56. Status-post right lumpectomy with hormonal therapy. Patient has undergone neoadjuvant chemotherapy. No first- degree family history of breast cancer. PRIOR EXAMS: 04/22/2024, 04/17/2023, 04/15/2022, 04/14/2021, 04/10/2020, 04/09/2019, 03/21/2018, 03/10/2017. MAMMOGRAPHY TECHNIQUE: 2D and 3D (tomosynthesis) digital mammographic views obtained, with additional images as needed for full coverage. Current study was also evaluated with a Computer Aided Detection (CAD) system. DENSITY C. The breasts are heterogeneously dense, which may obscure small masses. MAMMOGRAPHY FINDINGS Right: Benign-appearing post-surgical changes noted on the right. There are no suspicious masses, calcifications, or other findings in the breast. Left: No suspicious mass, asymmetry, microcalcification, or other abnormality seen. IMPRESSION: Right * No evidence of malignancy with benign findings. Left * No evidence of malignancy. RECOMMENDATIONS Bilateral * Annual screening mammography. OVERALL ASSESSMENT CATEGORY BI-RADS-2: Benign. The [employer] recommends annual screening mammography beginning at age 40 for women with average risk of breast cancer. ELECTRONICALLY SIGNED: Desiree Dee M.D. on 04/16/2025 at 10:52:23 AM PT Interpreting Station ID: [id number]
== END ==
LOC: MAMMO 08:07
PROVIDERS: PCP Family Medicine; Referring Provider Family Medicine; Visit Provider Family Medicine
DX: Z12.31 Encounter for screening mammogram for malignant neoplasm of breast (principal); R92.333 Mammographic heterogeneous density, bilateral breasts; Z85.3 Personal history of malignant neoplasm of breast
CPT/HCPCS: 77063; 77067

== ENCOUNTER → 2025-04-15 09:47 | Outpatient (CLI) | payer MEDICARE, SELFPAY ==
[2022-11-10 15:19] VITALS: BMI 24.9
--- NOTE | 2025-04-15 10:01 | DI.CT.S_ITS ---
PROCEDURE: CT ANGIO CHEST ABDOMEN PELVIS INDICATIONS: Aneurysm of other specified arteries TECHNIQUE: Precontrast 5 mm thick sections acquired from the lung apices to the iliac crests. After the administration of intravenous contrast, 2.5 mm thick sections again acquired from the lung apices to the iliac crests. Maximum intensity projection (MIP) oblique sagittal and coronal reformats were then acquired. For radiation dose reduction, the following was used: automated exposure control. COMPARISON: [facility], CT, CT ABDOMEN PELVIS W CON, 01/06/2023, 10:27. [facility], CT, CT CHEST WO CON, 03/17/2025, 13:11. FINDINGS: Image quality: Diagnostic Lungs and pleura: Scattered scarring and atelectasis. No airspace consolidation or pleural effusion. Small fat containing Bochdalek's hernias. Multiple small pulmonary nodules are present, for example 4 mm nodule in the right upper lung (8/90). Mediastinum, heart, and esophagus: Possible small hiatal hernia. Moderately patulous esophagus mostly gas-filled. No central pulmonary embolism. Borderline cardiomegaly. The ascending aorta measures 4.5 cm at the level of the main pulmonary artery, similar to recent prior imaging. No enlarged lymph nodes by size criteria. Mild thoracic aortic calcifications also involving the great arch vessels. Chest wall and thyroid: Right chest wall and axillary postsurgical changes Liver: Suspect anterior left lobe hemangioma again seen. 22 cm hepatomegaly. Gallbladder and biliary system: Cholecystectomy clips. Biliary ductal dilation again seen, measuring up to 1 cm in the mid CBD. Pancreas: Mild parenchymal atrophy. Pancreatic ductal dilation again seen, measuring up to the 0.6 cm at the head. Increased cystic lesion is present in the uncinate process measuring 1.3 x 0.8 cm. Spleen: Nonenlarged Adrenals: No discrete nodule Kidneys: No solid renal mass or hydronephrosis. Vessels and lymph nodes: Aneurysm of the celiac trunk again seen measuring up to 1.5-1.6 cm, similar. Mild aortoiliac atherosclerotic calcification, also involving branch vessels. No abdominal aortic aneurysm. No lymph nodes enlarged by size criteria. Left common iliac stent material again seen, with patent appearance of the lumen Bowel and peritoneum: Possible gastric wall thickening. Small hiatal hernia. No bowel obstruction. Possible mild wall thickening also seen in the distal colon. No drainable abscess or ascites. Body wall: Unremarkable Pelvis: Under distended urinary bladder. Uterus is absent. Bones: No aggressive appearing osseous abnormality. Degenerative osseous changes. Possible old rib fractures. IMPRESSION: Aneurysmal ascending aorta measuring 4.5 cm in the mid aspect. This is similar to recent chest CT. Similar aneurysmal dilation of the celiac trunk compared to 2022. Dilated pancreatic duct. Increased cystic lesion at the uncinate process measuring 1.3 x 0.8 cm. This could represent a cystic neoplasm such as IPMN. This could be further assessed with pancreas MRI. Possible gastric wall thickening and distal colonic wall thickening, not well assessed due to under distension. Endoscopy can further evaluate if necessary. This may represent gastritis and colitis. Small pulmonary nodules measuring up to 4 mm. Consider dedicated follow-up if the patient is considered at elevated risk for pulmonary malignancy. Other findings above. Dictated by: Meek Munguia M.D. on 04/15/2025 at 15:19 Approved by: Meek Munguia M.D. on 04/15/2025 at 15:31
== END ==
LOC: CT 09:48
PROVIDERS: PCP Family Medicine; Referring Provider Family Medicine; Visit Provider Physician Assistant
DX: I72.8 Aneurysm of other specified arteries (principal); I71.21 Aneurysm of the ascending aorta, without rupture; K86.89 Other specified diseases of pancreas; R91.8 Other nonspecific abnormal finding of lung field; K83.8 Other specified diseases of biliary tract; I70.0 Atherosclerosis of aorta; K44.9 Diaphragmatic hernia without obstruction or gangrene; Z90.710 Acquired absence of both cervix and uterus
CPT/HCPCS: 71275; 74174; Q9967